=== PATIENT | male | born 1950 | race Caucasian/White ===

== ENCOUNTER 2016-05-13 12:13 | Day surgery (SDC) | payer MEDICARE ==
[2016-05-06 13:43] VITALS: BMI 30.1
[2016-05-13 14:04] LABS: Glucose,Whole Blood 93 mg/dL (75-99)
[2016-05-13] MEDS ORDERED: SODIUM CHLORIDE 0.9% 1,000 ML IV ONE (14:07)
[2016-05-13] MEDS ORDERED: SODIUM CHLORIDE 0.9% 1,000 ML IV SCH (14:08)
[2016-05-13] MEDS ORDERED: CLINDAMYCIN 900 MG in DEXTROSE 5% IN WATER 50 ML IVPB ONE ×2 (14:08)
[2016-05-13] MEDS ORDERED: ISOPROTERENOL 250 MCG/1.25 ML SYR IV ONE (14:21)
[2016-05-13] MEDS ORDERED: fentaNYL (PF) 50 MCG/ML 2 ML AMP ONE (14:21)
[2016-05-13] MEDS ORDERED: MIDAZOLAM 2 MG/2 ML VIAL ONE (14:21)
[2016-05-13] MEDS ORDERED: HYDROmorphone (PF) 1 MG/ML ONE (14:21)
[2016-05-13] MEDS ORDERED: diphenhydrAMINE 50 MG/ML 1 ML VIAL ONE (14:21)
[2016-05-13] MEDS ORDERED: PROPOFOL 10 MG/ML 20 ML VIAL IV ONE (14:21)
[2016-05-13 14:31] LABS: Anion Gap 13 mmol/L; Blood Urea Nitrogen 13 mg/dL (9-20); Calcium 9.1 mg/dL (8.4-10.2); Carbon Dioxide 25 mmol/L (22-30); Chloride 102 mmol/L (98-107); Glucose 91 mg/dL (74-99); Non-African American GFR(MDRD) >60 (>60 ml/min/1.73 sqM); Potassium 4.4 mmol/L (3.5-5.1); Sodium 140 mmol/L (137-145)
[2016-05-13 14:32] LABS: Basophils % (A) 1 %; CHCM 33.9; Eosinophils # (A) 0.2 k/uL (0-0.7); Eosinophils % (A) 4 %; HCT 40.6 % (39.0-53.0); HDW 2.68; HGB 13.7 gm/dL (13.0-17.5); Luc # (Auto) 0.21; Luc % (Auto) 4; Lymphocytes % (A) 20 %; MCHC 33.8 g/dL (31.0-37.0); MCV 94.6 fL (80.0-100.0); Mean Platelet Volume 7.4; Monocytes # (A) 0.5 k/uL (0-1.0); Monocytes % (A) 9 %; Neutrophils % (A) 62 %; RBC 4.29 m/uL (4.30-5.90); RDW 15.1 % (11.5-15.5); WBC 4.9 k/uL (3.8-10.6); WBC (Perox) 5.29
[2016-05-13] MEDS ORDERED: LIDOCAINE 2% INJ 20 MG/ML SQ ONE ×2 (15:02)
[2016-05-13] MEDS ORDERED: HEPARIN SODIUM (1,000 UNIT/ML) 1,000 UNIT in SODIUM CHLORIDE 0.9% 1,000 ML IRRIGATION ONE (15:23)
[2016-05-13] MEDS ORDERED: ACETAMINOPHEN TAB 325 MG TAB PO PRN (16:54)
[2016-05-13] MEDS ORDERED: HYDROcodone/APAP 5-325MG 1 EACH TAB PO PRN (16:54)
[2016-05-13] MEDS ORDERED: ACETAMINOPHEN IV (For NPO) 1,000 MG in EMPTY BAG 1 BAG IVPB ONE (16:54)
--- NOTE | 2016-05-13 18:06 | LTR ---
May 13, 2016 RE: Carlos Alberto Cuellar Dear Dr. Chandler, We had the pleasure of seeing Mr. Carlos Alberto Cuellar in electrophysiology followup. As you know, Mr. Cuellar has atrial fibrillation and is on amiodarone 200 mg a day. He also has recurrent atrial flutter. He underwent successful mapping and ablation for atrial flutter with demonstrated complete bidirectional block. Following that, on Isuprel I could not induce any atrial fibrillation. Therefore I would recommend continuing anticoagulation but reducing the dose of amiodarone to 100 mg p.o. daily. He will continue to follow up with you and Dr. Meier as before. Thank you for entrusting us with the care of your patient. Warm regards. Sincerely, Eren Allen M.D.
--- NOTE | 2016-05-13 18:18 | PCN ---
Mr. Carlos Alberto Cuellar has a history of atrial fibrillation and atrial flutter. He is on amiodarone 200 mg a day and on Xarelto. He was referred by Dr. Meier for atrial flutter ablation. The patient was brought to the EP lab in a fasting state. Written informed consent was obtained prior to the procedure. First his dual-chamber pacemaker that was implanted many years back at [facility] was interrogated and reprogrammed. Lead impedance was stable. Reprogramming was performed to DDD mode at 60 bpm. AV delay was prolonged to 300 ms. Intravenous antibiotics were administered. Venous sheaths were placed in the right and left femoral veins. Coronary sinus catheter was placed. A mapping catheter was placed in the high right atrium, later moved to the right ventricle. The patient has complete heart block and therefore His bundle catheter was unnecessary. Atrial ventricular extrastimulation was performed. No arrhythmias were induced in the drug-free state. On Isuprel, atrial extrastimulation as well as ventricular extrastimulation was performed. No atrial fibrillation, VT or any other SVT was induced. Intracardiac echocardiography was performed. The right and left atria were identified. The right atrial isthmus was identified. The tricuspid valve was tagged and 3-D anatomic mapping of the right atrial isthmus was performed. An irrigated-tip catheter was used and an RF line of block was made from the tricuspid annulus to the IVC. A complete line of block was made without any anatomic gaps, with 100% grid. Following that, pacing maneuvers were performed and bidirectional block was proven. The isthmus conduction time was greater than 230 ms on amiodarone 200 mg a day. Patient tolerated the procedure well without any acute complications. At the end of the procedure the pacemaker was again interrogated and then reprogrammed. Rate responsiveness was reprogrammed. AV delay was reprogrammed to 200 ms (DDDR 60 to 120 bpm). After that, atrial ventricular extrastimulation was again performed, and no SVT was induced, even on high-dose Isuprel. No atrial fibrillation was induced, either. PLAN: Reduce amiodarone to 100 mg p.o. daily and continue Xarelto and continue all other cardiac medications.
--- NOTE | 2016-05-13 18:20 | DS ---
DATE OF ADMISSION: 05/13/2016 DATE OF DISCHARGE: Mr. Carlos Alberto Cuellar is a 65-year-old male patient who underwent atrial flutter ablation. He was monitored overnight on telemetry and will be discharged home tomorrow if he is stable. He has a history of persistent atrial fibrillation. Amiodarone will be reduced to 100 mg p.o. daily. Xarelto will be continued. He will follow up with Dr. Meier as before.
[2016-05-13 21:03] LABS: Glucose,Whole Blood 140 mg/dL (75-99)
[2016-05-13] MEDS: ALLOPURINOL 100 MG TAB PO SCH (21:22)
[2016-05-13] MEDS: PREGABALIN 75 MG CAP PO SCH (21:22)
[2016-05-13] MEDS: metFORMIN 500 MG TAB PO SCH (21:22)
[2016-05-14 07:26] LABS: Glucose,Whole Blood 106 mg/dL (75-99)
[2016-05-14] MEDS ORDERED: PANTOPRAZOLE 40 MG TABLET PO SCH (07:30)
--- NOTE | 2016-05-14 07:44 | P.DS ---
Providers Attending physician: Eren Allen Primary care physician: Cameron [facility] Course: No chest discomfort no breathing trouble is lying flat in bed and then he has also sat at the edge of the bed No dizziness or lightheadedness Vitals stable afebrile 97.9F, pulse rate 60, blood pressure 111/68 mmHg pulse ox 92%. He uses CPAP mask last night No JVD No orthopnea Normal heart sounds no rub no gallop Normal breath sounds no rhonchi no crackles Abdomen is soft nontender Both groins of healed well no hematoma no swelling no pain No lower extremity edema Impression Persistent atrial fibrillation, in sinus rhythm, on oral amiodarone Recurrent atrial flutter, drug refractory Status post successful atrial flutter ablation Obstructive sleep apnea Without Adult-onset diabetes on oral meds Dyslipidemia Plan Ambulate in the hallways If vitals stable and groin is okay then he may go home by 10 AM today Follow-up with Dr. Dr. Meier in 1-2 weeks Continue anticoagulation with xarelto Reduce amiodarone to 100 mg by mouth daily Patient Condition at Discharge: Stable Plan - Discharge Summary Discharge Medication List Allopurinol [Zyloprim] 100 mg PO BID 03/31/14 [History] Atorvastatin [Lipitor] 80 mg PO DAILY 03/31/14 [History] Lisinopril [Zestril] 5 mg PO DAILY 03/31/14 [History] Amiodarone [Cordarone] 200 mg PO DAILY 01/22/16 [History] Cinnamon Bark [Cinnamon] 1,000 mg PO BID 01/22/16 [History] Fish Oil(Dose Unknown) 1 tab PO BID 01/22/16 [History] Furosemide [Lasix] 20 mg PO DAILY 01/22/16 [History] Omeprazole [PriLOSEC] 20 mg PO BID 01/22/16 [History] Pregabalin [Lyrica] 75 mg PO BID 01/22/16 [History] metFORMIN HCL [Glucophage] 500 mg PO BID 01/22/16 [History] Rivaroxaban [Xarelto] 20 mg PO DAILY 05/06/16 [History]
[2016-05-14] MEDS: ALLOPURINOL 100 MG TAB PO SCH (08:22)
[2016-05-14] MEDS: metFORMIN 500 MG TAB PO SCH (08:23)
[2016-05-14] MEDS: PREGABALIN 75 MG CAP PO SCH (08:23)
[2016-05-14 08:26] VITALS: RESP 18
[2016-05-14] MEDS ORDERED: FUROSEMIDE 20 MG TAB PO SCH (09:00)
[2016-05-14] MEDS ORDERED: ATORVASTATIN 80 MG TAB PO SCH (09:00)
[2016-05-14] MEDS ORDERED: RIVAROXABAN 10 MG TAB PO SCH (09:00)
[2016-05-14] MEDS ORDERED: LISINOPRIL 5 MG TAB PO SCH (09:00)
[2016-05-14 12:41] VITALS: BP 111/69; PULSE 54; TEMP 97.8
== END 2016-05-14 13:25 | disposition home or self-care (01) ==
LOC: CATHEP 12:13 → 3OBS 16:45 → CATHEP 05-14 13:25
PROVIDERS: ATTEND Internal Medicine Clinical Cardiac Electrophysiology
DX: I48.1 Persistent atrial fibrillation (principal); I48.0 Paroxysmal atrial fibrillation; I48.3 Typical atrial flutter; I44.2 Atrioventricular block, complete; E78.2 Mixed hyperlipidemia; G47.33 Obstructive sleep apnea (adult) (pediatric); E11.9 Type 2 diabetes mellitus without complications; Z79.84 Long term (current) use of oral hypoglycemic drugs; Z79.899 Other long term (current) drug therapy; Z82.49 Family history of ischemic heart disease and other diseases of the circulatory system; Z79.01 Long term (current) use of anticoagulants; Z95.0 Presence of cardiac pacemaker; Z88.0 Allergy status to penicillin; Z87.891 Personal history of nicotine dependence
CPT/HCPCS: 93623; 93662; 93613; 93653; 80048; 85025; C1894; C1769; C1893; C1730; C1759; C1732; J2001; J2250; J1200; J3010; J1644; J1170; J2704

== ENCOUNTER → 2018-05-07 | Outpatient (CLI) | payer MEDICARE ==
[2018-05-07 10:09] LABS: HCT 41.9 % (39.0-53.0); HGB 13.3 gm/dL (13.0-17.5); Hypochromasia Slight; MCH 28.4 pg (25.0-35.0); MCHC 31.8 g/dL (31.0-37.0); MCV 89.4 fL (80.0-100.0); Mean Platelet Volume 7.7; Platelet Count 182 k/uL (150-450); RBC 4.69 m/uL (4.30-5.90); RDW 15.4 % (11.5-15.5); WBC 6.6 k/uL (3.8-10.6)
[2018-05-07 10:20] LABS: Potassium 5.9 mmol/L (3.5-5.1)
== END ==
LOC: LABPAT 09:20
PROVIDERS: ATTEND Internal Medicine Interventional Cardiology
DX: Z01.812 Encounter for preprocedural laboratory examination (principal); I48.3 Typical atrial flutter
CPT/HCPCS: 80051; 82565; 82947; 84520; 85027

== ENCOUNTER 2018-05-19 06:09 | Day surgery (SDC) | payer MEDICARE ==
[2018-05-14 10:07] VITALS: BMI 30.1
[2018-05-19] MEDS ORDERED: SODIUM CHLORIDE 0.9% 1,000 ML IV SCH ×2 (06:12→07:45)
[2018-05-19 06:39] VITALS: TEMP 98.2
[2018-05-19 07:08] LABS: Glucose,Whole Blood 134 mg/dL (75-99)
[2018-05-19] MEDS ORDERED: PROPOFOL 10 MG/ML 20 ML VIAL IV ONE (07:15)
[2018-05-19] MEDS: BENZOCAINE SPRAY 1 CAN MUCOUS MEM ONE ×2 (07:15→07:19)
--- NOTE | 2018-05-19 07:55 | CE ---
CARDIAC ELECTROPHYSIOLOGY REPORT CARDIOVERSION PROCEDURE: INDICATION: Atrial flutter. PROCEDURE: After explaining the procedure to the patient with risks and the complication, after performing transesophageal echocardiogram and obtaining sedated state, a synchronized biphasic cardioversion using 200 joules was performed with religious of normal sinus rhythm. There was no immediate complication. RAN / ESTRADA: [id number] /
--- NOTE | 2018-05-19 07:55 | ECHOT ---
TRANSESOPHAGEAL ECHOCARDIOGRAM INDICATION: Evaluation of left atrial appendage. PROCEDURE: After explaining the procedure to the patient, its risks and the complications, blood pressure, heart rate, O2 saturation was monitored. He received sedation per anesthesia department. The probe was introduced in the esophagus without difficulty. Images were obtained. Following that, the probe was removed. There was no immediate complication. FINDINGS: Left atrial size is moderately dilated. Left atrial appendage is normal. Left ventricular size and systolic function normal. The aortic valve appears to be normal. Mitral valve is normal. Tricuspid valve is normal. Descending thoracic aorta appears to be normal. No evidence of shunting by contrast bubble study. No pericardial effusion. A wire is noted in the RV. Doppler pulse wave and color Doppler obtained revealed mild mitral and tricuspid regurgitation. There was no shunting by color Doppler study. CONCLUSION: 1. Dilated left atrium with normal appearance of left atrial appendage. 2. Normal left ventricular size and systolic function. 3. Mild mitral and tricuspid regurgitation. 4. No shunting across the interatrial septum. 5. Normal appearance of the descending thoracic aorta. MMODL / IJN: [id number] / MTDD
[2018-05-19 08:00] VITALS: RESP 16
[2018-05-19 08:51] VITALS: PULSE 60
[2018-05-19] MEDS ORDERED: NON-FORMULARY DRUG (Cinnamon Bark [Cinnamon] 1,000 MG) PO SCH (09:00)
[2018-05-19] MEDS ORDERED: ALLOPURINOL 100 MG TAB PO SCH (09:00)
[2018-05-19] MEDS ORDERED: metFORMIN 500 MG TAB PO SCH (09:00)
[2018-05-19] MEDS ORDERED: ATORVASTATIN 80 MG TAB PO SCH (09:00)
[2018-05-19] MEDS ORDERED: NON-FORMULARY DRUG (Omeprazole [Prilosec] 20 MG) PO SCH (09:00)
[2018-05-19] MEDS ORDERED: AMIODARONE 200 MG TAB PO SCH (09:00)
[2018-05-19] MEDS ORDERED: PREGABALIN 75 MG CAP PO SCH (09:00)
[2018-05-19] MEDS ORDERED: FUROSEMIDE 20 MG TAB PO SCH (09:00)
[2018-05-19] MEDS ORDERED: RIVAROXABAN 20 MG TAB PO SCH (09:00)
[2018-05-19 09:58] VITALS: BP 106/72
[2018-05-19] MEDS ORDERED: LISINOPRIL 5 MG TAB PO SCH (21:00)
== END 2018-05-19 09:15 | disposition home or self-care (01) ==
LOC: CATHCVL 06:09
PROVIDERS: ATTEND Internal Medicine Interventional Cardiology
DX: I48.3 Typical atrial flutter (principal); I08.1 Rheumatic disorders of both mitral and tricuspid valves; I48.1 Persistent atrial fibrillation; I10 Essential (primary) hypertension; E78.2 Mixed hyperlipidemia; E11.9 Type 2 diabetes mellitus without complications; K21.9 Gastro-esophageal reflux disease without esophagitis; Z95.0 Presence of cardiac pacemaker; Z79.01 Long term (current) use of anticoagulants; Z79.899 Other long term (current) drug therapy; Z79.84 Long term (current) use of oral hypoglycemic drugs; Z79.51 Long term (current) use of inhaled steroids; Z72.0 Tobacco use; Z96.659 Presence of unspecified artificial knee joint; Z88.0 Allergy status to penicillin; Z82.49 Family history of ischemic heart disease and other diseases of the circulatory system
CPT/HCPCS: 93312; 93320; 93325; 92960; J2704

== ENCOUNTER → 2018-07-20 | Outpatient (CLI) | payer MEDICARE ==
[2018-07-20 12:04] LABS: Albumin 4.7 g/dL (3.80-4.90); Albumin/Globulin Ratio 1.62 (1.60-3.17); Anion Gap 9.5 mmol/L (4.00-12.00); Calcium 9.4 mg/dL (8.7-10.3); Carbon Dioxide 23.5 mmol/L (21.6-31.8); Globulin 2.9 g/dL (1.6-3.3); Potassium 4.7 mmol/L (3.5-5.5); Total Bilirubin 0.6 mg/dL (0.3-1.2); Total Protein 7.6 g/dL (6.2-8.2)
== END | disposition home or self-care (01) ==
LOC: LABWHC1 06:53
PROVIDERS: ATTEND Internal Medicine Interventional Cardiology
DX: I48.1 Persistent atrial fibrillation (principal)
CPT/HCPCS: 36415; 80053; 84443

== ENCOUNTER → 2019-05-30 | Outpatient (CLI) | payer MEDICARE ==
[2019-05-30 08:47] LABS: Basophils % (A) 1 %; Eosinophils # (A) 0.4 k/uL (0-0.7); Eosinophils % (A) 6 %; HCT 38.1 % (39.0-53.0); HGB 12.5 gm/dL (13.0-17.5); Lymphocytes # (A) 1.4 k/uL (1.0-4.8); Lymphocytes % (A) 24 %; MCH 30.1 pg (25.0-35.0); MCHC 32.9 g/dL (31.0-37.0); MCV 91.5 fL (80.0-100.0); Mean Platelet Volume 8.4; Monocytes # (A) 0.5 k/uL (0-1.0); Monocytes % (A) 9 %; Neutrophils # (A) 3.3 k/uL (1.3-7.7); Neutrophils % (A) 57 %; Platelet Count 182 k/uL (150-450); RBC 4.16 m/uL (4.30-5.90); RDW 14.8 % (11.5-15.5); WBC 5.8 k/uL (3.8-10.6)
[2019-05-30 11:42] LABS: Albumin 4.5 g/dL (3.80-4.90); Albumin/Globulin Ratio 1.96 (1.60-3.17); Anion Gap 6.8 mmol/L (4.00-12.00); Carbon Dioxide 24.2 mmol/L (21.6-31.8); Chol/HDL Ratio 3.28; Globulin 2.3 g/dL (1.6-3.3); LDL Cholesterol,Calculated 62.6 mg/dL (0.0-131.0); Non-African American GFR(CKD) 75.9 (60.0-200.0); Potassium 4.7 mmol/L (3.5-5.5); Total Bilirubin 0.5 mg/dL (0.2-1.2); Total Protein 6.8 g/dL (6.2-8.2); VLDL Calculation 26.4 mg/dL (5.00-40.00)
[2019-05-30 14:09] LABS: Hemoglobin A1C 7.6 % (4.0-6.0)
== END | disposition home or self-care (01) ==
LOC: LABWHC1 06:36
PROVIDERS: ATTEND Nurse Practitioner Adult Health
DX: I48.21 Permanent atrial fibrillation (principal); I10 Essential (primary) hypertension; E11.9 Type 2 diabetes mellitus without complications; E11.40 Type 2 diabetes mellitus with diabetic neuropathy, unspecified; E11.69 Type 2 diabetes mellitus with other specified complication; E78.2 Mixed hyperlipidemia; D72.829 Elevated white blood cell count, unspecified
CPT/HCPCS: 36415; 80053; 80061; 83036; 84443; 85025

== ENCOUNTER 2019-06-12 07:32 | Emergency (ER) | payer MEDICARE ==
[2019-06-12 07:41] VITALS: TEMP 97.3
[2019-06-12] MEDS ORDERED: DIPH,PERTUS(ACELL)TETVAC-LF 0.5 ML VIAL IM ONE (07:41)
--- NOTE | 2019-06-12 07:50 | ED ---
Head Injury HPI - General Chief complaint: Head Injury Stated complaint: Fell in driveway/head injury Time Seen by Provider: 06/12/19 07:41 Source: patient, RN notes reviewed, old records reviewed Mode of arrival: wheelchair Limitations: no limitations - History of Present Illness Initial comments: Patient is a 68-year-old male, history of falling on the ice this morning falling backward hitting his head. He does complain of some neck pain as well. Patient is on several toe. Patient reports that his vision is blurry afterwards but does not return to normal. Patient states that he just feels somewhat confused. Patient has had no associated injuries related to the fall. Denies acute back pain. Denies any pain in his arm and legs. - Related Data Home Medications Medication Instructions Recorded Confirmed RX: Allopurinol [Zyloprim] 100 mg PO BID 03/31/14 05/19/18 RX: Atorvastatin [Lipitor] 80 mg PO DAILY 03/31/14 05/19/18 RX: Lisinopril [Zestril] 5 mg PO HS 03/31/14 05/19/18 Amiodarone [Cordarone] 200 mg PO BID 01/22/16 05/19/18 Cinnamon Bark [Cinnamon] 1,000 mg PO BID 01/22/16 05/19/18 Fish Oil(Dose Unknown) 1 tab PO BID 01/22/16 05/19/18 Furosemide [Lasix] 20 mg PO DAILY 01/22/16 05/19/18 Omeprazole [PriLOSEC] 20 mg PO BID 01/22/16 05/19/18 Pregabalin [Lyrica] 75 mg PO BID 01/22/16 05/19/18 metFORMIN HCL [Glucophage] 500 mg PO BID 01/22/16 05/19/18 Rivaroxaban [Xarelto] 20 mg PO DAILY 05/06/16 05/19/18 Allergies/Adverse reactions: Allergies Allergy/AdvReac Type Severity Reaction Status Date / Time Penicillins Allergy Rash/Hives Verified 06/12/19 07:37 Review of Systems ROS Statement: Those systems with pertinent positive or pertinent negative responses have been documented in the HPI. ROS Other: All systems not noted in ROS Statement are negative. Past Medical History Past Medical History: Diabetes Mellitus, GERD/Reflux, Hyperlipidemia, Sleep Apnea/CPAP/BIPAP Additional Past Medical History / Comment(s): GOUT, SEE DR HEART'S HISTORY AND PHYSICAL, C PAP MACHINE, RIGHT GREAT TOE-POSSIBLE INFECTION SEEING DR TODAY) History of Any Multi-Drug Resistant Organisms: None Reported Past Surgical History: Joint Replacement, Pacemaker Additional Past Surgical History / Comment(s): RIGHT KNEE REPLACEMENT X2 Past Anesthesia/Blood Transfusion Reactions: No Reported Reaction Type of Cardiac Device: Permanent Pacemaker Device Placement Date:: 02-21-2013 Past Psychological History: No Psychological Hx Reported Smoking Status: Former smoker Past Alcohol Use History: Occasional Past Drug Use History: None Reported - Past Family History Mother Family Medical History: No Reported History Father Family Medical History: Pneumonia Additional Family Medical History / Comment(s): "heart problems" General Exam - General Exam Comments Initial Comments: 68-year-old male. Alert and oriented X2. Stated the date was May 1999. Limitations: no limitations General appearance: alert, in no apparent distress Head exam: Present: atraumatic, normocephalic, normal inspection, other ( has a irregular y shaped 5 cm laceration over the posterior scalp.) Eye exam: Present: normal appearance, PERRL, EOMI, other (pinguencula bilaterally ). Absent: scleral icterus, conjunctival injection, periorbital swelling ENT exam: Present: normal exam, mucous membranes moist Neck exam: Present: normal inspection. Absent: tenderness, meningismus, lymphadenopathy Respiratory exam: Present: normal lung sounds bilaterally. Absent: respiratory distress, wheezes, rales, rhonchi, stridor Cardiovascular Exam: Present: regular rate, normal rhythm, normal heart sounds. Absent: systolic murmur, diastolic murmur, rubs, gallop, clicks GI/Abdominal exam: Present: soft, normal bowel sounds. Absent: distended, tenderness, guarding, rebound, rigid Extremities exam: Present: normal inspection, full ROM, normal capillary refill. Absent: tenderness, pedal edema, joint swelling, calf tenderness Back exam: Present: normal inspection Neurological exam: Present: alert, oriented X3, CN II-XII intact Psychiatric exam: Present: normal affect, normal mood Skin exam: Present: warm, dry, intact, normal color. Absent: rash Course Vital Signs 06/12/19 07:37 Temperature 97.3 F L Pulse Rate 63 Respiratory 18 Rate Blood Pressure 155/77 O2 Sat by Pulse 95 Oximetry Procedures - Laceration Laceration #1 Indication: laceration Site: scalp Size (cm): 5 Description: irregular Depth: simple, single layer Anesthetic Used: lidocaine 1% Anesthesia Technique: local infiltration Amount (mls): 5 Pre-repair: wound explored Type of Sutures: other (pasha) Number of Sutures: 5 Patient Tolerated Procedure: well, no complications Medical Decision Making - Medical Decision Making 68-year-old male presents today for slip and fall and so on ice this morning. He is on several toe. He reports he fell back and hit his head. Patient has a Y-shaped laceration of the posterior scalp. Start emergency department somewhat confused. Stated the year was 1999, month of May. Patient had no other acute knowledge deficits. Patient CT brain and C-spine was ordered. Patient has no evidence of any intracranial hemorrhage. C-spine shows no fracture but evidence degenerative changes. Also incidental note of groundglass opacity within the lungs concern for alveolitis pneumonitis or CHF. Patient has no shortness of breath or any chest discomfort. Lungs Are clear to auscultation. Patient was advised that he does have a concussion to be resting and stable from work today. His laceration was closed with 5 pasha. States TDAP is up todate. I discussed the Patient should be monitored and had injury instructions including return parameters. I discussed monitoring for any signs of infection over the laceration. Family, his understands treatment plan. - Radiology Data Radiology results: report reviewed CT of the brain shows no acute intracranial abnormality. Mild degenerative changes. Right posterior parietal scalp hematoma. Chronic pansinusitis. CT of the C-spine shows no acute osseous lesion. Mild/moderate to severe degenerative changes are noted. Diffuse from glass opacity the chest may represent pneumonitis alveolitis or CHF. Correlate clinically. Disposition Clinical Impression: Concussion, Scalp laceration Disposition: HOME SELF-CARE Condition: Good Instructions (If sedation given, give patient instructions): Concussion (ED) Additional Instructions: Patient should be monitored for the next 24-48 hours. If there is any signs of mental status changes, vomiting . Return to the ER for evaluation. Patient to take Motrin Tylenol for pain. Please return to the emergency room in 8-10 days to have pasha removed. Please leave wound covered for the first 24-48 hours and then leave open to air after that time. Please use clean soap and water to clean the staple area to prevent scabbing over the top of your apsha. Please watch for any signs of infection which may include but not limited to increased pain, swelling, redness, fever or chills. Please return to the emergency room if any signs of infection do occur. Please return to the emergency room for any other concerns or complications. Is patient prescribed a controlled substance at d/c from ED?: No Referrals: Cameron Chandler MD [Primary Care Provider] - 1-2 days Time of Disposition: 09:09
--- NOTE | 2019-06-12 08:24 | CT ---
EXAMINATION TYPE: CT brain shante millard con DATE OF EXAM: 06/12/2019 COMPARISON: NONE HISTORY: Fall, head injury CT DLP: 1870.6 mGycm Automated exposure control for dose reduction was used. TECHNIQUE: CT scan of the head and cervical spine are performed without contrast. FINDINGS: BRAIN: There are mild, generalized changes of sulcal prominence and ventriculomegaly compatible with mild atrophy. There is mild, diffuse periventricular white matter lucency, compatible with white danisha er ischemic change. There is no acute focal lesion, mass effect or midline shift identified. I do not see evidence of intracranial blood. There is a right posterior parietal scalp hematoma. The bony calvarium is intact. There is mucoperios teal thickening involving the frontal, ethmoidal and maxillary sinuses. IMPRESSION: 1. NO ACUTE INTRACRANIAL ABNORMALITY. 2. MILD DEGENERATIVE CHANGE. 3. RIGHT POSTERIOR PARIETAL SCALP HEMATOMA. 4. CHRONIC PANSINUSITIS. CERVICAL SPINE: There is groundglass opacity throughout the visualized lungs. This may represent alve olitis, pneumonitis or congestive heart failure. 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 Prevertebral soft tissues are normal. There is mild reversal of the normal cervical lordosis. Alignment is maintained. Atlantoaxial relatio nships are normal. There is diffuse degenerative disc disease and hypertrophic spondylosis with relative sparing of C2-C 3. There is diffuse uncovertebral joint disease. There is facet arthropathy on the left at C2-3 as we ll as lesser extent C3-4 and C4-5. No definite protrusion is seen. No fracture is identified. IMPRESSION: 1. NO ACUTE OSSEOUS LESION. 2. MODERATELY SEVERE DEGENERATIVE CHANGE. 3. DIFFUSE GROUNDGLASS OPACITY IN THE CHEST MAY REPRESENT PNEUMONITIS, ALVEOLITIS OR CONGESTIVE HEART FAILURE. PLEASE CORRELATE CLINICALLY.
[2019-06-12 09:12] VITALS: BP 156/80; PULSE 68
[2019-06-12 09:17] VITALS: RESP 18
== END 2019-06-12 09:17 | disposition home or self-care (01) ==
LOC: EC 07:32
DX: S01.01XA Laceration without foreign body of scalp, initial encounter (principal); S06.0X0A Concussion without loss of consciousness, initial encounter; H11.153 Pinguecula, bilateral; M54.2 Cervicalgia; E11.9 Type 2 diabetes mellitus without complications; K21.9 Gastro-esophageal reflux disease without esophagitis; E78.5 Hyperlipidemia, unspecified; M10.9 Gout, unspecified; G47.30 Sleep apnea, unspecified; Z87.891 Personal history of nicotine dependence; Z88.0 Allergy status to penicillin; Z79.01 Long term (current) use of anticoagulants; Z79.84 Long term (current) use of oral hypoglycemic drugs; Z79.899 Other long term (current) drug therapy; Z99.89 Dependence on other enabling machines and devices; W00.0XXA Fall on same level due to ice and snow, initial encounter; Z53.20 Procedure and treatment not carried out because of patient's decision for unspecified reasons
CPT/HCPCS: 12002; 70450; 72125; 99284

== ENCOUNTER → 2019-06-23 | Outpatient (CLI) | payer MEDICARE ==
--- NOTE | 2019-06-23 08:05 | CT ---
EXAMINATION TYPE: CT brain wo con DATE OF EXAM: 06/23/2019 COMPARISON: June 12, 2019 HISTORY: Dizziness post fall on 06/12/2019 CT DLP: 1081.[address] of the brain was performed. The ventricles, basal cisterns and sulci overlying the cerebral convexities demonstrate mild enlargem ent. There is no evidence for intracranial hemorrhage or sulcal effacement. There is decreased attenuation about the periventricular white matter and deep white matter of both c erebral hemispheres, compatible with chronic small vessel ischemia. Differential diagnosis does inclu de demyelination. No mass effects are seen.No midline shift. Osseous calvarium is intact. If symptoms persist consider MRI. IMPRESSION: 1. Age related atrophic and chronic small vessel ischemic change without acute intracranial process s een at this time.
== END | disposition home or self-care (01) ==
LOC: RADCTMAIN 07:05
PROVIDERS: ATTEND Family Medicine
DX: G31.1 Senile degeneration of brain, not elsewhere classified (principal); I67.82 Cerebral ischemia; Z88.0 Allergy status to penicillin
CPT/HCPCS: 70450

== ENCOUNTER → 2019-12-07 | Outpatient (CLI) | payer MEDICARE ==
[2019-12-07 15:21] LABS: HCT 34.3 % (39.0-53.0); HGB 11.1 gm/dL (13.0-17.5); Hypochromasia Slight; MCH 29.5 pg (25.0-35.0); MCHC 32.4 g/dL (31.0-37.0); MCV 91.1 fL (80.0-100.0); Mean Platelet Volume 8.2; Platelet Count 183 k/uL (150-450); RBC 3.77 m/uL (4.30-5.90); WBC 6.9 k/uL (3.8-10.6)
[2019-12-07 15:38] LABS: Albumin 4.2 g/dL (3.5-5.0); Calcium 9.5 mg/dL (8.4-10.2); Potassium 4.7 mmol/L (3.5-5.1); Total Bilirubin 0.9 mg/dL (0.2-1.3); Total Protein 7.2 g/dL (6.3-8.2)
== END | disposition home or self-care (01) ==
LOC: LABPAT 14:15
PROVIDERS: ATTEND Internal Medicine Interventional Cardiology
DX: Z01.818 Encounter for other preprocedural examination (principal); E78.2 Mixed hyperlipidemia; I48.11 Longstanding persistent atrial fibrillation
CPT/HCPCS: 36415; 80053; 84443; 85027

== ENCOUNTER → 2019-12-15 | Day surgery (SDC) | payer MEDICARE ==
[2019-12-08 15:39] VITALS: BMI 31.5
[~2019-12-15] MED LIST: AMIODARONE 200 MG TAB PO SCH; ATORVASTATIN 80 MG TAB PO SCH; FUROSEMIDE 20 MG TAB PO SCH; LACTATED RINGERS 1,000 ML IV SCH; LIDOCAINE 1% INJ 10MG/ML (20 ML MDV) ONE; NON FORMULARY DRUG (Cinnamon Bark [Cinnamon] 1,000 MG) PO SCH; PANTOPRAZOLE 40 MG TABLET PO SCH; PREGABALIN 75 MG CAP PO SCH; PROPOFOL 10 MG/ML 20 ML VIAL IV ONE; RIVAROXABAN 20 MG TAB PO SCH; SODIUM CHLORIDE 0.9% 1,000 ML IV SCH; allopurinoL 100 MG TAB PO SCH; lisinopriL 5 MG TAB PO SCH; metFORMIN 500 MG TAB PO SCH
[2019-12-15 06:57] VITALS: TEMP 97.8
[2019-12-15] MEDS: BENZOCAINE SPRAY 1 CAN MUCOUS MEM ONE ×2 (07:30→07:39)
[2019-12-15 07:33] LABS: Glucose,Whole Blood 128 mg/dL (75-99)
[2019-12-15 08:46] VITALS: RESP 16
[2019-12-15 09:12] VITALS: BP 119/71; PULSE 68
--- NOTE | 2019-12-15 09:16 | ECHOT ---
TRANSESOPHAGEAL ECHOCARDIOGRAM INDICATION: Evaluation of left atrial appendage. PROCEDURE: After explaining the procedure to the patient, its risks and complications, his blood pressure, heart rate, O2 saturation were monitored. The throat was sprayed with Cetacaine. He received sedation per Anesthesia Department. The probe was introduced in the esophagus without difficulties. Images were obtained. Following that, the probe was removed. There was no immediate complication. FINDINGS: Right atrial size is dilated. Left atrial appendage is normal. Left ventricular size and systolic function normal. The aortic valve revealed mild fibrocalcific change of the aortic cusp with preserved opening. Mitral valve appears to be normal. Tricuspid valve appears to be normal. Descending thoracic aorta appears to be normal. No pericardial effusion was noted. Contrast bubble study revealed no evidence of shunting across the interatrial septum. Doppler pulse wave and color Doppler were obtained and revealed moderate mitral and tricuspid regurgitation. There was no shunting by color Doppler study. CONCLUSION: 1. Biatrial enlargement. 2. Normal left ventricular size and systolic function. 3. Normal appearance right of the left atrial appendage. 4. Moderate mitral and tricuspid regurgitation. 5. No shunting by color Doppler study. MMODL / IJN: [id number] /
--- NOTE | 2019-12-15 09:46 | CE ---
CARDIAC ELECTROPHYSIOLOGY REPORT CARDIOVERSION PROCEDURE NOTE: INDICATION: Atrial flutter. PROCEDURE: After explaining the procedure to the patient and the risks and the complications, after obtaining transesophageal echocardiogram and sedated state, a synchronized biphasic cardioversion using 200 joules was performed with hinduism of normal sinus rhythm. There was no immediate complication. RAN / ESTRADA: [id number] /
== END | disposition home or self-care (01) ==
LOC: CATHCVL 06:19
PROVIDERS: ATTEND Internal Medicine Interventional Cardiology
DX: I08.1 Rheumatic disorders of both mitral and tricuspid valves (principal); I48.3 Typical atrial flutter; I48.19 Other persistent atrial fibrillation; I10 Essential (primary) hypertension; E78.2 Mixed hyperlipidemia; E11.9 Type 2 diabetes mellitus without complications; G47.33 Obstructive sleep apnea (adult) (pediatric); K21.9 Gastro-esophageal reflux disease without esophagitis; M19.90 Unspecified osteoarthritis, unspecified site; Z88.0 Allergy status to penicillin; Z79.01 Long term (current) use of anticoagulants; Z79.84 Long term (current) use of oral hypoglycemic drugs; Z79.51 Long term (current) use of inhaled steroids; Z79.899 Other long term (current) drug therapy; Z95.0 Presence of cardiac pacemaker; Z96.659 Presence of unspecified artificial knee joint; Z87.891 Personal history of nicotine dependence; Z82.49 Family history of ischemic heart disease and other diseases of the circulatory system
CPT/HCPCS: 93312; 93320; 93325; 92960; J2001; J2704

== ENCOUNTER → 2020-03-20 | Outpatient (CLI) | payer MEDICARE ==
[2020-03-20 10:56] LABS: African American GFR (CKD) 63.6 (60.0-200.0); Albumin 4.7 g/dL (3.80-4.90); Albumin/Globulin Ratio 1.68 (1.60-3.17); Anion Gap 8.9 mmol/L (4.00-12.00); BUN/Creat Ratio 13.08 Ratio (12.00-20.00); Calcium 9.6 mg/dL (8.7-10.3); Carbon Dioxide 27.1 mmol/L (21.6-31.8); Globulin 2.8 g/dL (1.6-3.3); Non-African American GFR(CKD) 54.9 (60.0-200.0); Total Bilirubin 0.6 mg/dL (0.3-1.2); Total Protein 7.5 g/dL (6.2-8.2)
== END | disposition home or self-care (01) ==
LOC: LABWHC1 07:31
PROVIDERS: ATTEND Internal Medicine Interventional Cardiology
DX: I48.11 Longstanding persistent atrial fibrillation (principal)
CPT/HCPCS: 36415; 80053; 84443

== ENCOUNTER → 2020-05-09 | Outpatient (CLI) | payer MEDICARE ==
--- NOTE | 2020-05-09 11:02 | CT ---
EXAMINATION TYPE: CT shoulder RT wo con DATE OF EXAM: 05/09/2020 COMPARISON: None HISTORY: Rt shoulder pain CT DLP: 475.9 mGycm Automated exposure control for dose reduction was used. Technique: Axial images 3 mm thick sections. Reconstructed images in the coronal and sagittal plane. Three-D reconstructed images from the technologist on a separate computer are reviewed. FINDINGS: Clavicle is intact. Acromioclavicular junction appears unremarkable. Humerus articulates with the gle noid. No acute scapular fractures are evident. Proximal humerus appears normal. Acromiohumeral space is preserved. No significant joint effusion is evident There is a tiny calcification near the distal supraspinatus region likely is a small amount of calcif ied tendinosis. IMPRESSION: 1. CHRONIC CHANGES. 2. NO ACUTE OSSEOUS ABNORMALITY.
== END | disposition home or self-care (01) ==
LOC: RADCTMAIN 07:29
PROVIDERS: ATTEND Family Medicine
DX: M75.101 Unspecified rotator cuff tear or rupture of right shoulder, not specified as traumatic (principal); Z88.0 Allergy status to penicillin

== ENCOUNTER → 2020-08-06 | Outpatient (CLI) | payer MEDICARE ==
[2020-08-06 08:05] LABS: HCT 38.4 % (39.0-53.0); HGB 12.5 gm/dL (13.0-17.5); Hypochromasia Slight; MCH 29.2 pg (25.0-35.0); MCHC 32.5 g/dL (31.0-37.0); MCV 89.8 fL (80.0-100.0); Mean Platelet Volume 7.9; Platelet Count 200 k/uL (150-450); RBC 4.27 m/uL (4.30-5.90); WBC 6.7 k/uL (3.8-10.6)
[2020-08-06 08:26] LABS: Potassium 5.4 mmol/L (3.5-5.1)
== END | disposition home or self-care (01) ==
LOC: LABPAT 06:57
PROVIDERS: ATTEND Internal Medicine Clinical Cardiac Electrophysiology
DX: Z01.818 Encounter for other preprocedural examination (principal); I48.11 Longstanding persistent atrial fibrillation
CPT/HCPCS: 36415; 80051; 82565; 84520; 85027

== ENCOUNTER 2020-08-09 06:23 | Day surgery (SDC) | payer MEDICARE ==
[2020-08-06 14:36] VITALS: BMI 30.1
[2020-08-09] MEDS ORDERED: SODIUM CHLORIDE 0.9% 1,000 ML IV SCH (06:41)
[2020-08-09] MEDS ORDERED: LACTATED RINGERS 1,000 ML IV SCH (06:41)
[2020-08-09] MEDS ORDERED: SODIUM CHLORIDE 0.9% 500 ML 500 ML IV ONE ×2 (06:45→15:30)
[2020-08-09 07:12] LABS: Glucose,Whole Blood 140 mg/dL (75-99)
[2020-08-09] MEDS ORDERED: HEPARIN SODIUM,PORCINE 10,000 UNIT/ML 1 ML VIAL ONE (12:45)
[2020-08-09] MEDS ORDERED: LIDOCAINE 1% INJ 10MG/ML (20 ML MDV) ONE (12:45)
[2020-08-09] MEDS ORDERED: SUCCINYLCHOLINE CHLORIDE 100 MG/5 ML SYR IV ONE (12:45)
[2020-08-09] MEDS ORDERED: MIDAZOLAM 2 MG/2 ML VIAL ONE (12:45)
[2020-08-09] MEDS ORDERED: fentaNYL (PF) 50 MCG/ML 2 ML AMP ONE (12:45)
[2020-08-09] MEDS ORDERED: PHENYLEPHRINE-0.9% NACL SYG 1,000 MCG/10 ML SYRINGE ONE (12:45)
[2020-08-09] MEDS ORDERED: ROCURONIUM 10 MG/ML (5 ML VIAL) IV ONE (12:45)
[2020-08-09] MEDS ORDERED: PROPOFOL 10 MG/ML 20 ML VIAL IV ONE (12:45)
[2020-08-09] MEDS: CLINDAMYCIN 900 MG in DEXTROSE 5% IN WATER 50 ML IVPB STA ×4 (13:09→13:15)
--- NOTE | 2020-08-09 13:14 | P.HPCAR ---
History of Present Illness This is Dr. Allen dictating an H/P on this patient The patient was interviewed and examined IMPRESSION / ASSESSMENT: Persistent symptomatic atrial fibrillation, failed electrical cardioversion History of typical atrial flutter status post ablation 2017 Underlying sick sinus syndrome status post dual-chamber pacemaker implantation, [facility] medical PLAN: Proceed with A. fib ablation. Pulmonary vein isolation and linear ablation in the left atrium Pacemaker interrogation and reevaluation in sinus rhythm to determine his RV pacing percentage in sinus rhythm Continue Xarelto HPI Patient complains of shortness of breath during atrial fibrillation. He denies any chest discomfort dizziness lightheadedness no lower extremity edema At this time, today he complained of being short of breath even when he lay down although he appeared comfortable No fever chills cough ROS: No fever chills or rigors, no cough, phlegm or expectoration, no nausea, vomiting or diarrhea, no hematuria, dysuria, no musculoskeletal complaints, no strokes or seizures, no skin lesions. EXAMINATION: 96.9F, pulse rate in the 60s blood pressure 139 78 mmHg Breath sounds are reduced bilaterally No JVD Normal S1 normal S2 no murmurs Abdomen is soft No lower extremity edema REVIEW OF LABS, ECG & MEDICAL DATA Labs are reviewed, sodium 140, potassium 4.8, BUN 23 and creatinine 1.24. Hemoglobin A1c 7.6% Potassium 4.8 Medications reviewed and include Xarelto 20 mg by mouth daily, lisinopril, amiodarone 400 mg daily and atorvastatin Medical problems include type 2 diabetes. He is on metformin Physical Exam Vitals: Vital Signs Temp Pulse Resp BP Pulse Ox 08/09/20 07:15 96.9 F L 60 16 139/78 96 Intake and Output 08/08/20 08/09/20 08/09/20 22:59 06:59 14:59 Intake Total 20 56 Balance 20 56 Intake: IV 20 56 Other: Weight 100.8 kg Past Medical History Past Medical History: Atrial Fibrillation, Diabetes Mellitus, GERD/Reflux, Hyperlipidemia, Sleep Apnea/CPAP/BIPAP Additional Past Medical History / Comment(s): GOUT, SEE DR ALLEN'S HISTORY AND PHYSICAL, C PAP MACHINE, History of Any Multi-Drug Resistant Organisms: None Reported Past Surgical History: Joint Replacement, Pacemaker Additional Past Surgical History / Comment(s): RIGHT KNEE REPLACEMENT X2 Past Anesthesia/Blood Transfusion Reactions: No Reported Reaction Type of Cardiac Device: Permanent Pacemaker Device Placement Date:: 02-21-2013 Smoking Status: Former smoker - Past Family History Mother Family Medical History: No Reported History Father Family Medical History: Pneumonia Additional Family Medical History / Comment(s): "heart problems" Physical Examination Vital Signs Temp Pulse Resp BP Pulse Ox 08/09/20 07:15 96.9 F L 60 16 139/78 96 Intake and Output 08/08/20 08/09/20 08/09/20 22:59 06:59 14:59 Intake Total 20 56 Balance 20 56 Intake: IV 20 56 Other: Weight 100.8 kg Results 08/09/20 06:50 Comprehensive Metabolic Panel 08/09/20 Range/Units 06:50 Potassium 4.8 (3.5-5.1) mmol/L Current Medications Generic Name Dose Route Start Last Admin Trade Name Freq PRN Reason Stop Dose Admin Lactated Ringer's 1,000 mls @ 20 mls/hr 08/09/20 06:41 Lactated Ringers IV 09/08/20 06:42 .Q24H KORI Sodium Chloride 1,000 mls @ 20 mls/hr 08/09/20 06:41 Saline 0.9% IV 09/08/20 06:42 .Q24H KORI Clindamycin Phosphate 900 mg/ 56 mls @ 50 mls/hr 08/09/20 12:45 08/09/20 13:09 Dextrose/Water IVPB 08/09/20 13:52 56 mls ONCE STA Administration Intake and Output 08/08/20 08/09/20 08/09/20 22:59 06:59 14:59 Intake Total 20 56 Balance 20 56 Intake: IV 20 56 Other: Weight 100.8 kg Patient Weight 08/10/20 06:59 Weight 100.8 kg 08/09/20 06:50
[2020-08-09] MEDS ORDERED: HEPARIN SOD,PORK IN 0.45% NACL 25,000 UNIT in 0.45% NACL 1 250ML.BAG IV ONE (13:24)
[2020-08-09] MEDS ORDERED: HEPARIN SODIUM (1,000 UNIT/ML) 1,000 UNIT in SODIUM CHLORIDE 0.9% 1,000 ML IRRIGATION ONE (13:25)
[2020-08-09] MEDS ORDERED: LIDOCAINE 1% INJ 10MG/ML (20 ML MDV) SQ ONE (13:38)
[2020-08-09] MEDS: IOPAMIDOL-370 100ML BTL INJ ONE ×2 (15:20→19:00)
[2020-08-09] MEDS ORDERED: PROTAMINE SULFATE 10 MG/ML 5 ML VIAL IV ONE (18:20)
[2020-08-09] MEDS ORDERED: ACETAMINOPHEN IV (For NPO) 1,000 MG in EMPTY BAG 1 BAG IVPB ONE (18:45)
--- NOTE | 2020-08-09 18:50 | P.EPPROC ---
- EP Procedure Note Electrophysiology Procedure Note: PROCEDURE A. fib ablation DIAGNOSIS Persistent Atrial fibrillation, symptomatic, refractory to therapy RESULT No left atrial appendage mass seen on intracardiac echo Successful A. fib ablation/pulmonary vein isolation of all veins using cryo- ablation Complete entrance block in all 4 veins confirmed No evidence for phrenic nerve injury Linear ablation left atrial roof Linear ablation of the left atrial septum and posterior limbus of the fossa ovalis along complex fractionated electrograms Linear ablation mitral isthmus Esophageal deflection NO Electrical cardioversion with a synchronized shock across the chest YES PROCEDURE DETAILS Patient was brought to the EP lab in a fasting state. Written informed consent was obtained prior to the procedure. Procedure performed under general anesthesia Pacemaker, [employer] was interrogated. Reprogrammed. Rate responsiveness was turned off. Reprogrammed to DDD 50 PPM with an AV delay of about 200 ms After initial muscle relaxant use, muscle relaxants were not given thereafter in order to assess phrenic nerve during procedure. Patient prepped and draped as per protocol Full cryo-set up with standard preparation of the cryoablation tools done. Femoral Venous access obtained on the right and left groins Venous and arterial Sheaths placed. Diagnostic catheters for the high right atrium, phrenic nerve stimulation and pacing, His bundle, RV and coronary sinus placed Intracardiac echo catheter placed. Long sheath placed in the right atrium Left and right transseptal catheterization performed under intracardiac echo guidance. Intravenous heparin with aCT above 300 Later, catheter positioning and balloon positioning in the left atrium, under intracardiac echo guidance Diagnostic EP study with Coronary sinus pacing and recording Baseline measurements AV sequential pacing Atrial pacing performed from the coronary sinus Transseptal catheterization performed RA pressure 27/03/12 LA pressure 24/11/10 Transseptal catheterization performed with standard sheath. The cryoablation sheath was then placed with an over the wire exchange without any acute complications. All 4 pulmonary veins were isolated in the following sequence: Left superior followed by left inferior followed by right superior followed by right inferior The cryo-ablation balloon was placed at the os of each vein 1.5 mL of IV dye was injected to confirm an occluded vein Goal during cryoablation was to achieve complete occlusion of the pulmonary vein, achieve -30 degrees C at 30 seconds and achieve -40 degrees C at 60 seconds and a time to effect of less than 60-90 seconds, . If not the balloon was repositioned to obtain this result After completion of Cryoblation with durations from 180-240 seconds, entrance block was confirmed with the Attain circular catheter in a roving fashion around the antrum of the pulmonary veins Phrenic nerve pacing was performed from the SVC, right innominate vein area and diaphragm voltage was monitored. Diaphragmatic contractions were also monitored manually for strength of contraction. Parameter goals for each cryo freeze Complete occlusion of the appropriate vein -30 degrees C by 30 seconds -40 degrees C by 60 seconds Minimum between minus 40-55 degrees C Thaw time greater than 10 seconds Balloon visualized by intracardiac echo The esophagus was intubated. Esophageal Temperature monitoring with a CIRCA catheter formed. Esophageal deflection for hypothermia of the esophagus below 30 degrees C Left superior pulmonary vein Complete isolation, entrance block Left inferior pulmonary vein Complete isolation, entrance block Right superior pulmonary vein, during phrenic nerve pacing Complete isolation, entrance block Right inferior pulmonary vein, during phrenic nerve pacing Complete isolation, entrance block At the end of the procedure the Achieve catheter was once again used to check for entrance block Phrenic nerve stimulation was performed to confirm diaphragmatic stimulation the end of the procedure Cine fluoroscopy was performed at the very end of the procedure to confirm movement of both diaphragms with inspiration and expiration Following that an irrigated tip RF catheter was placed in the left atrium 3-D electro-anatomic mapping was performed. Fossa ovalis was identified and tagged only veins were tagged left atrial appendage was mapped RF ablation was performed along fractionated signals in the roof A complete RF line of block was made in the left atrial roof This was later interrogated with voltage mapping during sinus rhythm. Complete line of block noted RF ablation was performed along the septum of the left atrium along Fractionated electrograms especially along the posterior limbus of the fossa ovalis Later this line was interrogated with voltage mapping and was found to be complete, in sinus rhythm This resulted in organization of the atrial activation but without termination. However with catheter manipulation in the mitral isthmus, the activation pattern in the left atrium change to the rapid atrial tachycardia, irregular. Mitral isthmus was mapped. A broad range was noted between the left atrial appendage and the left-sided pulmonary veins. RF ablation was performed along this ridge. An RF ablation line of block was made in the mitral isthmus complete line of block was made. Later in sinus rhythm voltage mapping revealed complete scar. Non-capture was noted at high output along this line However with acing techniques and epicardial conduction was noted through this line The distance between the endocardium of the mitral isthmus and the coronary sinus was measured. The thickness of this area was about 1.3 cm Electrical cardioversion was performed to sinus rhythm The pacemaker was interrogated and reprogrammed to DDDR 60 to 130 bpm At the end of the procedure the patient was extubated Heparin was reversed Venous sheaths were removed and hemostasis assured PROCEDURES PERFORMED Diagnostic EP study CS pacing and recording Left and right transseptal catheterization 3D mapping Intracardiac echocardiography Pulmonary vein isolation with transseptal and comprehensive EPS, [id number] Left atrial roof line, +[id number] Linear ablation, left atrium septum, +[id number] Linear ablation left atrium, mitral isthmus, +[id number] Electrical cardioversion with a synchronized shock across the chest [id number] Dual-chamber pacemaker interrogation with reprogramming
--- NOTE | 2020-08-09 18:57 | P.PRLE ---
RE: Carlos Alberto Cuellar Dear Cameron Mr. Carlos Alberto Cuellar underwent A. fib ablation for persistent atrial fibrillation. He has a significantly enlarged left atrium and he underwent successful pulmona ry vein isolation and linear ablation. He was electrically cardioverted the end of the procedure He has now stopped amiodarone for the last 3 mon I asked him to continue xarelto and all his other medications unchanged He will follow with you and Dr. Meier as before Thank you for entrusting me with the care of the patient Warm regards Sincerely Eren Allen
--- NOTE | 2020-08-09 19:10 | P.EPPROC ---
- EP Procedure Note Electrophysiology Procedure Note: Diagnosis 100% RV pacing Dual-chamber pacemaker in situ, [employer] Procedure Left upper extremity venogram Indication for the procedure Patient is 100% paced in the right ventricle In the future consideration for upgrade to a biventricular system Details 15 mL IV dye injected in the left upper extremity Patent left axillary and left subclavian and innominate system
[2020-08-09 19:24] LABS: Glucose,Whole Blood 171 mg/dL (75-99)
[2020-08-09 20:40] LABS: Glucose,Whole Blood 188 mg/dL (75-99)
[2020-08-09] MEDS: PREGABALIN 75 MG CAP PO SCH (20:53)
[2020-08-09] MEDS: allopurinoL 100 MG TAB PO SCH (20:53)
[2020-08-09] MEDS: PANTOPRAZOLE 40 MG TABLET PO SCH (20:54)
[2020-08-09] MEDS ORDERED: RIVAROXABAN 20 MG TAB PO SCH (21:00)
[2020-08-09] MEDS ORDERED: lisinopriL 5 MG TAB PO SCH (21:00)
[2020-08-10] MEDS ORDERED: HYDROcodone/APAP 5-325MG 1 EACH TAB PO PRN (01:00)
[2020-08-10] MEDS ORDERED: ACETAMINOPHEN TAB 325 MG TAB PO PRN (01:00)
[2020-08-10 07:33] VITALS: BP 143/79; PULSE 63; RESP 16; TEMP 97.8
[2020-08-10 07:34] LABS: Glucose,Whole Blood 180 mg/dL (75-99)
--- NOTE | 2020-08-10 08:23 | DS ---
DISCHARGE SUMMARY Carlos Alberto Cuellar is a 69-year-old male patient who has persistent atrial fibrillation. He underwent atrial fibrillation ablation yesterday. Pulmonary vein isolation was performed followed by linear ablation of the left atrial roof, left atrial septum, along the posterior limbus of the fossa ovalis. When this part was completed, there was organization and slowing of atrial cycle length. However, then the mitral anulus was mapped and thereafter with mechanical stimulation, the atrial cycle length sped (shortening of atrial cycle). Complete mitral isthmus line was made. Endocardially voltage mapping showed complete endocardial ablation. This was confirmed with non capture along the RF line. However, he has an epicardial lead and with differential pacing and with pacing maneuvers, there was appeared to be a deeper source of conduction through the line. He was cardioverted after that. The integrity of the other lines was also checked and was confirmed to be adequate. Pulmonary veins were completely isolated. He had stopped amiodarone in May. Today he is doing well. No chest discomfort. A little bit of soreness in the throat. No breathing trouble. No dizziness. No lightheadedness. He is ambulating in the room. His groin has healed well. There is very mild puffiness in the groins. Suture is out. Blood pressure is 143/79 mmHg, pulse rate in the 60s. A 12-lead EKG shows AV sequential pacing. IMPRESSION: 1. Persistent symptomatic atrial fibrillation, status post atrial fibrillation ablation. 2. History of typical atrial flutter, status post ablation in 2016. 3. Hypertension. 4. Dyslipidemia. 5. Type 2 diabetes. The patient may go home. Amiodarone is being discontinued. He will continue metformin starting today. Adequate hydration was discussed and continuation of Xarelto and other cardiac medications and follow up with Dr. Meier. I also performed the left upper extremity venogram, which showed a patent left subclavian vein. He is 100% paced in the right ventricle, but the LV and RV function are normal on intracardiac echo. Mean left atrial pressure is mildly elevated. MMODL / IJN: [id number] /
[2020-08-10] MEDS ORDERED: ATORVASTATIN 80 MG TAB PO SCH (09:00)
[2020-08-10] MEDS: PREGABALIN 75 MG CAP PO SCH (09:47)
[2020-08-10] MEDS: allopurinoL 100 MG TAB PO SCH (09:47)
[2020-08-10] MEDS: PANTOPRAZOLE 40 MG TABLET PO SCH (09:47)
[2020-08-10 11:47] LABS: Glucose,Whole Blood 160 mg/dL (75-99)
[2020-08-11] MEDS ORDERED: metFORMIN 500 MG TAB PO SCH (21:00)
== END 2020-08-10 15:40 | disposition home or self-care (01) ==
LOC: CATHEP 06:23 → 6NMEDSUR 18:11 → CATHEP 08-10 15:40
PROVIDERS: ATTEND Internal Medicine Clinical Cardiac Electrophysiology
DX: I48.19 Other persistent atrial fibrillation (principal); I49.5 Sick sinus syndrome; I10 Essential (primary) hypertension; E78.2 Mixed hyperlipidemia; E11.9 Type 2 diabetes mellitus without complications; K21.9 Gastro-esophageal reflux disease without esophagitis; G47.30 Sleep apnea, unspecified; M10.9 Gout, unspecified; Z79.01 Long term (current) use of anticoagulants; Z98.890 Other specified postprocedural states; Z86.79 Personal history of other diseases of the circulatory system; Z95.0 Presence of cardiac pacemaker; Z79.84 Long term (current) use of oral hypoglycemic drugs; Z79.899 Other long term (current) drug therapy; Z79.51 Long term (current) use of inhaled steroids; Z88.0 Allergy status to penicillin; Z99.89 Dependence on other enabling machines and devices; Z96.651 Presence of right artificial knee joint; Z87.891 Personal history of nicotine dependence; Z82.49 Family history of ischemic heart disease and other diseases of the circulatory system; Z82.5 Family history of asthma and other chronic lower respiratory diseases
CPT/HCPCS: 85347; 92960; 93613; 93662; 93656; 93657; 84132; C1769 ×4; C1894 ×2; C1759; C1893; C1733; C1766; C1730; J2250; J2720; J1644 ×3; J2001; J3010; J0131; J2370; J0330; J2704; Q9967

== ENCOUNTER 2020-10-22 08:02 | Day surgery (SDC) | payer MEDICARE ==
[2020-10-19 08:59] VITALS: BMI 30.1
[~2020-10-22 08:02] MED LIST changes: -AMIODARONE 200 MG TAB PO SCH; -ATORVASTATIN 80 MG TAB PO SCH; -FUROSEMIDE 20 MG TAB PO SCH; -LACTATED RINGERS 1,000 ML IV SCH; -LIDOCAINE 1% INJ 10MG/ML (20 ML MDV) ONE; -NON FORMULARY DRUG (Cinnamon Bark [Cinnamon] 1,000 MG) PO SCH; -PANTOPRAZOLE 40 MG TABLET PO SCH; -PREGABALIN 75 MG CAP PO SCH; -PROPOFOL 10 MG/ML 20 ML VIAL IV ONE; -RIVAROXABAN 20 MG TAB PO SCH; -allopurinoL 100 MG TAB PO SCH; -lisinopriL 5 MG TAB PO SCH; -metFORMIN 500 MG TAB PO SCH
[2020-10-22] MEDS ORDERED: SODIUM CHLORIDE 0.9% 500 ML 500 ML IV ONE (08:08)
[2020-10-22 08:47] LABS: Glucose,Whole Blood 136 mg/dL (75-99)
[2020-10-22 08:52] VITALS: RESP 16; TEMP 98
[2020-10-22 09:14] LABS: Calcium 9.5 mg/dL (8.4-10.2); Potassium 4.6 mmol/L (3.5-5.1)
--- NOTE | 2020-10-22 11:05 | PN ---
PROGRESS NOTE Mr. Cuellar is a 69-year-old male who presented to undergo KHLOE guided cardioversion to restore sinus mechanism. On presentation, he appears to be in sinus mechanism with a paced rhythm. Hemodynamically, he is stable. He has no evidence of tachycardia or bradycardia. In view of that, he will be discharged home on his present medical regimen and followed in the office in 1 week. RAN / SHARMINN: [id number] /
[2020-10-22 14:00] VITALS: PULSE 60
[2020-10-22 14:02] VITALS: BP 148/79
== END 2020-10-22 11:12 | disposition home or self-care (01) ==
LOC: CATHCVL 08:02
PROVIDERS: ATTEND Internal Medicine Interventional Cardiology
DX: I48.19 Other persistent atrial fibrillation (principal); Z95.0 Presence of cardiac pacemaker; Z53.8 Procedure and treatment not carried out for other reasons; E78.2 Mixed hyperlipidemia; I10 Essential (primary) hypertension; Z20.822 Contact with and (suspected) exposure to COVID-19; E11.9 Type 2 diabetes mellitus without complications; Z82.49 Family history of ischemic heart disease and other diseases of the circulatory system; Z87.891 Personal history of nicotine dependence; Z79.01 Long term (current) use of anticoagulants; Z79.84 Long term (current) use of oral hypoglycemic drugs; Z79.899 Other long term (current) drug therapy; Z88.0 Allergy status to penicillin
CPT/HCPCS: 80048; 87635

== ENCOUNTER → 2020-12-27 | Outpatient (CLI) | payer MEDICARE ==
[2020-12-27 08:06] LABS: Anisocytosis Slight; HCT 38.2 % (39.0-53.0); HGB 12.5 gm/dL (13.0-17.5); Hypochromasia Slight; MCH 31.3 pg (25.0-35.0); MCHC 32.9 g/dL (31.0-37.0); MCV 95.1 fL (80.0-100.0); Mean Platelet Volume 8.2; Platelet Count 193 k/uL (150-450); RBC 4.01 m/uL (4.30-5.90); RDW 16.4 % (11.5-15.5); WBC 6.5 k/uL (3.8-10.6)
[2020-12-27 08:15] LABS: Potassium 4.9 mmol/L (3.5-5.1)
== END | disposition home or self-care (01) ==
LOC: LABPAT 07:04
PROVIDERS: ATTEND Internal Medicine Clinical Cardiac Electrophysiology
DX: Z01.812 Encounter for preprocedural laboratory examination (principal); I48.19 Other persistent atrial fibrillation
CPT/HCPCS: 80051; 82565; 84520; 85027

== ENCOUNTER 2021-01-07 13:02 | Day surgery (SDC) | payer MEDICARE ==
[2021-01-02 13:49] VITALS: BMI 31.7
[2021-01-07] MEDS ORDERED: SODIUM CHLORIDE 0.9% 1,000 ML IV ONE (13:49)
[2021-01-07] MEDS ORDERED: SODIUM CHLORIDE 0.9% 1,000 ML IV SCH (13:50)
[2021-01-07] MEDS ORDERED: LACTATED RINGERS 1,000 ML IV SCH (13:50)
[2021-01-07] MEDS ORDERED: CLINDAMYCIN 900 MG in DEXTROSE 5% IN WATER 50 ML IVPB STA ×2 (13:56)
[2021-01-07 14:06] LABS: Glucose,Whole Blood 112 mg/dL (75-99)
[2021-01-07] MEDS ORDERED: FUROSEMIDE 10 MG/ML 2 ML VIAL ONE (16:36)
[2021-01-07] MEDS ORDERED: PHENYLEPHRINE-0.9% NACL SYG 1,000 MCG/10 ML SYRINGE ONE (16:36)
[2021-01-07] MEDS ORDERED: SUCCINYLCHOLINE CHLORIDE 100 MG/5 ML SYR IV ONE (16:36)
[2021-01-07] MEDS ORDERED: PROPOFOL 10 MG/ML 20 ML VIAL IV ONE (16:36)
[2021-01-07] MEDS ORDERED: NEOSTIGMINE 1 MG/ML 10 ML VIAL ONE (16:36)
[2021-01-07] MEDS ORDERED: fentaNYL (PF) 50 MCG/ML 2 ML AMP ONE (16:36)
[2021-01-07] MEDS ORDERED: MIDAZOLAM 2 MG/2 ML VIAL ONE (16:36)
[2021-01-07] MEDS ORDERED: PROTAMINE SULFATE 10 MG/ML 5 ML VIAL IV ONE (16:36)
[2021-01-07] MEDS ORDERED: HEPARIN SODIUM,PORCINE 10,000 UNIT/ML 1 ML VIAL ONE (16:36)
[2021-01-07] MEDS ORDERED: ROCURONIUM 10 MG/ML (5 ML VIAL) IV ONE (16:36)
[2021-01-07] MEDS ORDERED: GLYCOPYRROLATE 0.2 MG/ML 2 ML VIAL ONE (16:36)
[2021-01-07] MEDS ORDERED: HEPARIN SOD,PORK IN 0.45% NACL 25,000 UNIT in 0.45% NACL 1 250ML.BAG IV ONE (16:50)
--- NOTE | 2021-01-07 16:50 | P.HPCAR ---
History of Present Illness This is Dr. Allen dictating an H/P on this patient The patient was interviewed and examined IMPRESSION / ASSESSMENT: Persistent atrial tachycardia with tiredness fatigue shortness of breath Pacemaker dependent, 100% RV paced Type 2 diabetes Hypertension Moderate MR and moderate tricuspid regurgitation History of smoking PLAN: Pacemaker interrogation and reprogramming pre-and postprocedure Mapping of the atrial tachycardia and ablation for atrial tachycardia/atrial fibrillation Subsequently upgrade to a biventricular pacemaker after reassessment of LV function Continue anticoagulation Check TSH HPI Patient complains of tiredness and fatigue and lack of energy Short of breath with very average exertion No syncope Remains on Xarelto 20 mg by mouth daily History of hypertension type 2 diabetes and dyslipidemia His ECG suggests atrial tachycardia with ventricular paced rhythm ROS: No fever chills or rigors, no cough, phlegm or expectoration, no nausea, vomiting or diarrhea, no hematuria, dysuria, no musculoskeletal complaints, no strokes or seizures, no skin lesions. EXAMINATION: Blood pressure 120/60 mmHg, respirations 12-14, also rate in the 60s and regular, afebrile Breath sounds are clear no rhonchi no crackles Heart sounds are regular No murmurs Abdomen soft nontender No lower extremity edema REVIEW OF LABS, ECG & MEDICAL DATA In May 2016 he underwent atrial flutter ablation In August 2020 he underwent pulmonary vein isolation with cryoablation with complete entrance block in all veins Linear ablation in the left atrial roof Linear ablation left atrial septum and the posterior limbus of the fossa ovalis Linear ablation mitral isthmus At that time he underwent electrical cardioversion for A. fib He is 100% paced in the right ventricle He has a patent left axillary and left subclavian and innominate venous system and has a [employer] dual-chamber pacemaker in situ His medications are reviewed and include diabetes medications xarelto Lasix atorvastatin lisinopril Physical Exam Vitals: Vital Signs Temp Pulse Resp BP Pulse Ox 01/07/21 14:10 98.1 F 68 16 128/69 97 Intake and Output 01/07/21 01/07/21 01/07/21 06:59 14:59 22:59 Intake Total 20 0 Balance 20 0 Intake: IV 20 0 Other: Weight 97.6 kg Past Medical History Past Medical History: Atrial Fibrillation, Diabetes Mellitus, GERD/Reflux, Hy perlipidemia, Sleep Apnea/CPAP/BIPAP Additional Past Medical History / Comment(s): GOUT, SEE DR ALLEN'S HISTORY AND PHYSICAL, C PAP MACHINE History of Any Multi-Drug Resistant Organisms: None Reported Past Surgical History: Cardiac Ablation, Joint Replacement, Pacemaker Additional Past Surgical History / Comment(s): RIGHT KNEE REPLACEMENT X2 Past Anesthesia/Blood Transfusion Reactions: No Reported Reaction Type of Cardiac Device: Permanent Pacemaker Device Placement Date:: 02-21-2013 Smoking Status: Former smoker - Past Family History Mother Family Medical History: No Reported History Father Family Medical History: Pneumonia Additional Family Medical History / Comment(s): "heart problems" Physical Examination Vital Signs Temp Pulse Resp BP Pulse Ox 01/07/21 14:10 98.1 F 68 16 128/69 97 Intake and Output 01/07/21 01/07/21 01/07/21 06:59 14:59 22:59 Intake Total 20 0 Balance 20 0 Intake: IV 20 0 Other: Weight 97.6 kg Results Current Medications Generic Name Dose Route Start Last Admin Trade Name Freq PRN Reason Stop Dose Admin Lactated Ringer's 1,000 mls @ 20 mls/hr 01/07/21 13:50 Lactated Ringers IV 02/06/21 13:51 .Q24H KORI Sodium Chloride 1,000 mls @ 20 mls/hr 01/07/21 13:50 Saline 0.9% IV 02/06/21 13:51 .Q24H KORI Intake and Output 01/07/21 01/07/21 01/07/21 06:59 14:59 22:59 Intake Total 20 0 Balance 20 0 Intake: IV 20 0 Other: Weight 97.6 kg Patient Weight 01/08/21 06:59 Weight 97.6 kg
[2021-01-07] MEDS ORDERED: LIDOCAINE 1% INJ 10MG/ML (20 ML MDV) ONE (16:57)
[2021-01-07] MEDS ORDERED: HEPARIN SODIUM (1,000 UNIT/ML) 1,000 UNIT in SODIUM CHLORIDE 0.9% 1,000 ML IRRIGATION ONE (17:23)
[2021-01-07] MEDS ORDERED: LACTATED RINGERS 1,000 ML IV ONE (20:17)
[2021-01-07] MEDS ORDERED: ACETAMINOPHEN TAB 325 MG TAB PO PRN (20:53)
[2021-01-07] MEDS ORDERED: ACETAMINOPHEN IV (For NPO) 1,000 MG in EMPTY BAG 1 BAG IVPB ONE (20:53)
[2021-01-07] MEDS ORDERED: HYDROcodone/APAP 5-325MG 1 EACH TAB PO PRN (20:53)
[2021-01-07] MEDS ORDERED: lisinopriL 5 MG TAB PO SCH (21:00)
--- NOTE | 2021-01-07 21:04 | P.EPPROC ---
- EP Procedure Note Electrophysiology Procedure Note: Extended Procedure This is a very long procedure involving mapping of the right atrium to evaluate for typical atrial flutter followed by mapping of the left atrium multiple times to evaluate for roof reentry, mitral reentry, focal arrhythmia in the roof and a focal arrhythmia in the anterior wall of the LAD This seemed to be a very small In the left atrial roof and and linea RF lesions applied. Next mapping was performed again and they seem to be a reentry, pivoting around this short line Repeat mapping was once again performed and mitral reentry was noted Mitral isthmus ablation was performed However termination did not occur and different anterior mitral line was made Subsequently the mapping was performed and a more focally based arrhythmia was noted in the anterior upper wall Ablation in the region of the longest P-wave duration along with fractionation resulted in termination of the tachycardia. This lesion was then connected to the previous RF lesions This is a very long procedure requiring numerous maps in the right and left atria delineate the multiple circuits in the focal arrhythmias this patient had The patient from the procedure well without any acute complications no pericardial effusion no effusion around the aorta or the left atrial anterior wall was noted the end of the procedure
[2021-01-07 21:12] LABS: Glucose,Whole Blood 104 mg/dL (75-99)
[2021-01-07] MEDS: PREGABALIN 100 MG CAP PO SCH (22:53)
[2021-01-07] MEDS: metFORMIN 500 MG TAB PO SCH (22:53)
[2021-01-07] MEDS: RIVAROXABAN 20 MG TAB PO SCH (22:53)
[2021-01-07] MEDS: COLCHICINE 0.6 MG EACH PO SCH (22:54)
[2021-01-07 22:56] LABS: Glucose,Whole Blood 121 mg/dL (75-99)
[2021-01-08 01:18] VITALS: RESP 18
[2021-01-08] MEDS ORDERED: PANTOPRAZOLE 40 MG TABLET PO SCH (07:30)
[2021-01-08] MEDS: PREGABALIN 100 MG CAP PO SCH (07:52)
[2021-01-08] MEDS: COLCHICINE 0.6 MG EACH PO SCH (07:52)
[2021-01-08] MEDS: metFORMIN 500 MG TAB PO SCH (07:52)
[2021-01-08] MEDS: RIVAROXABAN 20 MG TAB PO SCH (07:52)
[2021-01-08 07:53] LABS: Glucose,Whole Blood 166 mg/dL (75-99)
[2021-01-08 08:39] VITALS: BP 110/70
[2021-01-08] MEDS ORDERED: FUROSEMIDE 20 MG TAB PO SCH (09:00)
[2021-01-08] MEDS ORDERED: ATORVASTATIN 80 MG TAB PO SCH (09:00)
[2021-01-08 12:06] LABS: Glucose,Whole Blood 142 mg/dL (75-99)
[2021-01-08 14:27] VITALS: PULSE 68; TEMP 98.6
--- NOTE | 2021-01-09 11:18 | P.DS ---
Providers Attending physician: Eren Allen Primary care physician: [facility] Course: Patient presented to the hospital for outpatient RFA. He tolerated the procedure well with no acute complications noted. Blood pressure 110/70 heart rate 68 afebrile maintaining oxygen saturation on room air. Bilateral femoral access sites soft, nontender with no evidence of hematoma, bleeding or ecchymosis. GENERAL: Well-appearing, well-nourished and in no acute distress. NECK: Supple without JVD or thyromegaly. LUNGS: Breath sounds clear to auscultation bilaterally. Respiration equal and unlabored. No wheezes, rales or rhonchi. HEART: Regular rate and rhythm without murmurs, rubs or gallops. S1 and S2 heard. EXTREMITIES: Normal range of motion, no edema. No clubbing or cyanosis. Peripheral pulses intact. ASSESSMENT Persistent atrial tachycardia Diabetes mellitus Hypertension Valvular heart disease Status post permanent pacemaker implantation PLAN Stable for discharge from a cardiac perspective. Follow-up with Dr. Meier in the office next week. Add colchicine 0.6 mg daily 1 week. Nurse Practitioner note has been reviewed, I agree with a documented findings and plan of care. Patient was seen and examined. Patient Condition at Discharge: Stable Plan - Discharge Summary New Discharge Prescriptions: New Colchicine [Colcrys] 0.6 mg PO DAILY #7 each Continue lisinopriL [Zestril] 5 mg PO HS Atorvastatin [Lipitor] 80 mg PO DAILY allopurinoL [Zyloprim] 100 mg PO BID metFORMIN HCL [Glucophage] 500 mg PO BID Cinnamon Bark [Cinnamon] 1,000 mg PO BID Omeprazole [PriLOSEC] 20 mg PO DAILY Furosemide [Lasix] 20 mg PO QAM Rivaroxaban [Xarelto] 20 mg PO QAM Pregabalin [Lyrica] 100 mg PO BID Discharge Medication List Atorvastatin [Lipitor] 80 mg PO DAILY 03/31/14 [History] allopurinoL [Zyloprim] 100 mg PO BID 03/31/14 [History] lisinopriL [Zestril] 5 mg PO HS 03/31/14 [History] Cinnamon Bark [Cinnamon] 1,000 mg PO BID 01/22/16 [History] Furosemide [Lasix] 20 mg PO QAM 01/22/16 [History] Omeprazole [PriLOSEC] 20 mg PO DAILY 01/22/16 [History] metFORMIN HCL [Glucophage] 500 mg PO BID 01/22/16 [History] Rivaroxaban [Xarelto] 20 mg PO QAM 05/06/16 [History] Pregabalin [Lyrica] 100 mg PO BID 01/02/21 [History] Colchicine [Colcrys] 0.6 mg PO DAILY #7 each 01/08/21 [Rx] Follow up Appointment(s)/Referral(s): Niya Meier MD [STAFF PHYSICIAN] - 01/15/21 3:00 pm Patient Instructions/Handouts: Cardiac Ablation (DC), Type 2 Diabetes Management for Adults (DC) Activity/Diet/Wound Care/Special Instructions: Post EP study ablation instructions Keep access site dry for 2 days No heavy lifting/straining for 2 days Avoid bending at hips repeatedly for 2 days May go up and down stairs slowly Call if: Bleeding or increased swelling or pain at access site Increased chest discomfort especially with deep breathing Increase shortness of breath at rest or with exertion Undue cough/phlegm Difficulty or pain while swallowing Pain or change of color in extremity Fever, chills, rigor Increased headache or neurological symptoms Discharge Disposition: HOME SELF-CARE
--- NOTE | 2021-01-09 11:57 | P.EPPROC ---
- EP Procedure Note Electrophysiology Procedure Note: Diagnosis Persistent atrial tachycardia Symptoms of tiredness fatigue shortness of breath Refractory to therapy Details Patient was brought to the EP lab in a fasting state. Written informed consent was obtained prior to the procedure. General anesthesia given. IV antibiotics given Device reprogrammed prior to the procedure Venous access obtained Diagnostic mapping and ablation cath is in intracardiac echo catheter placed The twelve-lead EKG showed upright T waves in lead V1 Split P waves in the inferior leads Tachycardia cycle length 300-310 ms Concentric activation in the coronary sinus poles Intracardiac echo performed No left atrial appendage thrombus No pericardial effusion RA and LA mapping Aortic root mapping In 2017 patient had a typical atrial flutter ablation Right atrial mapping performed, voltage mapping of the caval tricuspid isthmus Entrainment mapping from the chemo tricuspid isthmus Long PPI Left and right transseptal catheterization performed RA pressure 18/0/11 LA pressure 28/6/17 3-D electro-anatomic mapping of the left atrium performed Voltage mapping performed Activation mapping performed and this suggested a roof reentry A very subtle In the left atrial roof, mid roof noted RF ablation performed here No change in tachycardia cycle length 3 mapping of the left atrium This time it appeared that there was reentry around the mitral isthmus Entrainment mapping performed from the proximal coronary sinus and the distal coronary sinus and the PPI was 330 milliseconds Would rewrapping of the mitral isthmus performed In the mitral isthmus noted RF ablation performed in the mitral isthmus Minimal prolongation of the tachycardia cycle length by about 10 ms only without termination Repeat 3-D electro-anatomic mapping The anterior wall appeared to be involved with early meats late activation him RF ablation performed anteriorly from the roof down to the mitral annulus but tachycardia did not terminate Repeat activation mapping revealed early activation in a broad area in the anterior wall This area was further investigated and a very broad area of electrograms was noted with slow conduction in the anterior upper wall of the LAD that was fairly close to the roof line and fairly close to the reentrant circuit of the mitral annulus circuit RF ablation here resulted in slowing of the tachycardia followed by termination of the tachycardia Bonus lesions applied here and this was then connected to the roof line CATHETERS were then removed after confirming absence of any pericardial effusion on intracardiac echo Procedures performed Diagnostic EP study CS pacing and recording 3-D mapping Intracardiac echo Left and right transseptal catheterization Pacemaker interrogation with reprogramming before and after the procedure Ablation a focal atrial tachycardia anterior wall LA Linear ablation left atrial roof for reentry Linear ablation for mitral isthmus reentry Extended procedure
== END 2021-01-08 17:00 | disposition home or self-care (01) ==
LOC: CATHEP 13:02 → 6NMEDSUR 18:55 → CATHEP 01-08 17:00
PROVIDERS: ATTEND Internal Medicine Clinical Cardiac Electrophysiology
DX: I47.1 Supraventricular tachycardia (principal); Z95.0 Presence of cardiac pacemaker; E11.9 Type 2 diabetes mellitus without complications; I10 Essential (primary) hypertension; I34.0 Nonrheumatic mitral (valve) insufficiency; Z87.891 Personal history of nicotine dependence; E78.5 Hyperlipidemia, unspecified; Z79.01 Long term (current) use of anticoagulants; Z88.0 Allergy status to penicillin; G47.33 Obstructive sleep apnea (adult) (pediatric); I48.91 Unspecified atrial fibrillation; K21.9 Gastro-esophageal reflux disease without esophagitis; Z79.899 Other long term (current) drug therapy
CPT/HCPCS: 93662; 93613; 93653; 93655; C1769 ×4; C1894; C1760; C1730; C1731; C1759; C1893; C1732; J2001; J1644 ×2

== ENCOUNTER 2021-01-10 12:25 | Emergency (ER) | payer MEDICARE ==
[2021-01-10 12:35] VITALS: RESP 18; TEMP 98.3
--- NOTE | 2021-01-10 13:35 | ED ---
General Adult HPI - General Chief complaint: Recheck/Abnormal Lab/Rx Stated complaint: coughing up blood Time Seen by Provider: 01/10/21 12:30 Source: patient, RN notes reviewed, old records reviewed Mode of arrival: ambulatory Limitations: no limitations - History of Present Illness Initial comments: This is a 70-year-old male who presents emergency Department with a past medical history significant for atrial fibrillation. Patient states he had ablation on Thursday and yesterday he had some bleeding and again little bit of bleeding today so it was very minimal. Patient denies any vomiting. Patient states it was from a little bit of clearing his throat. Patient denies any chest pain difficulty breathing or shortness of breath. Patient denies any palpitations. Patient denies any back pain. Patient denies any recent fever chills or cough. Patient denies abdominal pain patient denies nausea vomiting diarrhea. Patient currently is asymptomatic. - Related Data Home Medications Medication Instructions Recorded Confirmed Atorvastatin [Lipitor] 80 mg PO DAILY 03/31/14 01/10/21 allopurinoL [Zyloprim] 100 mg PO BID 03/31/14 01/10/21 lisinopriL [Zestril] 5 mg PO HS 03/31/14 01/10/21 Cinnamon Bark [Cinnamon] 1,000 mg PO BID 01/22/16 01/10/21 Furosemide [Lasix] 20 mg PO DAILY 01/22/16 01/10/21 metFORMIN HCL [Glucophage] 500 mg PO BID 01/22/16 01/10/21 Rivaroxaban [Xarelto] 20 mg PO DAILY 05/06/16 01/10/21 Pregabalin [Lyrica] 100 mg PO BID 01/02/21 01/10/21 Omeprazole Magnesium [PriLOSEC OTC] 20 mg PO DAILY 01/10/21 01/10/21 Previous Rx's Medication Instructions Recorded Colchicine [Colcrys] 0.6 mg PO DAILY #7 each 01/08/21 Allergies Allergy/AdvReac Type Severity Reaction Status Date / Time Penicillins Allergy Rash/Hives Verified 01/10/21 14:21 Review of Systems ROS Statement: Those systems with pertinent positive or pertinent negative responses have been documented in the HPI. ROS Other: All systems not noted in ROS Statement are negative. Past Medical History Past Medical History: Atrial Fibrillation, Diabetes Mellitus, GERD/Reflux, Hyperlipidemia, Sleep Apnea/CPAP/BIPAP Additional Past Medical History / Comment(s): GOUT, SEE DR ALLEN'S HISTORY AND PHYSICAL, C PAP MACHINE History of Any Multi-Drug Resistant Organisms: None Reported Past Surgical History: Cardiac Ablation, Joint Replacement, Pacemaker Additional Past Surgical History / Comment(s): RIGHT KNEE REPLACEMENT X2 Past Anesthesia/Blood Transfusion Reactions: No Reported Reaction Type of Cardiac Device: Permanent Pacemaker Device Placement Date:: 02-21-2013 Past Psychological History: No Psychological Hx Reported Smoking Status: Former smoker Past Alcohol Use History: Occasional Past Drug Use History: None Reported - Past Family History Mother Family Medical History: No Reported History Father Family Medical History: Pneumonia Additional Family Medical History / Comment(s): "heart problems" General Exam - General Exam Comments Initial Comments: GENERAL: Patient is well-developed and well-nourished. Patient is nontoxic and well- hydrated and is in no acute distress. ENT: Neck is soft and supple. No significant lymphadenopathy is noted. Oropharynx is clear. Moist mucous membranes. Neck has full range of motion without eliciting any pain. EYES: The sclera were anicteric and conjunctiva were pink and moist. Extraocular movements were intact and pupils were equal round and reactive to light. Eyelids were unremarkable. PULMONARY: Unlabored respirations. Good breath sounds bilaterally. No audible rales rhonchi or wheezing was noted. CARDIOVASCULAR: There is a regular rate and rhythm without any murmurs gallops or rubs. ABDOMEN: Soft and nontender with normal bowel sounds. SKIN: Skin is clear with no lesions or rashes and otherwise unremarkable. NEUROLOGIC: Patient is alert and oriented x3. Cranial nerves II through XII are grossly intact. Motor and sensory are also intact. Normal speech, volume and content. Symmetrical smile. MUSCULOSKELETAL: Normal extremities with adequate strength and full range of motion. No lower extremity swelling or edema. No calf tenderness. LYMPHATICS: No significant lymphadenopathy is noted PSYCHIATRIC: Normal psychiatric evaluation. Limitations: no limitations Course Vital Signs 01/10/21 12:29 Temperature 98.3 F Pulse Rate 78 Respiratory 18 Rate Blood Pressure 126/67 O2 Sat by Pulse 94 L Oximetry Medical Decision Making - Medical Decision Making EKG shows a paced rhythm at 82 bpm SD interval 184 QRS is 174 Q-T intervals [address] did not show a PE and it did not show any fistula between the atrium in the esophagus. I spoke with Dr. Allen about the lab results and the CAT scan results and he indicated the patient could go home and follow-up as an outpatient. - Lab Data Result diagrams: 01/10/21 13:36 01/10/21 13:36 Lab Results 01/10/21 01/10/21 01/10/21 Range/Units 13:36 13:36 13:36 WBC 9.1 (3.8-10.6) k/uL RBC 3.65 L (4.30-5.90) m/uL Hgb 11.7 L (13.0-17.5) gm/dL Hct 34.2 L (39.0-53.0) % MCV 93.7 (80.0-100.0) fL MCH 32.1 (25.0-35.0) pg MCHC 34.3 (31.0-37.0) g/dL RDW 15.9 H (11.5-15.5) % Plt Count 199 (150-450) k/uL MPV 8.2 Neutrophils % 72 % Lymphocytes % 13 % Monocytes % 9 % Eosinophils % 3 % Basophils % 0 % Neutrophils # 6.6 (1.3-7.7) k/uL Lymphocytes # 1.2 (1.0-4.8) k/uL Monocytes # 0.8 (0-1.0) k/uL Eosinophils # 0.3 (0-0.7) k/uL Basophils # 0.0 (0-0.2) k/uL Sodium 140 (137-145) mmol/L Potassium 4.0 (3.5-5.1) mmol/L Chloride 105 (98-107) mmol/L Carbon Dioxide 24 (22-30) mmol/L Anion Gap 11 mmol/L BUN 16 (9-20) mg/dL Creatinine 0.92 (0.66-1.25) mg/dL Est GFR (CKD-EPI)AfAm >90 (>60 ml/min/1.73 sqM) Est GFR (CKD-EPI)NonAf 83 (>60 ml/min/1.73 sqM) Glucose 146 H (74-99) mg/dL Calcium 8.9 (8.4-10.2) mg/dL Magnesium 1.7 (1.6-2.3) mg/dL Total Bilirubin 0.6 (0.2-1.3) mg/dL AST 34 (17-59) U/L ALT 24 (4-49) U/L Alkaline Phosphatase 88 (38-126) U/L Troponin I 0.150 H* (0.000-0.034) ng/mL Total Protein 7.4 (6.3-8.2) g/dL Albumin 4.3 (3.5-5.0) g/dL Disposition Clinical Impression: Hemoptysis Disposition: HOME SELF-CARE Condition: Good Instructions (If sedation given, give patient instructions): Hemoptysis (ED) Is patient prescribed a controlled substance at d/c from ED?: No Referrals: Cameron Chandler MD [Primary Care Provider] - 1-2 days Time of Disposition: 15:01
[2021-01-10 13:52] LABS: Basophils % (A) 0 %; Eosinophils # (A) 0.3 k/uL (0-0.7); Eosinophils % (A) 3 %; HCT 34.2 % (39.0-53.0); HGB 11.7 gm/dL (13.0-17.5); Lymphocytes # (A) 1.2 k/uL (1.0-4.8); Lymphocytes % (A) 13 %; MCH 32.1 pg (25.0-35.0); MCHC 34.3 g/dL (31.0-37.0); MCV 93.7 fL (80.0-100.0); Mean Platelet Volume 8.2; Monocytes # (A) 0.8 k/uL (0-1.0); Monocytes % (A) 9 %; Neutrophils # (A) 6.6 k/uL (1.3-7.7); Neutrophils % (A) 72 %; Platelet Count 199 k/uL (150-450); RBC 3.65 m/uL (4.30-5.90); RDW 15.9 % (11.5-15.5); WBC 9.1 k/uL (3.8-10.6)
[2021-01-10 14:00] LABS: ALT 24 U/L (4-49); AST 34 U/L (17-59); African American GFR (CKD) >90 (>60 ml/min/1.73 sqM); Albumin 4.3 g/dL (3.5-5.0); Alkaline Phosphatase 88 U/L (38-126); Anion Gap 11 mmol/L; Blood Urea Nitrogen 16 mg/dL (9-20); Calcium 8.9 mg/dL (8.4-10.2); Carbon Dioxide 24 mmol/L (22-30); Chloride 105 mmol/L (98-107); Glucose 146 mg/dL (74-99); Magnesium 1.7 mg/dL (1.6-2.3); Non-African American GFR(CKD) 83 (>60 ml/min/1.73 sqM); Sodium 140 mmol/L (137-145); Total Bilirubin 0.6 mg/dL (0.2-1.3); Total Protein 7.4 g/dL (6.3-8.2)
--- NOTE | 2021-01-10 14:29 | CT ---
EXAMINATION TYPE: CT chest angio for PE DATE OF EXAM: 01/10/2021 COMPARISON: Chest x-ray September 18, 2011 HISTORY: hemoptysis, CT DLP: 554.8 mGycm. Automated Exposure Control for Dose Reduction was Utilized. CONTRAST: CTA scan of the thorax is performed with IV Contrast, patient injected with 100 mL of Isovue 370, pul monary embolism protocol. MIP Images are created on CT scanner and reviewed. FINDINGS: LUNGS: Respiratory motion artifact and correlation is seen making evaluation suboptimal particularly for subcentimeter nodules. Overall mosaic attenuation. No suspicious focal consolidation. No pleural effusion or pneumothorax. Suspicious masses. MEDIASTINUM: There is satisfactory enhancement of the pulmonary artery and its branches, there is no CT evidence for pulmonary embolism. There are no greater than 1 cm hilar or mediastinal lymph nodes mild cardiomegaly. No pericardial effusion is seen. Dual-lead pacemaker noted. Coronary artery calcif ication is present which is noted marker for underlying coronary artery disease. Moderate right atria l dilatation. Satisfactory enhancement of the aorta without aneurysm or dissection. Bovine type arch which is normal variant. OTHER: Some reflux of contrast into the suprahepatic IVC and hepatic veins suggests degree of right h eart failure. IMPRESSION: No CT evidence for acute pulmonary embolism . Mild cardiomegaly with mosaic attenuation s uggesting mild alveolar and interstitial edema. Correlate for CHF exacerbation.
[2021-01-10 15:08] VITALS: BP 119/84; PULSE 64
[2021-01-10 15:08] LABS: INR 1.1 (<1.2); Partial Thromboplastin Time 29.6 sec (22.0-30.0); Prothrombin Time 11.8 sec (9.0-12.0)
== END 2021-01-10 15:13 | disposition home or self-care (01) ==
LOC: EC 12:25
DX: R04.2 Hemoptysis (principal); E11.9 Type 2 diabetes mellitus without complications; E78.5 Hyperlipidemia, unspecified; I48.91 Unspecified atrial fibrillation; I51.7 Cardiomegaly; K21.9 Gastro-esophageal reflux disease without esophagitis; M10.9 Gout, unspecified; Z79.84 Long term (current) use of oral hypoglycemic drugs; Z79.899 Other long term (current) drug therapy; Z87.891 Personal history of nicotine dependence; Z88.0 Allergy status to penicillin; Z95.0 Presence of cardiac pacemaker
CPT/HCPCS: 36415; 93005; 85379; 80053; 83735; 84484; 85025; 85610; 85730; 71275; 99284; Q9967

== ENCOUNTER → 2021-06-21 | Outpatient (CLI) | payer MEDICARE ==
[2021-06-21 14:31] LABS: HCT 38.1 % (39.6-50.0); MCH 28.9 pg (27.0-32.0); MCHC 31.5 g/dL (32.0-37.0); MCV 91.8 fL (80.0-97.0); Mean Platelet Volume 11.3 fL (9.5-12.2); NRBC Per 100 WBC 0 /100 WBCS (0.0-0.0); Platelet Count 207 X 10*3/uL (140-440); RBC 4.15 X 10*6/uL (4.40-5.60); WBC 6.84 X 10*3/uL (4.50-10.00)
[2021-06-21 14:43] LABS: African American GFR (CKD) 80.9 (60.0-200.0); Anion Gap 10.3 mmol/L (10.00-18.00); Blood Urea Nitrogen 17.5 mg/dL (9.0-27.0); Carbon Dioxide 23.7 mmol/L (20.0-27.5); Non-African American GFR(CKD) 69.8 (60.0-200.0)
[2021-06-23 11:23] LABS: Coronavirus SARS CoV-2 Not Detected (Not Detected)
== END | disposition home or self-care (01) ==
LOC: LABPAT 08:44
PROVIDERS: ATTEND Internal Medicine Clinical Cardiac Electrophysiology
DX: Z01.812 Encounter for preprocedural laboratory examination (principal); I47.1 Supraventricular tachycardia
CPT/HCPCS: 80051; 82565; 84520; 85027; 36415; U0003; C9803

== ENCOUNTER 2021-07-02 08:35 | Day surgery (SDC) | payer MEDICARE ==
[2021-06-28 12:46] VITALS: BMI 29.9
[2021-07-02 09:30] LABS: Glucose,Whole Blood 127 mg/dL (75-99)
[2021-07-02] MEDS ORDERED: LIDOCAINE 1% INJ 10MG/ML (20 ML MDV) ONE ×3 (10:03→17:36)
[2021-07-02] MEDS ORDERED: ePHEDrine 50 MG/ML 1 ML VIAL ONE (10:15)
[2021-07-02] MEDS ORDERED: ISOPROTERENOL 250 MCG/1.25 ML SYR IV ONE ×2 (10:15)
[2021-07-02] MEDS ORDERED: ROCURONIUM 10 MG/ML (5 ML VIAL) IV ONE ×2 (10:15→17:36)
[2021-07-02] MEDS ORDERED: PHENYLEPHRINE-0.9% NACL SYG 1,000 MCG/10 ML SYRINGE ONE ×2 (10:15→17:36)
[2021-07-02] MEDS ORDERED: PROPOFOL 10 MG/ML 20 ML VIAL IV ONE ×2 (10:15→17:36)
[2021-07-02] MEDS ORDERED: FUROSEMIDE 10 MG/ML 2 ML VIAL ONE (10:15)
[2021-07-02] MEDS ORDERED: MIDAZOLAM 2 MG/2 ML VIAL ONE ×2 (10:15→17:36)
[2021-07-02] MEDS ORDERED: fentaNYL (PF) 50 MCG/ML 2 ML AMP ONE ×2 (10:15→17:36)
[2021-07-02] MEDS ORDERED: SUCCINYLCHOLINE CHLORIDE 100 MG/5 ML SYR IV ONE ×2 (10:15→17:36)
[2021-07-02] MEDS ORDERED: GLYCOPYRROLATE 0.2 MG/ML 2 ML VIAL ONE ×2 (10:15→17:36)
[2021-07-02] MEDS ORDERED: HYDROmorphone (PF) 1 MG/ML ONE (10:15)
[2021-07-02] MEDS ORDERED: NEOSTIGMINE 1 MG/ML 10 ML VIAL ONE ×2 (10:15→17:36)
[2021-07-02] MEDS ORDERED: HEPARIN SODIUM,PORCINE 10,000 UNIT/ML 1 ML VIAL ONE (10:15)
[2021-07-02] MEDS ORDERED: CLINDAMYCIN 600 MG in DEXTROSE 5% IN WATER 50 ML IVPB STA ×2 (10:40)
[2021-07-02] MEDS ORDERED: HEPARIN SODIUM (1,000 UNIT/ML) 1,000 UNIT in SODIUM CHLORIDE 0.9% 1,000 ML IRRIGATION ONE ×2 (10:44→16:19)
[2021-07-02] MEDS ORDERED: HEPARIN SOD,PORK IN 0.45% NACL 25,000 UNIT in 0.45% NACL 1 250ML.BAG IV ONE (11:12)
[2021-07-02] MEDS ORDERED: LIDOCAINE 1% INJ 10MG/ML (20 ML MDV) SQ ONE (11:14)
[2021-07-02] MEDS ORDERED: LACTATED RINGERS 1,000 ML IV ONE (13:56)
[2021-07-02 15:42] LABS: Glucose,Whole Blood 117 mg/dL (75-99)
[2021-07-02] MEDS ORDERED: ACETAMINOPHEN TAB 325 MG TAB PO PRN (17:33)
--- NOTE | 2021-07-02 18:00 | P.EPPROC ---
- EP Procedure Note Electrophysiology Procedure Note: Diagnosis Recurrent paroxysmal atrial tachycardia documented on pacemaker interrogation, 15% A. tach burden Patient very symptomatically during these episodes Prior history of atrial flutter ablation Prior history of pulmonary vein isolation, roof ablation linear anterior wall ablation and focal atrial tachycardia on the anterior wall Details Patient was brought to the EP lab in a fasting state. Written informed consent was obtained prior to the procedure. Procedure was performed under general anesthesia He is a dual-chamber pacemaker, [employer]. This was interrogated. Lead impedances are documented Pacemaker was reprogrammed to DDD mode, rate responsiveness turned off, AV delay length and At the end of the procedure the pacemaker was reprogrammed with rate-responsive tests and normal AV delay Lead impedances were stable. Both leads Fluoroscopy of the leads did not show any change during and after the procedure Venous sheaths were placed in the right left femoral veins. These were later closed with Perclose and Vascade with good hemostasis Short and long sheaths were placed Diagnostic catheters were positioned in the right atrium and the left atrium and the coronary sinus Pentaray catheter was placed in the left atrium after transseptal catheteriz ation. Irrigated tip ablation cath was placed in the right and left atrium Multiple 3-D electro-anatomic maps performed for mapping of atrial tachycardias Voltage mapping performed for the left and right atria First previous flutter line was interrogated While split potentials were noted along the line, split of about 130 ms Intracardiac echocardiography was performed to assess the anatomy of the cavo tricuspid isthmus Voltage map revealed more normal voltages In the pouch. Patient had a V-shaped isthmus RF ablation was performed in the mid isthmus successfully Following this left and right transseptal catheterization was performed Intracardiac echo was performed No thrombus in the left atrial appendage No pericardial effusion Diagnoses the study is performed Burst stimulation in the coronary sinus Atrial tachycardias were induced with a short cycle length induced First atrial tachycardia at about 230-to 40 ms Voltage mapping and activation mapping showed that the earliest sign of activation was in the anterior wall medial to the left atrial appendage Successful RF ablation was performed Following that repeat EP study is performed with burst stimulation A new atrial tachycardia was induced, cycle length 200 ms Repeat left atrial mapping was performed This was mapped to the posterior wall outside the karla of the left-sided veins, outside the PVI line The patient had a left-sided esophagus An OG tube was placed in the esophagus. Barium esophagram was performed An endoscope was placed in the esophagus and it was displaced greater than 1 cm away from the proposed RF site RF ablation was applied and successful termination of the arrhythmia was noted A complete RF line was made along the posterior margin, outside the previous PVI Burst stimulation was once again performed nonsustained very brief atrial arrhythmias were noted this time No sustained arrhythmias High-dose Isuprel was used no other arrhythmias were induced Or sheaths were removed. Hemostasis achieved Pacemaker reprogrammed At the end of the procedure barium esophagram revealed absence of any ulcers or injury to the esophagus This were then suctioned out under fluoroscopy
--- NOTE | 2021-07-02 18:03 | P.PCN ---
Preoperative Diagnosis: Extended procedure Procedure lasted greater than 5-6 hours Multiple tachycardias induced both sustained and nonsustained Multiple maps were made Tachycardias repeatedly induced Repeated activation maps and voltage vitals were made for the right and left atria to identify the focus of the tachycardias Esophageal deflection with barium esophagraphy performed to safeguard the esophagus Patient got to the procedure well without any acute complications
[2021-07-02] MEDS: ACETAMINOPHEN IV (For NPO) 1,000 MG in EMPTY BAG 1 BAG IVPB ONE ×2 (18:20→18:35)
[2021-07-02] MEDS ORDERED: lisinopriL 5 MG TAB PO SCH (21:00)
[2021-07-02] MEDS: PREGABALIN 100 MG CAP PO SCH (21:19)
[2021-07-02] MEDS: allopurinoL 100 MG TAB PO SCH (21:20)
[2021-07-02 21:23] LABS: Glucose,Whole Blood 137 mg/dL (75-99)
[2021-07-03 06:50] LABS: Glucose,Whole Blood 120 mg/dL (75-99)
[2021-07-03] MEDS ORDERED: metFORMIN 500 MG TAB PO SCH (07:30)
[2021-07-03] MEDS ORDERED: PANTOPRAZOLE 40 MG TABLET PO SCH (07:30)
[2021-07-03] MEDS: allopurinoL 100 MG TAB PO SCH (07:56)
[2021-07-03] MEDS: PREGABALIN 100 MG CAP PO SCH (07:57)
[2021-07-03] MEDS ORDERED: COLCHICINE 0.6 MG EACH PO SCH (09:00)
[2021-07-03] MEDS ORDERED: ATORVASTATIN 80 MG TAB PO SCH (09:00)
[2021-07-03] MEDS ORDERED: FUROSEMIDE 20 MG TAB PO SCH (09:00)
[2021-07-03] MEDS ORDERED: RIVAROXABAN 20 MG TAB PO SCH (09:00)
[2021-07-03 11:49] LABS: Glucose,Whole Blood 83 mg/dL (75-99)
[2021-07-03 13:42] LABS: Glucose,Whole Blood 96 mg/dL (75-99)
[2021-07-03 15:25] VITALS: BP 125/72; PULSE 65; RESP 14; TEMP 97.5
--- NOTE | 2021-07-04 07:59 | P.DS ---
Providers Attending physician: Eren Allen Primary care physician: [facility] Course: Patient is doing well No chest discomfort no shortness of breath no dizziness lightheadedness Groins of healed well no hematoma Heart sounds are normal Breath sounds are clear No JVD Abdomen soft Extremities warm Impression Atrial tachycardia ablation, multiple sites Successful termination History of atrial fibrillation and A. fib ablation in the past 100% RV pacing Plan Discharge home today Continue anticoagulation Elective upgrade to an LV lead in the next 2-3 months Follow-up in the office of Dr. Meier in a week Plan - Discharge Summary Discharge Rx Participant: No New Discharge Prescriptions: No Action lisinopriL [Zestril] 5 mg PO HS Atorvastatin [Lipitor] 80 mg PO DAILY allopurinoL [Zyloprim] 100 mg PO BID metFORMIN HCL [Glucophage] 500 mg PO BID Cinnamon Bark [Cinnamon] 1,000 mg PO BID Furosemide [Lasix] 20 mg PO DAILY Rivaroxaban [Xarelto] 20 mg PO DAILY Pregabalin [Lyrica] 100 mg PO BID Colchicine [Colcrys] 0.6 mg PO DAILY #7 each Omeprazole Magnesium [PriLOSEC OTC] 20 mg PO DAILY Discharge Medication List Atorvastatin [Lipitor] 80 mg PO DAILY 03/31/14 [History] allopurinoL [Zyloprim] 100 mg PO BID 03/31/14 [History] lisinopriL [Zestril] 5 mg PO HS 03/31/14 [History] Cinnamon Bark [Cinnamon] 1,000 mg PO BID 01/22/16 [History] Furosemide [Lasix] 20 mg PO DAILY 01/22/16 [History] metFORMIN HCL [Glucophage] 500 mg PO BID 01/22/16 [History] Rivaroxaban [Xarelto] 20 mg PO DAILY 05/06/16 [History] Pregabalin [Lyrica] 100 mg PO BID 01/02/21 [History] Colchicine [Colcrys] 0.6 mg PO DAILY #7 each 01/08/21 [Rx] Omeprazole Magnesium [PriLOSEC OTC] 20 mg PO DAILY 01/10/21 [History] Follow up Appointment(s)/Referral(s): Eren Allen MD [STAFF PHYSICIAN] - 07/10/21 10:45 am (appointment made with Brea at main office ) Patient Instructions/Handouts: Cardiac Ablation (DC) Discharge Disposition: HOME SELF-CARE
== END 2021-07-03 15:26 | disposition home or self-care (01) ==
LOC: CATHEP 08:35 → 6NMEDSUR 17:19 → CATHEP 07-03 15:26
PROVIDERS: ATTEND Internal Medicine Clinical Cardiac Electrophysiology
DX: I47.1 Supraventricular tachycardia (principal); I48.19 Other persistent atrial fibrillation; I10 Essential (primary) hypertension; E11.9 Type 2 diabetes mellitus without complications; E78.2 Mixed hyperlipidemia; Z72.0 Tobacco use; Z20.822 Contact with and (suspected) exposure to COVID-19; M19.90 Unspecified osteoarthritis, unspecified site; E78.00 Pure hypercholesterolemia, unspecified; G47.30 Sleep apnea, unspecified; R56.9 Unspecified convulsions; Z87.891 Personal history of nicotine dependence; Z96.659 Presence of unspecified artificial knee joint; Z95.0 Presence of cardiac pacemaker; Z82.49 Family history of ischemic heart disease and other diseases of the circulatory system; Z79.899 Other long term (current) drug therapy; Z79.01 Long term (current) use of anticoagulants; Z79.84 Long term (current) use of oral hypoglycemic drugs; Z88.0 Allergy status to penicillin
CPT/HCPCS: 93462; 93623; 93662; 93653; 93655; 84132; 87635; C1769 ×4; C1894; C1760 ×2; C1766; C1731; C1893; C1732; J2250; J1644 ×3; J1940; J2710; J2001; J3010; J1170; J0131; J2370; J0330; J2704

== ENCOUNTER → 2021-10-04 | Outpatient (CLI) | payer MEDICARE | END | disposition home or self-care (01) | LOC: LABWHC1 07:28 | PROVIDERS: ATTEND Orthopaedic Surgery | DX: Z96.651 Presence of right artificial knee joint (principal) | CPT/HCPCS: 36415; 85652; 86140 ==

== ENCOUNTER → 2021-10-10 | Outpatient (CLI) | payer MEDICARE ==
--- NOTE | 2021-10-10 15:33 | US ---
EXAMINATION TYPE: US venous doppler duplex LE RT DATE OF EXAM: 10/10/2021 1:41 PM COMPARISON: NONE CLINICAL HISTORY: M79.604 DIFFUSE PAIN RT LOWER EXT. pain SIDE PERFORMED: Right TECHNIQUE: The lower extremity deep venous system is examined utilizing real time linear array sonog saul with graded compression, doppler sonography and color-flow sonography. VESSELS IMAGED: Common Femoral Vein Deep Femoral Vein Greater Saphenous Vein * Femoral Vein Popliteal Vein Small Saphenous Vein * Proximal Calf Veins (* superficial vessels) Right Leg: Negative for DVT Grayscale, color doppler, spectral doppler imaging performed of the deep veins of the right lower ext remity. There is normal flow, compressibility, vascular waveforms. IMPRESSION: No ultrasound evidence for acute DVT in the right lower extremity. Moderate-sized poplit eal cyst noted towards the end of study.
== END | disposition home or self-care (01) ==
LOC: RADUSWWP 12:17
PROVIDERS: ATTEND Family Medicine
DX: M71.20 Synovial cyst of popliteal space [Baker], unspecified knee (principal)
CPT/HCPCS: 93922

== ENCOUNTER → 2022-01-08 | Outpatient (CLI) | payer MEDICARE ==
--- NOTE | 2022-01-09 03:36 | CONS ---
CONSULTATION A 71-year-old gentleman has [facility] for obstructive sleep apnea- hypopnea syndrome. HISTORY OF PRESENT ILLNESS: Sleep-wake evaluation, the patient has been diagnosed with obstructive sleep apnea in our institution 10 years ago. Since that time, the patient is successfully using his CPAP equipment every night. For the whole night, he continues to use the same machine which he started to use originally. Presently, his machine occasionally stopped during the usage. SLEEP SCHEDULE: Patient's sleep schedule from 9:11 p.m. until 7-8 a.m. Sometimes, he has problems with falling asleep, he has TV set in bedroom. Usually, the patient sleeps on the side position and may wake up from sleep up to 4 times with 2 episodes of nocturia. No history of hypnagogic hallucinations, sleep paralysis, or cataplexy. Hughson Sleepiness Scale increased to 13. The patient is falling asleep during the day, may take one nap around noontime. PAST MEDICAL HISTORY: Positive for hypertension, diabetes mellitus, gout, hyperlipidemia, neuropathy, acid reflux, and atrial fibrillation. PAST SURGICAL HISTORY: Cardiac ablation, right knee replacement. MEDICATIONS: Metformin 500 mg twice a day, lisinopril 5 mg once a day, allopurinol 100 mg 2 times a day, atorvastatin 80 mg once a day, Xarelto 20 mg once a day, Furosemide 20 mg every second day, Lyrica 100 mg twice a day, and omeprazole once a day. SOCIAL HISTORY: Ex-smoker for about 30 pack years, quit about 20 years ago. Alcohol consumption occasional. FAMILY HISTORY: Hypertension, asthma, and snoring. REVIEW OF SYSTEMS: Awakenings from sleep, some sleepiness during the day. PHYSICAL EXAMINATION: GENERAL: A pleasant gentleman without distress. VITAL SIGNS: BP 115/70, HR 68, RR 16, height 5 feet 7-3/4 inches, weight 214.2 pounds, body mass index 32.6, temperature 97.6, and oxygen saturation at room air 97%. HEENT: Oropharynx, low position of soft palate, Mallampati 3. NECK: Wide 19-1/3 inches in circumference. Supple, no JVD. Thyroid is not palpable. LUNGS: Clear to percussion and to auscultation. Good air exchange. No wheezing or rhonchi. HEART: S1, S2 regular. No murmurs, gallops, or rubs. ABDOMEN: Soft and nontender. Bowel sounds are present. No organomegaly appreciated. EXTREMITIES: No clubbing or cyanosis. SWATCH MAKER: Awake, alert, and oriented X3. Cranial nerves 2 to 7 intact. There is no fasciculation or atrophy. noted. No focal deficits observed. I checked the patient's CPAP unit, range of the pressure 5-15, average pressure 11.4, usage is 100% of night around 9 hours per night, leak is 24 L/minute which is acceptable. Apnea-hypopnea index only 0.3, which is normal. IMPRESSION: 1. Obstructive sleep apnea-hypopnea syndrome for more than 10 years, the patient continues to use his CPAP equipment every night for the whole night. Apnea- hypopnea index reading from the machine is in normal range. Machine is old, sometimes stops working. 2. Hypertension. 3. Diabetes mellitus. 4. Gout. 5. History of atrial fibrillation, status post cardiac ablation. 6. Hyperlipidemia. 7. Acid reflux. 8. Mild obesity, BMI 32.6. PLAN: 1. Prescription for new CPAP unit, AutoPAP. Range of the pressure 5-15, medium- size AirFit P10 nasal pillow mask. 2. The patient should continue to use CPAP equipment every night for the whole night. 3. Followup visit in 1 month after patient will get new CPAP unit. 4. Losing weight. 5. No driving if feeling sleepiness. 6. Sleep hygiene with time in bed for at least 7-1/2 to 8 hours. 7.Followup visit in 1 months to evaluate clinical response on treatment, compliance with treatment and make any necessary adjustments related to mask fitting, pressure and humidification. Thank you very much for referring this patient for evaluation. MMODL / IJN: [id number] / KALANI
== END ==
LOC: SLEEP 15:30
PROVIDERS: ATTEND Internal Medicine
DX: G47.33 Obstructive sleep apnea (adult) (pediatric) (principal); I10 Essential (primary) hypertension; E11.9 Type 2 diabetes mellitus without complications; E78.5 Hyperlipidemia, unspecified; Z99.89 Dependence on other enabling machines and devices; K21.9 Gastro-esophageal reflux disease without esophagitis; M10.9 Gout, unspecified; I48.91 Unspecified atrial fibrillation; Z98.890 Other specified postprocedural states; Z79.84 Long term (current) use of oral hypoglycemic drugs; Z79.899 Other long term (current) drug therapy; Z88.0 Allergy status to penicillin; Z87.891 Personal history of nicotine dependence
CPT/HCPCS: 99211

== ENCOUNTER → 2022-09-01 | Outpatient (CLI) | payer MEDICARE ==
[2022-09-01 15:20] LABS: HCT 37.6 % (39.6-50.0); HGB 11.7 g/dL (13.0-17.0); MCH 28.6 pg (27.0-32.0); MCHC 31.1 g/dL (32.0-37.0); MCV 91.9 fL (80.0-97.0); NRBC Per 100 WBC 0 /100 WBCS (0.0-0.0); Platelet Count 186 X 10*3/uL (140-440); RBC 4.09 X 10*6/uL (4.40-5.60); RDW 16.3 % (11.5-14.5); WBC 5.64 X 10*3/uL (4.50-10.00)
[2022-09-01 15:36] LABS: African American GFR (CKD) 79.4 (60.0-200.0); Anion Gap 11.3 mmol/L (10.00-18.00); Blood Urea Nitrogen 19.6 mg/dL (9.0-27.0); Carbon Dioxide 25.7 mmol/L (20.0-27.5); Non-African American GFR(CKD) 68.5 (60.0-200.0); Potassium 4.7 mmol/L (3.5-5.5)
== END | disposition home or self-care (01) ==
LOC: LABPAT 09:41
PROVIDERS: ATTEND Internal Medicine Clinical Cardiac Electrophysiology
DX: Z01.812 Encounter for preprocedural laboratory examination (principal); T82.111A Breakdown (mechanical) of cardiac pulse generator (battery), initial encounter; Y82.9 Unspecified medical devices associated with adverse incidents
CPT/HCPCS: 36415; 80051; 82565; 84520; 85027

== ENCOUNTER 2024-02-29 18:23 | Emergency (ER) | payer MEDICARE ==
[2024-02-29 18:34] VITALS: RESP 16; TEMP 97.8
--- NOTE | 2024-02-29 18:45 | ED ---
Fall HPI - General Source: patient, RN notes reviewed Mode of arrival: wheelchair <Marjorie Banda - Last Filed: 02/29/24 18:43> - General Source: patient, RN notes reviewed Mode of arrival: wheelchair Limitations: no limitations <Jean Marie Smith - Last Filed: 02/29/24 20:50> - General Chief Complaint: Fall Stated Complaint: Fall on thinners-back injury Time Seen by Provider: 02/29/24 18:38 - History of Present Illness Initial Comments: Quick [id number] male presents emergency department chief complaint of a fall. States that he was on a stepstool approximately 3 feet off the ground when he fell backwards onto a bench injuring the left side of his back. He denies hitting his head. Patient is on blood thinners. (Marjorie Banda) 73-year-old male presents emergency department complaint of a fall. Patient states that he was on 3 foot stepstool states that he fell over onto another bench he was using the paint. Patient states he fell onto his left hip and backside. Denies any head injury no loss conscious. Patient states there is a bump towards his buttocks and lower back region. He denies any bowel complaint and cons retention no saddle seizures no chest pain or shortness of breath no other complaints. (Jean Marie Smith) - Related Data Home Medications Medication Instructions Recorded Confirmed Atorvastatin [Lipitor] 80 mg PO DAILY 03/31/14 09/15/22 allopurinoL [Zyloprim] 100 mg PO BID 03/31/14 09/15/22 lisinopriL [Zestril] 5 mg PO DAILY 03/31/14 09/15/22 Furosemide [Lasix] 20 mg PO DAILY 01/22/16 09/15/22 metFORMIN HCL [Glucophage] 500 mg PO BID 01/22/16 09/15/22 Rivaroxaban [Xarelto] 20 mg PO HS 05/06/16 09/15/22 Pregabalin [Lyrica] 150 mg PO BID 07/17/22 09/15/22 Previous Rx's Medication Instructions Recorded HYDROcodone/APAP 5-325MG [[place] 5] 1 each PO Q6HR PRN #12 tab 02/29/24 Allergies Allergy/AdvReac Type Severity Reaction Status Date / Time Penicillins Allergy Rash/Hives Verified 02/29/24 18:34 Review of Systems ROS Other: All systems not noted in ROS Statement are negative. <Marjorie Banda - Last Filed: 02/29/24 18:43> ROS Other: All systems not noted in ROS Statement are negative. <Jean Marie Smith - Last Filed: 02/29/24 20:50> ROS Statement: Those systems with pertinent positive or pertinent negative responses have been documented in the HPI. Past Medical History Past Medical History: Atrial Fibrillation, Diabetes Mellitus, GERD/Reflux, Hyperlipidemia, Sleep Apnea/CPAP/BIPAP Additional Past Medical History / Comment(s): GOUT, SEE DR HEART'S HISTORY AND PHYSICAL, C PAP MACHINE History of Any Multi-Drug Resistant Organisms: None Reported Past Surgical History: Cardiac Ablation, Joint Replacement, Pacemaker Additional Past Surgical History / Comment(s): RIGHT KNEE REPLACEMENT X2 Past Anesthesia/Blood Transfusion Reactions: No Reported Reaction Type of Cardiac Device: Permanent Pacemaker Device Placement Date:: 02-21-2013 Past Psychological History: No Psychological Hx Reported Smoking Status: Former smoker Past Alcohol Use History: Occasional Past Drug Use History: None Reported - Past Family History Mother Family Medical History: No Reported History Father Family Medical History: Pneumonia Additional Family Medical History / Comment(s): "heart problems" <Marjorie Banda - Last Filed: 02/29/24 18:43> General Exam Limitations: no limitations <Marjorie Banda - Last Filed: 02/29/24 18:43> General appearance: alert, in no apparent distress Head exam: Present: atraumatic, normocephalic, normal inspection Eye exam: Present: normal appearance, PERRL, EOMI. Absent: scleral icterus, conjunctival injection, periorbital swelling ENT exam: Present: normal exam, mucous membranes moist Neck exam: Present: normal inspection, full ROM. Absent: tenderness, meningismus, lymphadenopathy Respiratory exam: Present: normal lung sounds bilaterally. Absent: respiratory distress, wheezes, rales, rhonchi, stridor Cardiovascular Exam: Present: regular rate, normal rhythm, normal heart sounds. Absent: systolic murmur, diastolic murmur, rubs, gallop, clicks GI/Abdominal exam: Present: soft, normal bowel sounds. Absent: distended, tenderness, guarding, rebound, rigid Extremities exam: Present: normal inspection, full ROM, normal capillary refill. Absent: tenderness, pedal edema, joint swelling, calf tenderness Back exam: Present: tenderness, paraspinal tenderness, vertebral tenderness. Absent: normal inspection (Hematoma right lower right buttocks region), full ROM Neurological exam: Present: alert, oriented X3, CN II-XII intact, reflexes normal. Absent: motor sensory deficit <Jean Marie Smith - Last Filed: 02/29/24 20:50> - General Exam Comments Initial Comments: Visual Physical Exam Vital signs reviewed General: Well-appearing, nontoxic, no acute distress. Head: Normocephalic, atraumatic Eyes: PERRLA, EOMI ENT: Airway patent Chest: Nonlabored breathing Skin: No visual rash, normal skin tone Neuro: Alert and oriented 3 Musculoskeletal: No gross abnormalities (Marjorie Banda) Course Vital Signs 02/29/24 18:32 Temperature 97.8 F Pulse Rate 60 Respiratory 16 Rate Blood Pressure 137/82 O2 Sat by Pulse 97 Oximetry Medical Decision Making <Marjorie Banda - Last Filed: 02/29/24 18:43> <Jean Marie Smith - Last Filed: 02/29/24 20:50> - Medical Decision Making I completed the quick note portion of this chart signed Marjorie Banda PA-C (Marjorie Banda) Was pt. sent in by a medical professional or institution ([facility], [facility], urgent care, hospital, or intermediate...) When possible be specific @ -No Did you speak to anyone other than the patient for history (EMS, parent, family, police, friend...)? What history was obtained from this source @ -No Did you review nursing and triage notes (agree or disagree)? Why? @ -I reviewed and agree with nursing and triage notes Were old charts reviewed (outside hosp., previous admission, EMS record, old EKG, old radiological studies, urgent care reports/EKG's, intermediate records)? Report findings @ -No old charts were reviewed Differential Diagnosis (chest pain, altered mental status, abdominal pain women, abdominal pain men, vaginal bleeding, weakness, fever, dyspnea, syncope, headache, dizziness, GI bleed, back pain, seizure, CVA, palpatations, mental health, musculoskeletal)? @ -Fall, lumbar fracture, intra-abdominal hemorrhage, liver laceration, kidney laceration, soft tissue hematoma EKG interpreted by me (3pts min.). @ -None X-rays interpreted by me (1pt min.). @ -None done CT interpreted by me (1pt min.). @ -CT abdomen pelvis showing no evidence of hematoma right lower iliac region in the soft tissue no intra-abdominal bleeding L2 transverse fracture U/S interpreted by me (1pt. min.). @ -None done What testing was considered but not performed or refused? (CT, X-rays, U/S, labs)? Why? @ -None What meds were considered but not given or refused? Why? @ -None Did you discuss the management of the patient with other professionals (professionals i.e. , PA, [facility] COVERER, lab, RT, psych nurse, social services director, secretarial stenographer, teacher, dairy quality assurance officer, case hardener)? Give summary @ -No Was smoking cessation discussed for >3mins.? @ -No Was critical care preformed (if so, how long)? @ -No Were there social determinants of health that impacted care today? How? (Homelessness, low income, unemployed, alcoholism, drug addiction, transportation, low edu. Level, literacy, decrease access to med. care, [place] [facility], rehab)? @ -No Was there de-escalation of care discussed even if they declined (Discuss DNR or withdrawal of care, Hospice)? DNR status @ -No What co-morbidities impacted this encounter? (DM, HTN, Smoking, COPD, CAD, Cancer, CVA, ARF, Chemo, Hep., AIDS, mental health diagnosis, sleep apnea, morbid obesity)? @ -None Was patient admitted / discharged? Hospital course, mention meds given and route, prescriptions, significant lab abnormalities, going to OR and other pertinent info. @ -Discharge patient presented for a fall CT was obtained showing soft tissue h ematoma and possible L2 transverse fracture he has no red flag symptoms patient will be discharged with analgesics and close orthopedic follow-up. Undiagnosed new problem with uncertain prognosis? @ -No Drug Therapy requiring intensive monitoring for toxicity (Heparin, Nitro, Insulin, Cardizem)? @ -No Were any procedures done? @ -No Diagnosis/symptom? @ -Fall, soft tissue hematoma, L2 transverse fracture Acute, or Chronic, or Acute on Chronic? @ -Acute Uncomplicated (without systemic symptoms) or Complicated (systemic symptoms)? @ -Complicated Side effects of treatment? @ -No Exacerbation, Progression, or Severe Exacerbation? @ -No Poses a threat to life or bodily function? How? (Chest pain, [place], [place], pneumonia, PE, COPD, DKA, ARF, appy, cholecystitis, CVA, Diverticulitis, Homicidal, Suicid al, threat to staff... and all critical care pts) @ -No (Jean Marie Smith) Disposition <Marjorie Banda - Last Filed: 02/29/24 18:43> Is patient prescribed a controlled substance at d/c from ED?: Yes When asked, does pt state using other controlled substances?: No If prescribed controlled substance>3 days was MAPS reviewed?: Prescribed <3 Days If opioid is for acute pain is fill amount 7 days or less?: Yes If Rx opioid, was Start Talking consent form obtained?: Yes Time of Disposition: 20:50 <Jean Marie Smith - Last Filed: 02/29/24 20:50> Clinical Impression: Fall, Hematoma, Fracture of transverse process of vertebra Disposition: HOME SELF-CARE Condition: Stable Instructions (If sedation given, give patient instructions): Spinous Process Fracture (ED) Additional Instructions: Please return to the Emergency Department if symptoms worsen or any other concerns. Prescriptions: HYDROcodone/APAP 5-325MG [[place] 5] 1 each PO Q6HR PRN #12 tab PRN Reason: Pain Referrals: Cameron Chandler MD [Primary Care Provider] - 1-2 days Lucien Fields DO [Doctor of Osteopathic Medicine] - 1-2 days
--- NOTE | 2024-02-29 20:26 | CT ---
EXAMINATION TYPE: CT abdomen pelvis wo con DATE OF EXAM: 02/29/2024 COMPARISON: None HISTORY: 73-year-old male with back and flank pain after fall on thinners CT DLP: 652.6 mGycm. Automated exposure control for dose reduction was used. TECHNIQUE: Contiguous axial scanning of the abdomen and pelvis without IV contrast. Coronal and sagit laure reconstructions performed. FINDINGS: Heart is borderline enlarged without pericardial effusion. Right atrial and right ventricular pacer l rj are noted. RCA coronary artery calcifications. Groundglass and reticular change in the lower hosea gs could reflect interstitial pneumonitis or some underlying fibrosis. Noncontrast appearance of the liver, gallbladder, right adrenal gland, spleen, and pancreas within no rmal limits. Bilateral perinephric edema could reflect chronic kidney disease or senescent change. A cortical hypodensity measuring 1.5 cm anterior upper pole likely underlying cortical cyst. Some thickening of the left adrenal gland without discrete nodularity. No dilated small bowel, free fluid, or free air. No mesenteric or retroperitoneal lymphadenopathy. Some prominent fluid-filled small bowel loops in the lower abdomen and pelvis, probably transient. Scattered mild stool. Left-sided colonic diverticulosis especially in the sigmoid colon. No pericolon ic inflammatory change. Mild circumferential bladder wall thickening probably chronic thickening. Prostate gland mildly enlar ged at 4.5 cm wide. Pelvic phlebolith. No abnormal fluid collection in the pelvis or pelvic lymphaden opathy. Bones: Moderate degenerative change left hip and mild at the right hip. Moderate to severe spondyloti c changes throughout the visualized spine with patient in the lower thoracic spine. No vertebral comp ression collapse. Degenerative trace grade 1 retrolisthesis L1-L2 and trace grade 1 anterolisthesis L 5-S1. Possible subtle nondisplaced fracture left L2 transverse process, axial image 31. There is prom inent bruising along the median and right paramedian posterior back along with focal subcutaneous sof t tissue hematoma measuring 5.5 x 3.5 x 2.1 cm just behind the posterior medial right iliac bone. IMPRESSION: 1. Prominent soft tissue bruising median and right median lower back/buttock region along with focal subcutaneous hematoma measuring 5.5 x 3.5 x 2.1 cm. 2. Possible nondisplaced fracture left L2 transverse process. 3. Moderate to severe spondylotic change throughout the visualized spine including dictation the lowe r thoracic spine. 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 4. Left-sided colonic diverticulosis especially in the sigmoid colon. No evidence for acute diverticu litis. [facility], , 02/29/2024 8:23 PM
[2024-02-29] MEDS: HYDROcodone/APAP 7.5-325MG 1 EACH TAB PO ONE (20:54)
[2024-02-29 20:58] VITALS: BP 136/84; PULSE 59
== END 2024-02-29 21:01 | disposition home or self-care (01) ==
LOC: EC 18:23
CPT/HCPCS: 74176; 99283

== ENCOUNTER 2024-05-23 21:49 | Emergency (ER) | payer MEDICARE ==
[2024-05-23 22:01] VITALS: RESP 18; TEMP 97.4
--- NOTE | 2024-05-23 22:42 | ED ---
Extremity Problem HPI - General Chief complaint: Extremity Problem,Nontraumatic Stated complaint: L Toe Discoloration Time Seen by Provider: 05/23/24 22:26 Source: patient, RN notes reviewed, old records reviewed Mode of arrival: ambulatory Limitations: no limitations - History of Present Illness Initial comments: This 73-year-old male to the ER for evaluation history of diabetes history of neuropathy. Patient has noted for a few days that his middle toe on his left foot has been swollen, and having increasing discoloration today it was black. Patient has been feeling feverish with chills. Patient does have appoint with primary care tomorrow but was concerned at the fever and chills symptoms MD Complaint: extremity pain, extremity swelling, other (Left middle toe swelling, redness not into the foot or ankle, the tip of the toe is turning black) Location: left, toe (Middle) -: Yes fever Radiation: none Quality: aching Consistency: constant Improves with: nothing Worsens with: walking - Related Data Home Medications Medication Instructions Recorded Confirmed Atorvastatin [Lipitor] 80 mg PO DAILY 03/31/14 09/15/22 allopurinoL [Zyloprim] 100 mg PO BID 03/31/14 09/15/22 lisinopriL [Zestril] 5 mg PO DAILY 03/31/14 09/15/22 Furosemide [Lasix] 20 mg PO DAILY 01/22/16 09/15/22 metFORMIN HCL [Glucophage] 500 mg PO BID 01/22/16 09/15/22 Rivaroxaban [Xarelto] 20 mg PO HS 05/06/16 09/15/22 Pregabalin [Lyrica] 150 mg PO BID 07/17/22 09/15/22 Previous Rx's Medication Instructions Recorded HYDROcodone/APAP 5-325MG [[place] 5] 1 each PO Q6HR PRN #12 tab 02/29/24 Cephalexin [Keflex] 500 mg PO Q6HR 7 Days #28 cap 05/23/24 Sulfamethox-Tmp 800-160Mg [Bactrim 2 tab PO Q12HR #28 tab 05/23/24 DS 800-160 mg] Allergies Allergy/AdvReac Type Severity Reaction Status Date / Time Penicillins Allergy Rash/Hives Verified 05/23/24 22:01 Review of Systems ROS Statement: Those systems with pertinent positive or pertinent negative responses have been documented in the HPI. ROS Other: All systems not noted in ROS Statement are negative. Past Medical History Past Medical History: Atrial Fibrillation, Diabetes Mellitus, GERD/Reflux, Hyperlipidemia, Sleep Apnea/CPAP/BIPAP Additional Past Medical History / Comment(s): GOUT, SEE DR HEART'S HISTORY AND PHYSICAL, C PAP MACHINE History of Any Multi-Drug Resistant Organisms: None Reported Past Surgical History: Cardiac Ablation, Joint Replacement, Pacemaker Additional Past Surgical History / Comment(s): RIGHT KNEE REPLACEMENT X2 Past Anesthesia/Blood Transfusion Reactions: No Reported Reaction Type of Cardiac Device: Permanent Pacemaker Device Placement Date:: 02-21-2013 Past Psychological History: No Psychological Hx Reported Smoking Status: Former smoker Past Alcohol Use History: Occasional Past Drug Use History: None Reported - Past Family History Mother Family Medical History: No Reported History Father Family Medical History: Pneumonia Additional Family Medical History / Comment(s): "heart problems" General Exam Limitations: no limitations General appearance: alert, in no apparent distress Head exam: Present: atraumatic, normocephalic, normal inspection Eye exam: Present: normal appearance, PERRL, EOMI. Absent: scleral icterus, conjunctival injection, periorbital swelling ENT exam: Present: normal exam, mucous membranes moist Neck exam: Present: normal inspection. Absent: tenderness, meningismus, lymphadenopathy Respiratory exam: Present: normal lung sounds bilaterally. Absent: respiratory distress, wheezes, rales, rhonchi, stridor Cardiovascular Exam: Present: regular rate, normal rhythm, normal heart sounds. Absent: systolic murmur, diastolic murmur, rubs, gallop, clicks GI/Abdominal exam: Present: soft, normal bowel sounds. Absent: distended, tenderness, guarding, rebound, rigid Extremities exam: Present: normal inspection, full ROM, normal capillary refill. Absent: tenderness, pedal edema, joint swelling, calf tenderness Back exam: Present: normal inspection Neurological exam: Present: alert, oriented X3, CN II-XII intact Psychiatric exam: Present: normal affect, normal mood Skin exam: Present: warm, dry, intact, normal color. Absent: rash Course Vital Signs 05/23/24 05/23/24 21:56 23:51 Temperature 97.4 F L Pulse Rate 69 60 Respiratory 18 18 Rate Blood Pressure 160/71 158/72 O2 Sat by Pulse 98 98 Oximetry - Reevaluation(s) Reevaluation #1: 05/23/24 22:42 Records reviewed Reevaluation #2: Patient symptoms unchanged here in the ER no symptoms no pain no fever Reevaluation #3: Patient informed of results questions answered Reevaluation #4: Was pt. sent in by a medical professional or institution ([facility], [facility], urgent care, hospital, or [facility]...) When possible be specific @ -no Did you speak to anyone other than the patient for history (EMS, parent, family, police, friend...)? What history was obtained from this source @ -no Did you review nursing and triage notes (agree or disagree)? Why? @ -agree Are old charts reviewed (outside hosp., previous admission, EMS record, old EKG, old radiological studies, urgent care reports/EKG's, [facility] records)? Report findings @ -yes Differential Diagnosis (chest pain, altered mental status, abdominal pain women, abdominal pain men, vaginal bleeding, weakness, fever, dyspnea, syncope, headache, dizziness, GI bleed, back pain, seizure, CVA, palpatations, mental health, musculoskeletal)? @ -prior EKG interpreted by me (3pts min.). @ -no X-rays interpreted by me (1pt min.). @ -no CT interpreted by me (1pt min.). @ -no U/S interpreted by me (1pt. min.). @ -no What testing was considered but not performed or refused? (CT, X-rays, U/S, labs)? Why? @ -none What meds were considered but not given or refused? Why? @ -none Did you discuss the management of the patient with other professionals (professionals i.e. [facility], SEAMAN, lab, RT, psych nurse, social insurance administrator, cargo agent, teacher, anti air warfare operations officer, rn case management)? Give summary @ -no Was smoking cessation discussed for >3mins.? @ -no Was critical care preformed (if so, how long)? @ -no Were there social determinants of health that impacted care today? How? (Homelessness, low income, unemployed, alcoholism, drug addiction, transportatio n, low edu. Level, literacy, decrease access to med. care, detention, rehab)? @ -none Was there de-escalation of care discussed even if they declined (Discuss DNR or withdrawal of care, Hospice)? DNR status @ -no What co-morbidities impacted this encounter? (DM, HTN, Smoking, COPD, CAD, Cancer, CVA, ARF, Chemo, Hep., AIDS, mental health diagnosis, sleep apnea, morbid obesity)? @ -none Was patient admitted / discharged? Hospital course, mention meds given and route, prescriptions, significant lab abnormalities, going to OR and other pertinent info. @ - 73 male with diabetic foot ulcer increasing cellulitis no pain patient has no feeling in the foot, patient has no complaints not currently on antibiotics placed on antibiotics did speak with primary care who will see patient in the office Discharged Undiagnosed new problem with uncertain prognosis? @ -no Drug Therapy requiring intensive monitoring for toxicity (Heparin, Nitro, Insulin, Cardizem)? @ -no Were any procedures done? @ -no Diagnosis/symptom? @ -Foot ulcer with cellulitis Acute, or Chronic, or Acute on Chronic? @ -Acute Uncomplicated (without systemic symptoms) or Complicated (systemic symptoms)? @ -Complicated Side effects of treatment? @ -no Exacerbation, Progression, or Severe Exacerbation? @ -exacerbation Poses a threat to life or bodily function? How? (Chest pain, [place], [place], pneumonia, PE, COPD, DKA, ARF, appy, cholecystitis, CVA, Diverticulitis, Homicidal, Suicidal, threat to staff... and all critical care pts) @ -yes extremes of age Reevaluation #5: Differential Fever: Pneumonia, viral URI, endocarditis, myocarditis, pericarditis, otitis, sinusitis, peritonsillar Abscess, retropharyngeal Abscess, epiglottitis, peritonitis, appendicitis, Raissa cystitis, diverticulitis, hepatitis, colitis, UTI, PID, TOA, pyelonephritis, prostatitis, epididymitis, meningitis, encephalitis, pulmonary embolism, CVA, thyroid storm, pancreatitis, adrenal crisis, cavernous sinus thrombosis, this is not meant to be an all-inclusive list. - Consultations Consultation #1: Spoke with Dr. Chandler primary care who will see patient in office tomorrow Medical Decision Making - Medical Decision Making 73 male with diabetic foot ulcer increasing cellulitis no pain patient has no feeling in the foot, patient has no complaints not currently on antibiotics placed on antibiotics did speak with primary care who will see patient in the office Disposition Clinical Impression: Cellulitis of left foot, Skin ulcer of third toe of right foot Disposition: HOME SELF-CARE Condition: Fair Prescriptions: Sulfamethox-Tmp 800-160Mg [Bactrim DS 800-160 mg] 2 tab PO Q12HR #28 tab Cephalexin [Keflex] 500 mg PO Q6HR 7 Days #28 cap Is patient prescribed a controlled substance at d/c from ED?: No Referrals: Cameron Chandler MD [Primary Care Provider] - 1-2 days Time of Disposition: 23:00
[2024-05-23] MEDS: IBUPROFEN 600 MG TAB PO STA (23:07)
[2024-05-23] MEDS: ACETAMINOPHEN TAB 500 MG TAB PO STA (23:07)
[2024-05-23] MEDS: SULFAMETHOX-TMP 800-160MG 1 EACH TAB PO STA (23:08)
[2024-05-23] MEDS: CEPHALEXIN 500 MG CAP PO STA (23:08)
[2024-05-23] MEDS: SULFAMETH-TMP DS STARTER PACK 2 TAB BTL PO STA (23:42)
[2024-05-23] MEDS: IBUPROFEN 600 MG STARTER PACK 4 TAB BTL PO STA (23:43)
[2024-05-23] MEDS: CEPHALEXIN 500MG STARTER PACK 4 CAP BTL PO STA (23:43)
[2024-05-23 23:52] VITALS: BP 158/72; PULSE 60
== END 2024-05-23 23:52 | disposition home or self-care (01) ==
LOC: EC 21:49
DX: L03.116 Cellulitis of left lower limb (principal); L97.511 Non-pressure chronic ulcer of other part of right foot limited to breakdown of skin; E11.40 Type 2 diabetes mellitus with diabetic neuropathy, unspecified; Z87.891 Personal history of nicotine dependence; Z88.0 Allergy status to penicillin
CPT/HCPCS: 99283

== ENCOUNTER → 2024-05-25 | Outpatient (CLI) | payer MEDICARE ==
[2024-05-25 16:52] LABS: ALT 28 U/L (10-49); AST 32 U/L (14-35); Albumin/Globulin Ratio 1.21 Ratio (1.60-3.17); Alkaline Phosphatase 79 U/L (41-126); BUN/Creat Ratio 14.29 Ratio (12.00-20.00); Carbon Dioxide 22.6 mmol/L (21.6-31.8); Chloride 100 mmol/L (96-109); Globulin 3.3 g/dL (1.6-3.3); Glucose 96 mg/dL (70-110); Potassium 4.7 mmol/L (3.5-5.5); Sodium 134 mmol/L (135-145); Total Bilirubin 0.7 mg/dL (0.3-1.2); Total Protein 7.3 g/dL (6.2-8.2)
[2024-05-25 17:22] LABS: Basophils # (A) 0.04 X 10*3/uL (0.00-0.10); Basophils % (A) 0.8 %; Eosinophils # (A) 0.05 X 10*3/uL (0.04-0.35); HCT 38.7 % (39.6-50.0); HGB 12.4 g/dL (13.0-17.0); Lymphocytes # (A) 0.79 X 10*3/uL (0.90-5.00); Lymphocytes % (A) 15.9 %; MCH 31.3 pg (27.0-32.0); MCV 97.7 FL (80.0-97.0); Mean Platelet Volume 11.5 FL (9.5-12.2); Monocytes # (A) 0.99 X 10*3/uL (0.20-1.00); Monocytes % (A) 19.9 %; NRBC Per 100 WBC 0 X 10*3/uL (0.00-0.01); Neutrophils # (A) 3.09 X 10*3/uL (1.80-7.70); Platelet Count 174 X 10*3/uL (140-440); RBC 3.96 X 10*6/uL (4.40-5.60); RDW 15.1 % (11.5-14.5); WBC 4.98 X 10*3/uL (4.50-10.00)
[2024-05-25 17:35] LABS: Erythrocyte Sedimentation Rate 36 mm/Hr (0-20)
== END | disposition home or self-care (01) ==
LOC: LABWHC1 08:52
PROVIDERS: ATTEND Family Medicine
DX: E11.621 Type 2 diabetes mellitus with foot ulcer (principal); L97.509 Non-pressure chronic ulcer of other part of unspecified foot with unspecified severity
CPT/HCPCS: 36415; 80053; 85025; 85652; 86140

== ENCOUNTER → 2024-05-25 | Outpatient (CLI) | payer MEDICARE ==
--- NOTE | 2024-05-25 15:06 | XR ---
EXAMINATION TYPE: XR foot limited LT DATE OF EXAM: 05/25/2024 2:57 PM COMPARISON: None CLINICAL INDICATION: Male, 73 years old with history of TYPE 2 DIABETES MELITIUS W/ FOOT ULCER E11.62 1; PHH, pain TECHNIQUE: XR foot limited LT examined in the AP, oblique, and lateral projections. FINDINGS: No evidence of any acute osseous pathology. Atherosclerosis of the arterial vasculature. No evidence of osseous erosion to suggest osteomyelitis. Calcaneal plantar spurring is present. Multifocal degene ration changes throughout the joints of the foot with osteophyte formation and joint space narrowing. IMPRESSION: 1. No evidence of acute fracture. 2. Multifocal degeneration changes throughout the joints of the foot. [facility], , 05/25/2024 3:04 PM
== END | disposition home or self-care (01) ==
LOC: RADXRMAIN 14:36
PROVIDERS: ATTEND Family Medicine
DX: M19.072 Primary osteoarthritis, left ankle and foot (principal); E11.621 Type 2 diabetes mellitus with foot ulcer

== ENCOUNTER → 2024-06-06 | Outpatient (CLI) | payer MEDICARE ==
--- NOTE | 2024-06-06 14:08 | US ---
EXAMINATION TYPE: US venous doppler duplex LE LT DATE OF EXAM: 06/06/2024 1:53 PM COMPARISON: NONE CLINICAL INDICATION: Male, 73 years old with history of E11.621 TYPE 2 DIABETES MELLITUS WITH FOOT UL CER; , Pain TECHNIQUE: The lower extremity deep venous system is examined utilizing real time linear array sonog saul with graded compression, color doppler sonography, and spectral doppler. SIDE PERFORMED: Left FINDINGS: VESSELS IMAGED: Common Femoral Vein Deep Femoral Vein Greater Saphenous Vein * Femoral Vein Popliteal Vein Small Saphenous Vein * Proximal Calf Veins (* superficial vessels) Left Leg: Negative for DVT, Color Doppler imaging shows patency of the vessels. Spectral waveforms a re within normal limits. IMPRESSION: No evidence of deep vein thrombosis of the left lower extremity. [facility], , 06/06/2024 2:06 PM
--- NOTE | 2024-06-06 15:26 | US ---
EXAMINATION TYPE: US arterial LE single level DATE OF EXAM: 06/06/2024 2:58 PM COMPARISONS: 10/10/2021 CLINICAL INDICATION: Male, 73 years old with history of E11.621 Type 2 diabetes; TECHNIQUE: Systolic pressures were taken of the upper and lower extremity arteries with ankle-brachia l indices and toe brachial indices calculated bilaterally. History of: Smoker: previous Hypertension: Diabetic: Yes Hyperlipidemia: Yes TIA/CVA: No Previous Vascular Surgery: No CAD: No ID: No Vascular Ulcers: Left Claudication: No Gangrene: No FINDINGS: Doppler Waveforms: Right: Multiphasic waveforms within the right femoral artery. Biphasic waveforms within the right pop liteal and posterior tibial arteries. Monophasic waveforms within the dorsalis pedis and digit. Left: Multiphasic waveforms within the left femoral, popliteal, posterior tibial, dorsalis pedis kandy chriss. Monophasic waveform within the digit. Brachial Artery systolic pressure: Right: 106 Left: 91 Posterior Tibial artery systolic pressure: Right: 143 Left: 141 Dorsalis Pedis artery systolic pressure: Right: 129 Left: cno Toe artery systolic pressure: Right: 87 Left: 51 Ankle-Brachial Indices: Right: 1.35 Left: Unable to obtain. Toe Brachial Indices: Right: 0.82 Left: 0.48 (Normal > 0.6; Mild 0.35 - 0.59, Moderate 0.12 - 0.34, Severe <0.12) IMPRESSION: Right: At the upper limits of KAREN which could represent noncompressible vessels. Left: Mild Arterial Disease based on toe brachial index, unable to obtain left ankle-brachial index. [facility], , 06/06/2024 3:24 PM
== END | disposition home or self-care (01) ==
LOC: RADUSWWP 13:15
PROVIDERS: ATTEND Family Medicine
DX: L97.523 Non-pressure chronic ulcer of other part of left foot with necrosis of muscle (principal); E11.621 Type 2 diabetes mellitus with foot ulcer; E11.59 Type 2 diabetes mellitus with other circulatory complications; I10 Essential (primary) hypertension; E11.69 Type 2 diabetes mellitus with other specified complication; E78.2 Mixed hyperlipidemia
CPT/HCPCS: 93922

== ENCOUNTER 2024-06-25 18:22 | Inpatient (IN) | payer MEDICARE ==
--- NOTE | 2024-06-25 18:46 | ED ---
General Adult HPI - General Stated complaint: L possible foot infection Time Seen by Provider: 06/25/24 18:45 Source: patient Mode of arrival: ambulatory Limitations: no limitations - History of Present Illness Initial comments: 73-year-old male presenting with chief complaint of infection to his left middle toe. Patient has history of neuropathy. He states that yesterday he noticed it getting increasingly red and swollen. He reports that 3 weeks ago he did have a callus removed from his foot. He is currently seeing wound care and is wearing a postoperative shoe. He was told to come to the ER by his PCP. No fever. No bleeding or discharge. - Related Data Home Medications Medication Instructions Recorded Confirmed Atorvastatin [Lipitor] 80 mg PO DAILY 03/31/14 06/26/24 allopurinoL [Zyloprim] 100 mg PO BID 03/31/14 06/26/24 lisinopriL [Zestril] 5 mg PO HS 03/31/14 06/26/24 Furosemide [Lasix] 20 mg PO Q48H 01/22/16 06/26/24 metFORMIN HCL [Glucophage] 500 mg PO BID 01/22/16 06/26/24 Rivaroxaban [Xarelto] 20 mg PO HS 05/06/16 06/26/24 Cinnamon Bark [Cinnamon] 1,000 mg PO BID 06/26/24 06/26/24 Collagenase [Santyl Ointment] 1 applic TOPICAL DAILY 06/26/24 06/26/24 Dronedarone [Multaq] 400 mg PO AC-BID 06/26/24 06/26/24 Omeprazole [PriLOSEC] 20 mg PO Q48H 06/26/24 06/26/24 Pregabalin [Lyrica] 100 mg PO BID 06/26/24 06/26/24 Semaglutide [Ozempic] 1 mg SQ TU 06/26/24 06/26/24 Sodium Chloride 0.9% Irrigatio 1 dose TOPICAL DAILY 06/26/24 06/26/24 [Saline 0.9% Irrigation Bottle] Previous Rx's Medication Instructions Recorded ceFAZolin [Kefzol] 2 gm IVP Q8HR #120 each 06/29/24 Allergies Allergy/AdvReac Type Severity Reaction Status Date / Time Penicillins Allergy Rash/Hives Verified 06/26/24 14:16 Review of Systems ROS Statement: Those systems with pertinent positive or pertinent negative responses have been documented in the HPI. ROS Other: All systems not noted in ROS Statement are negative. Past Medical History Past Medical History: Atrial Fibrillation, Diabetes Mellitus, GERD/Reflux, Hyperlipidemia, Sleep Apnea/CPAP/BIPAP Additional Past Medical History / Comment(s): GOUT, SEE DR HEART'S HISTORY AND PHYSICAL, C PAP MACHINE History of Any Multi-Drug Resistant Organisms: None Reported Past Surgical History: Cardiac Ablation, Joint Replacement, Pacemaker Additional Past Surgical History / Comment(s): RIGHT KNEE REPLACEMENT X2 Past Anesthesia/Blood Transfusion Reactions: No Reported Reaction Type of Cardiac Device: Permanent Pacemaker Device Placement Date:: 02-21-2013 Past Psychological History: No Psychological Hx Reported Smoking Status: Former smoker Past Alcohol Use History: Occasional Past Drug Use History: None Reported - Past Family History Mother Family Medical History: No Reported History Father Family Medical History: Pneumonia Additional Family Medical History / Comment(s): "heart problems" General Exam - General Exam Comments Initial Comments: Visual Physical Exam Vital signs reviewed General: Well-appearing, nontoxic, no acute distress. Head: Normocephalic, atraumatic Eyes: PERRLA, EOMI ENT: Airway patent Chest: Nonlabored breathing Skin: No visual rash, normal skin tone Neuro: Alert and oriented 3 Musculoskeletal: No gross abnormalities Limitations: no limitations General appearance: alert, in no apparent distress Head exam: Present: atraumatic, normocephalic, normal inspection Eye exam: Present: normal appearance, EOMI Neck exam: Present: normal inspection. Absent: meningismus Respiratory exam: Absent: respiratory distress Cardiovascular Exam: Present: regular rate Left Foot/Toe exam: Present: erythema (Erythema swelling and large scab over the left middle toe) Neurological exam: Present: alert, oriented X3 Psychiatric exam: Present: normal affect, normal mood Course Vital Signs 06/25/24 06/25/24 18:40 22:29 Temperature 98.2 F Pulse Rate 66 60 Respiratory 16 18 Rate Blood Pressure 134/76 120/78 O2 Sat by Pulse 97 97 Oximetry Medical Decision Making - Medical Decision Making I performed the quick note portion of this visit, electronically signed Loco Cruz PA-C Was pt. sent in by a medical professional or institution ([facility]qu[facility], AVIONICS SUPERVISOR, urgent care, hospital, or fpc...) When possible be specific @ -PCP Did you speak to anyone other than the patient for history (EMS, parent, family, police, friend...)? What history was obtained from this source @ -No Did you review nursing and triage notes (agree or disagree)? Why? @ -I reviewed and agree with nursing and triage notes Were old charts reviewed (outside hosp., previous admission, EMS record, old EKG, old radiological studies, urgent care reports/EKG's, fpc records)? Report findings @ -No old charts were reviewed Differential Diagnosis (chest pain, altered mental status, abdominal pain women, abdominal pain men, vaginal bleeding, weakness, fever, dyspnea, syncope, headache, dizziness, GI bleed, back pain, seizure, CVA, palpatations, mental health, musculoskeletal)? @ -Differential Musculoskeletal Muscular strain, contusion, ligament sprain, fracture, arthritis, septic arthritis, bursitis, cellulitis, muscle spasm, nerve compression, DVT, arterial occlusion, herpes zoster, electrolyte abnormality, tumor.... This is not meant to be in all inclusive list EKG interpreted by me (3pts min.). @ -As above X-rays interpreted by me (1pt min.). @ -X-ray shows soft tissue swelling of the third digit with increased lucency of the distal aspect of the distal phalanx concerning for osteomyelitis. No evidence of fracture CT interpreted by me (1pt min.). @ -None done U/S interpreted by me (1pt. min.). @ -None done What testing was considered but not performed or refused? (CT, X-rays, U/S, labs)? Why? @ -None What meds were considered but not given or refused? Why? @ -None Did you discuss the management of the patient with other professionals (professionals i.e. , PA, AVIONICS SUPERVISOR, lab, RT, psych nurse, social media specialist, activity leader, teacher, admitting officer, case management rn)? Give summary @ -Spoke with Dr. Chandler who accepts admission. She requested consults to infectious disease and vascular surgery Was smoking cessation discussed for >3mins.? @ -No Was critical care preformed (if so, how long)? @ -No Were there social determinants of health that impacted care today? How? (Homelessness, low income, unemployed, alcoholism, drug addiction, transportation, low edu. Level, literacy, decrease access to med. care, long term, rehab)? @ -No Was there de-escalation of care discussed even if they declined (Discuss DNR or withdrawal of care, Hospice)? DNR status @ -No What co-morbidities impacted this encounter? (DM, HTN, Smoking, COPD, CAD, Cancer, CVA, ARF, Chemo, Hep., AIDS, mental health diagnosis, sleep apnea, morbid obesity)? @ -None Was patient admitted / discharged? Hospital course, mention meds given and route, prescriptions, significant lab abnormalities, going to OR and other pertinent info. @ -73-year-old male with chief complaint of worsening wound to left middle toe. X-rays positive for osteomyelitis. Patient is treated with vancomycin and ceftriaxone. He will be admitted for further testing and management. Consults placed to infectious disease and vascular surgery. Patient is agreeable with this plan. I discussed this case with my attending Dr. Ramon Undiagnosed new problem with uncertain prognosis? @ -No Drug Therapy requiring intensive monitoring for toxicity (Heparin, Nitro, Insulin, Cardizem)? @ -No Were any procedures done? @ -No Diagnosis/symptom? @ -Osteomyelitis Acute, or Chronic, or Acute on Chronic? @ -Acute Uncomplicated (without systemic symptoms) or Complicated (systemic symptoms)? @ -Complicated Side effects of treatment? @ -No Exacerbation, Progression, or Severe Exacerbation? @ -No Poses a threat to life or bodily function? How? (Chest pain, USA, RI, pneumonia, PE, COPD, DKA, ARF, appy, cholecystitis, CVA, Diverticulitis, Homicidal, Suic idal, threat to staff... and all critical care pts) @ -Yes - Lab Data Result diagrams: 06/28/24 03:04 06/28/24 03:04 Lab Results 06/25/24 06/25/24 06/25/24 Range/Units 20:01 20:01 20:01 WBC 9.2 (3.8-10.6) k/uL RBC 3.77 L (4.30-5.90) m/uL Hgb 12.3 L (13.0-17.5) gm/dL Hct 37.0 L (39.0-53.0) % MCV 98.0 (80.0-100.0) fL MCH 32.7 (25.0-35.0) pg MCHC 33.4 (31.0-37.0) g/dL RDW 14.8 (11.5-15.5) % Plt Count 160 (150-450) k/uL MPV 8.4 Neutrophils % 63 % Lymphocytes % 17 % Monocytes % 12 % Eosinophils % 4 % Basophils % 0 % Neutrophils # 5.8 (1.3-7.7) k/uL Lymphocytes # 1.6 (1.0-4.8) k/uL Monocytes # 1.1 H (0-1.0) k/uL Eosinophils # 0.4 (0-0.7) k/uL Basophils # 0.0 (0-0.2) k/uL PT (10.0-12.5) sec INR (<1.2) APTT (22.0-30.0) sec Sodium 137 (137-145) mmol/L Potassium 5.4 H (3.5-5.1) mmol/L Chloride 102 (98-107) mmol/L Carbon Dioxide 26 (22-30) mmol/L Anion Gap 9 mmol/L BUN 34 H (9-20) mg/dL Creatinine 1.37 H (0.66-1.25) mg/dL Est GFR (CKD-EPI)AfAm 58 (>60 ml/min/1.73 sqM) Est GFR (CKD-EPI)NonAf 50 (>60 ml/min/1.73 sqM) Glucose 76 (74-99) mg/dL Plasma Lactic Acid Steven 0.7 (0.7-2.0) mmol/L Calcium 9.7 (8.4-10.2) mg/dL Total Bilirubin 1.1 (0.2-1.3) mg/dL AST 48 (17-59) U/L ALT 75 H (4-49) U/L Alkaline Phosphatase 89 (38-126) U/L C-Reactive Protein 1.5 H (<1.0) mg/dL Total Protein 8.1 (6.3-8.2) g/dL Albumin 4.6 (3.5-5.0) g/dL Influenza Type A (PCR) (Not Detectd) Influenza Type B (PCR) (Not Detectd) RSV (PCR) (Not Detectd) SARS-CoV-2 (PCR) (Not Detectd) 06/25/24 06/25/24 Range/Units 20:01 20:51 WBC (3.8-10.6) k/uL RBC (4.30-5.90) m/uL Hgb (13.0-17.5) gm/dL Hct (39.0-53.0) % MCV (80.0-100.0) fL MCH (25.0-35.0) pg MCHC (31.0-37.0) g/dL RDW (11.5-15.5) % Plt Count (150-450) k/uL MPV Neutrophils % % Lymphocytes % % Monocytes % % Eosinophils % % Basophils % % Neutrophils # (1.3-7.7) k/uL Lymphocytes # (1.0-4.8) k/uL Monocytes # (0-1.0) k/uL Eosinophils # (0-0.7) k/uL Basophils # (0-0.2) k/uL PT 13.5 H (10.0-12.5) sec INR 1.3 H (<1.2) APTT 34.4 H (22.0-30.0) sec Sodium (137-145) mmol/L Potassium (3.5-5.1) mmol/L Chloride (98-107) mmol/L Carbon Dioxide (22-30) mmol/L Anion Gap mmol/L BUN (9-20) mg/dL Creatinine (0.66-1.25) mg/dL Est GFR (CKD-EPI)AfAm (>60 ml/min/1.73 sqM) Est GFR (CKD-EPI)NonAf (>60 ml/min/1.73 sqM) Glucose (74-99) mg/dL Plasma Lactic Acid Steven (0.7-2.0) mmol/L Calcium (8.4-10.2) mg/dL Total Bilirubin (0.2-1.3) mg/dL AST (17-59) U/L ALT (4-49) U/L Alkaline Phosphatase (38-126) U/L C-Reactive Protein (<1.0) mg/dL Total Protein (6.3-8.2) g/dL Albumin (3.5-5.0) g/dL Influenza Type A (PCR) Not Detected (Not Detectd) Influenza Type B (PCR) Not Detected (Not Detectd) RSV (PCR) Not Detected (Not Detectd) SARS-CoV-2 (PCR) Not Detected (Not Detectd) Disposition Clinical Impression: Osteomyelitis Disposition: ADMITTED IP TO THIS HOSP Condition: Stable Time of Disposition: 21:23
--- NOTE | 2024-06-25 19:34 | XR ---
EXAMINATION TYPE: XR toes LT DATE OF EXAM: 06/25/2024 7:12 PM COMPARISON: 05/25/2024 CLINICAL INDICATION: Male, 73 years old with history of toe infection; PHH, pain TECHNIQUE: XR toes LT examined in the AP, oblique, and lateral projections. FINDINGS/IMPRESSION: Soft tissue swelling of the third digit with increased lucency of the distal aspect of the distal pha lanx concerning for osteomyelitis.. No evidence of fracture. [facility], , 06/25/2024 7:32 PM
[2024-06-25] MEDS ORDERED: VANCOMYCIN IV PER PHARMACY 1 EACH MISC MISCELLANE PRN (20:08)
[2024-06-25 20:27] LABS: Basophils % (A) 0 %; Eosinophils # (A) 0.4 k/uL (0-0.7); Eosinophils % (A) 4 %; HGB 12.3 gm/dL (13.0-17.5); Lymphocytes # (A) 1.6 k/uL (1.0-4.8); Lymphocytes % (A) 17 %; MCH 32.7 pg (25.0-35.0); MCHC 33.4 g/dL (31.0-37.0); Mean Platelet Volume 8.4; Monocytes # (A) 1.1 k/uL (0-1.0); Monocytes % (A) 12 %; Neutrophils # (A) 5.8 k/uL (1.3-7.7); Neutrophils % (A) 63 %; Platelet Count 160 k/uL (150-450); RBC 3.77 m/uL (4.30-5.90); RDW 14.8 % (11.5-15.5); WBC 9.2 k/uL (3.8-10.6)
[2024-06-25 20:45] LABS: ALT 75 U/L (4-49); AST 48 U/L (17-59); African American GFR (CKD) 58 (>60 ml/min/1.73 sqM); Albumin 4.6 g/dL (3.5-5.0); Alkaline Phosphatase 89 U/L (38-126); Anion Gap 9 mmol/L; Blood Urea Nitrogen 34 mg/dL (9-20); C Reactive Protein 1.5 mg/dL (<1.0); Calcium 9.7 mg/dL (8.4-10.2); Carbon Dioxide 26 mmol/L (22-30); Chloride 102 mmol/L (98-107); Glucose 76 mg/dL (74-99); INR 1.3 (<1.2); Non-African American GFR(CKD) 50 (>60 ml/min/1.73 sqM); Partial Thromboplastin Time 34.4 sec (22.0-30.0); Potassium 5.4 mmol/L (3.5-5.1); Prothrombin Time 13.5 sec (10.0-12.5); Sodium 137 mmol/L (137-145); Total Bilirubin 1.1 mg/dL (0.2-1.3); Total Protein 8.1 g/dL (6.3-8.2)
[2024-06-25] MEDS ORDERED: MORPHINE SULFATE 4 MG/ML SYRINGE IV PRN (21:16)
[2024-06-25] MEDS ORDERED: NALOXONE 0.4 MG/ML 1 ML VIAL IV PRN (21:16)
[2024-06-25 21:30] LABS: Influenza A Not Detected (Not Detectd); Influenza B Not Detected (Not Detectd); RSV Not Detected (Not Detectd)
[2024-06-25] MEDS: SODIUM CHLORIDE 0.9% 1,000 ML IV SCH (22:47)
[2024-06-26] MEDS: VANCOMYCIN 1,500 MG in SODIUM CHLORIDE 0.9% 500 ML 500 ML IVPB ONE (00:41)
[2024-06-26] MEDS: VANCOMYCIN 1,500 MG in SODIUM CHLORIDE 0.9% 500 ML 500 ML IVPB STA (00:42)
[2024-06-26] MEDS: ALBUTEROL NEB (CONC) 2.5 MG/0.5 ML INHALATION ONE (02:24)
[2024-06-26 06:50] LABS: Glucose,Whole Blood 89 mg/dL (70-110)
[2024-06-26 11:38] LABS: Glucose,Whole Blood 95 mg/dL (70-110)
--- NOTE | 2024-06-26 11:58 | P.HPIM ---
History of Present Illness H&P Date: 06/26/24 Chief Complaint: Diabetic foot ulcer infection and cellulitis Carlos Alberto a 73-year-old male well-known to me. He is a type II diabetic that is been fairly well-controlled. I have been seeing also at the wound center along with the office. The wound center treatment has been for diabetic foot ulcer to one of his right toes. I see with wound center debriding him on , F ebruary 13. His toe looked normal at that time. He reports home care came and change dressing on Thursday morning. He indicates they said it looked good. He reports Thursday night and Thursday his toe began swelling and becoming red and it became swelling up his foot. It was significant, they contacted the on-call pager. I spoke with his daughter and sent him emergency room. He received Rocephin and vancomycin emergency room. Labs were drawn. Other than a hyperkalemia and mild chronic renal failure they looked normal. X-ray of the toe showed soft tissue swelling of the third digit with increased lucency concerning for osteomyelitis. He is now resting comfortably in his hospital bed. He denies any chest pains pressures or shortness of breath. He has an extensive cardiac history as well. Does not have any symptoms or issues cardiac hurt at this time. Review of Systems All systems: negative Past Medical History Past Medical History: Atrial Fibrillation, Diabetes Mellitus, Hyperlipidemia, Sleep Apnea/CPAP/BIPAP Additional Past Medical History / Comment(s): C PAP MACHINE, neuropathy History of Any Multi-Drug Resistant Organisms: None Reported Past Surgical History: Cardiac Ablation, Joint Replacement, Pacemaker Additional Past Surgical History / Comment(s): RIGHT KNEE REPLACEMENT X3 Past Anesthesia/Blood Transfusion Reactions: No Reported Reaction Type of Cardiac Device: Permanent Pacemaker Device Placement Date:: 02-21-2013 Past Psychological History: No Psychological Hx Reported Smoking Status: Former smoker Past Alcohol Use History: Occasional Additional Past Alcohol Use History / Comment(s): STARTED SMOKING AT AGE 11 QUIT SMOKING 1987 SMOKED 1-2PPD Past Drug Use History: None Reported - Past Family History Mother Family Medical History: No Reported History Father Family Medical History: Pneumonia Additional Family Medical History / Comment(s): "heart problems" Medications and Allergies Home Medications Medication Instructions Recorded Confirmed Type Atorvastatin [Lipitor] 80 mg PO DAILY 03/31/14 06/26/24 History allopurinoL [Zyloprim] 100 mg PO BID 03/31/14 06/26/24 History lisinopriL [Zestril] 5 mg PO HS 03/31/14 06/26/24 History Furosemide [Lasix] 20 mg PO Q48H 01/22/16 06/26/24 History metFORMIN HCL [Glucophage] 500 mg PO BID 01/22/16 06/26/24 History Rivaroxaban [Xarelto] 20 mg PO HS 05/06/16 06/26/24 History Pregabalin [Lyrica] 100 mg PO BID 07/17/22 06/26/24 History Cinnamon Bark [Cinnamon] 1,000 mg PO BID 06/26/24 06/26/24 History Dronedarone [Multaq] 400 mg PO AC-BID 06/26/24 06/26/24 History Omeprazole [PriLOSEC] 20 mg PO Q48H 06/26/24 06/26/24 History Semaglutide [Ozempic] 4 mg SQ WEEKLY 06/26/24 06/26/24 History Allergies Allergy/AdvReac Type Severity Reaction Status Date / Time Penicillins Allergy Rash/Hives Verified 06/25/24 18:45 Physical Exam Vitals: Vital Signs Temp Pulse Pulse Resp BP BP Pulse Ox 06/26/24 07:27 98.7 F 60 16 127/68 96 06/26/24 02:48 98.5 F 60 17 132/75 97 06/25/24 23:13 97.8 F 83 129/73 98 06/25/24 22:29 60 18 120/78 97 06/25/24 18:40 98.2 F 66 16 134/76 97 Intake and Output 06/25/24 06/26/24 06/26/24 22:59 06:59 14:59 Other: # Voids 2 Weight 81.647 kg 81.647 kg GENERAL: Well-appearing, well-nourished and in no acute distress. HEAD: Atraumatic, normocephalic. EYES: Pupils equal round and reactive to light, extraocular movements intact, sclera anicteric, conjunctiva are normal. ENT:nares patent, oropharynx clear without exudates. Moist mucous membranes. NECK: Normal range of motion, supple without lymphadenopathy or JVD, no thyromegaly LUNGS: Breath sounds clear to auscultation bilaterally and equal. No wheezes rales or rhonchi. HEART: Regular rate and rhythm without murmurs, rubs or gallops.S1S2 Normal ABDOMEN: Soft, nontender, normoactive bowel sounds. No guarding, no rebound. No masses appreciated. EXTREMITIES: To the right #3 toe there is edema and erythema some nail dystrophy. There is a diabetic foot ulcer to the plantar surface of the tip of the toe measuring approximately 1 x 0.5 cm. It is dry with crust overlying this area. NEUROLOGICAL: Cranial nerves II through XII grossly intact. Normal speech, normal gait. PSYCH: Normal mood, normal affect. SKIN: Warm, Dry, normal turgor, no rashes or lesions noted. Results CBC & Chem 7: 06/25/24 20:06/26/24 01:39 Labs: Abnormal Lab Results - Last 24 Hours (Table) 06/25/24 06/25/24 06/25/24 Range/Units 20:01 20:01 20:01 RBC 3.77 L (4.30-5.90) m/uL Hgb 12.3 L (13.0-17.5) gm/dL Hct 37.0 L (39.0-53.0) % Monocytes # 1.1 H (0-1.0) k/uL PT 13.5 H (10.0-12.5) sec INR 1.3 H (<1.2) APTT 34.4 H (22.0-30.0) sec Potassium 5.4 H (3.5-5.1) mmol/L BUN 34 H (9-20) mg/dL Creatinine 1.37 H (0.66-1.25) mg/dL ALT 75 H (4-49) U/L C-Reactive Protein 1.5 H (<1.0) mg/dL Comments: Foot x-ray reviewed Thrombosis Risk Factor Assmnt - DVT/VTE Prophylaxis DVT/VTE Prophylaxis: Pharmacologic Prophylaxis ordered (Will resume his home medication of Xarelto) - Choose All That Apply Any of the Below Risk Factors Present?: Yes Each Factor Represents 1 point: Obesity (BMI >25) Other Risk Factors: Yes Each Risk Factor Represents 3 Points: Age 75 years or older Other congenital or acquired thrombophilia - If yes, enter type in comment: No Thrombosis Risk Factor Assessment Total Risk Factor Score: 4 Thrombosis Risk Factor Assessment Level: Moderate Risk Assessment and Plan (1) Osteomyelitis Current Visit: Yes Status: Acute Code(s): M86.9 - OSTEOMYELITIS, UNSPECIFIED SNOMED Code(s): 89444382 (2) Non-pressure chronic ulcer of other part of right foot with fat layer exposed Current Visit: Yes Status: Acute Code(s): L97.512 - NON-PRS CHRONIC ULCER OTH PRT RIGHT FOOT W FAT LAYER EXPOSED SNOMED Code(s): 02972619976122224 (3) Type 2 diabetes mellitus with foot ulcer Current Visit: Yes Status: Acute Code(s): E11.621 - TYPE 2 DIABETES MELLITUS WITH FOOT ULCER; L97.509 - NON-PRESSURE CHRONIC ULCER OTH PRT UNSP FOOT W UNSP SEVERITY SNOMED Code(s): 6774777163289 (4) Type 2 diabetes mellitus with other circulatory complications Current Visit: Yes Status: Acute Code(s): E11.59 - TYPE 2 DIABETES MELLITUS WITH OTH CIRCULATORY COMPLICATIONS SNOMED Code(s): 44973149 (5) Type 2 diabetes mellitus with other specified complication Current Visit: Yes Status: Acute Code(s): E11.69 - TYPE 2 DIABETES MELLITUS WITH OTHER SPECIFIED COMPLICATION SNOMED Code(s): 02295555 (6) Atrial fibrillation Current Visit: Yes Status: Acute Code(s): I48.91 - UNSPECIFIED ATRIAL FIBRILLATION SNOMED Code(s): 41868474 (7) Gout Current Visit: No Status: Chronic Code(s): M10.9 - GOUT, UNSPECIFIED SNOM ED Code(s): 42498139 (8) Hyperlipidemia Current Visit: No Status: Chronic Code(s): E78.5 - HYPERLIPIDEMIA, UNSPECIFIED SNOMED Code(s): 36648587 (9) Hypertension Current Visit: No Status: Chronic Code(s): I10 - ESSENTIAL (PRIMARY) HYPERTENSION SNOMED Code(s): 65071909 (10) Type 2 diabetes mellitus with diabetic polyneuropathy Current Visit: Yes Status: Acute Code(s): E11.42 - TYPE 2 DIABETES MELLITUS WITH DIABETIC POLYNEUROPATHY SNOMED Code(s): 617305202 (11) Anticoagulant long-term use Current Visit: No Status: Chronic Code(s): Z79.01 - HALF-WAY (CURRENT) USE OF ANTICOAGULANTS SNOMED Code(s): 045629799 Plan: I will obtain a tissue culture bedside. He is already had the left labs for blood cultures. He will remain on vancomycin. Will consult infectious disease. Will consult vascular surgery in case further surgeries to be done. Reorder his home medications. NovoLog scale Accu-Cheks. Check labs CBC CMP ESR and CRP in the a.m. Cleanse the wound with Dakin's, apply Santyl daily. Repeat labs in a.m., he will be reevaluated next 24 hours.
[2024-06-26] MEDS: DRONEDARONE 400 MG TAB PO SCH (12:42)
[2024-06-26] MEDS: metFORMIN 500 MG TAB PO SCH (12:42)
[2024-06-26] MEDS: allopurinoL 100 MG TAB PO SCH (12:42)
[2024-06-26] MEDS: FUROSEMIDE 20 MG TAB PO SCH (12:42)
[2024-06-26] MEDS: PANTOPRAZOLE 40 MG TABLET PO SCH (12:42)
[2024-06-26] MEDS: ATORVASTATIN 80 MG TAB PO SCH (12:42)
[2024-06-26] MEDS: PREGABALIN 100 MG CAP PO SCH (12:42)
[2024-06-26] MEDS: INSULIN ASPART (NovoLOG) 100 UNIT/ML VIAL SQ SCH (12:45)
[2024-06-26] MEDS: SODIUM HYPOCHLORITE 0.25% 480 ML BOT MISCELLANE SCH (14:14)
[2024-06-26] MEDS: COLLAGENASE 250 UNIT/GM OINTMENT 30 GM TUBE TOPICAL SCH (14:15)
[2024-06-26] MEDS: VANCOMYCIN 1,500 MG in SODIUM CHLORIDE 0.9% 500 ML 500 ML IVPB SCH (16:19)
[2024-06-26 16:30] LABS: African American GFR (CKD) 71 (>60 ml/min/1.73 sqM); Non-African American GFR(CKD) 62 (>60 ml/min/1.73 sqM)
[2024-06-26 16:41] LABS: Glucose,Whole Blood 90 mg/dL (70-110)
[2024-06-26 20:55] LABS: Glucose,Whole Blood 110 mg/dL (70-110)
[2024-06-26] MEDS: lisinopriL 5 MG TAB PO SCH (21:47)
[2024-06-26] MEDS: RIVAROXABAN 20 MG TAB PO SCH (21:47)
--- NOTE | 2024-06-26 23:01 | P.CONS ---
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 however over the weekend noticed to have increasing swelling to the left third toe with some extension to the dorsal aspect of the left foot patient did have diabetic neuropathy to 10 significant pain associated with it or any foul-smelling drainage and denies high-grade fever or any chills with the symptoms the patient presented to hospital on arrival to the ER the patient was afebrile no fever have recorded subsequently patient was not tachycardic hypotensive or hypoxic patient did have white count of 9.2 creatinine 1.3 7 repeat is 1.16 influenza RSV COVID testing was negative patient did have x-ray of the toe we did show some soft tissue swelling but no bony abnormality patient did have a debridement of the wound cultures has been obtained which are currently pending patient was started on vancomycin infectious he was consulted regarding possible osteomyelitis Review of Systems Positive point and negatives has been mentioned in the HPI, complete review of systems was performed and all other systems are negative Past Medical History Past Medical History: Atrial Fibrillation, Diabetes Mellitus, Hyperlipidemia, Sleep Apnea/CPAP/BIPAP Additional Past Medical History / Comment(s): C PAP MACHINE, neuropathy History of Any Multi-Drug Resistant Organisms: None Reported Past Surgical History: Cardiac Ablation, Joint Replacement, Pacemaker Additional Past Surgical History / Comment(s): RIGHT KNEE REPLACEMENT X3 Past Anesthesia/Blood Transfusion Reactions: No Reported Reaction Type of Cardiac Device: Permanent Pacemaker Device Placement Date:: 02-21-2013 Past Psychological History: No Psychological Hx Reported Smoking Status: Former smoker Past Alcohol Use History: Occasional Additional Past Alcohol Use History / Comment(s): STARTED SMOKING AT AGE 11 QUIT SMOKING 1987 SMOKED 1-2PPD Past Drug Use History: None Reported - Past Family History Mother Family Medical History: No Reported History Father Family Medical History: Pneumonia Additional Family Medical History / Comment(s): "heart problems" Medications and Allergies Home Medications Medication Instructions Recorded Confirmed Type Atorvastatin [Lipitor] 80 mg PO DAILY 03/31/14 06/26/24 History allopurinoL [Zyloprim] 100 mg PO BID 03/31/14 06/26/24 History lisinopriL [Zestril] 5 mg PO HS 03/31/14 06/26/24 History Furosemide [Lasix] 20 mg PO Q48H 01/22/16 06/26/24 History metFORMIN HCL [Glucophage] 500 mg PO BID 01/22/16 06/26/24 History Rivaroxaban [Xarelto] 20 mg PO HS 05/06/16 06/26/24 History Cinnamon Bark [Cinnamon] 1,000 mg PO BID 06/26/24 06/26/24 History Collagenase [Santyl Ointment] 1 applic TOPICAL DAILY 06/26/24 06/26/24 History Dronedarone [Multaq] 400 mg PO AC-BID 06/26/24 06/26/24 History Omeprazole [PriLOSEC] 20 mg PO Q48H 06/26/24 06/26/24 History Pregabalin [Lyrica] 100 mg PO BID 06/26/24 06/26/24 History Semaglutide [Ozempic] 1 mg SQ TU 06/26/24 06/26/24 History Sodium Chloride 0.9% Irrigatio 1 dose TOPICAL DAILY 06/26/24 06/26/24 History [Saline 0.9% Irrigation Bottle] Allergies Allergy/AdvReac Type Severity Reaction Status Date / Time Penicillins Allergy Rash/Hives Verified 06/26/24 14:16 Physical Exam Vitals: Vital Signs Temp Pulse Pulse Resp BP BP Pulse Ox 06/26/24 07:27 98.7 F 60 16 127/68 96 06/26/24 02:48 98.5 F 60 17 132/75 97 06/25/24 23:13 97.8 F 83 129/73 98 06/25/24 22:29 60 18 120/78 97 06/25/24 18:40 98.2 F 66 16 134/76 97 Intake and Output 06/25/24 06/26/24 06/26/24 22:59 06:59 14:59 Other: # Voids 2 Weight 81.647 kg 81.647 kg GENERAL DESCRIPTION: Elderly male lying in bed, no distress. No tachypnea or accessory muscle of respiration use. HEENT: Shows Pallor , no scleral icterus. Oral mucous membrane is dry. NECK: Trachea central, no thyromegaly. LUNGS: Unlabored breathing. Clear to auscultation anteriorly. No wheeze or crackle. HEART: S1, S2, regular rate and rhythm. No loud murmur ABDOMEN: Soft, no tenderness , guarding or rigidity, no organomegaly EXTREMITIES: Left third toe is swollen and right with ulceration on the tip no slough tissue foul-smelling drainage SKIN: No rash, no masses palpable. NEUROLOGICAL: The patient is awake, alert, oriented x3, mood and affect normal. Results CBC & Chem 7: 06/28/24 03:04 06/28/24 03:04 Labs: Abnormal Lab Results - Last 24 Hours (Table) 06/25/24 06/25/24 06/25/24 Range/Units 20:01 20:01 20:01 RBC 3.77 L (4.30-5.90) m/uL Hgb 12.3 L (13.0-17.5) gm/dL Hct 37.0 L (39.0-53.0) % Monocytes # 1.1 H (0-1.0) k/uL PT 13.5 H (10.0-12.5) sec INR 1.3 H (<1.2) APTT 34.4 H (22.0-30.0) sec Potassium 5.4 H (3.5-5.1) mmol/L BUN 34 H (9-20) mg/dL Creatinine 1.37 H (0.66-1.25) mg/dL ALT 75 H (4-49) U/L C-Reactive Protein 1.5 H (<1.0) mg/dL Assessment and Plan (1) Diabetic foot infection Current Visit: Yes Status: Acute Code(s): E11.628 - TYPE 2 DIABETES MELLITUS WITH OTHER SKIN COMPLICATIONS; L08.9 - LOCAL INFECTION OF THE SKIN AND SUBCUTANEOUS TISSUE, UNSP SNOMED Code(s): 935153504 (2) Penicillin allergy Current Visit: Yes Status: Acute Code(s): Z88.0 - ALLERGY STATUS TO PENICILLIN SNOMED Code(s): 11495786 (3) Type 2 diabetes mellitus with foot ulcer Current Visit: Yes Status: Acute Code(s): E11.621 - TYPE 2 DIABETES MELLITUS WITH FOOT ULCER; L97.509 - NON-PRESSURE CHRONIC ULCER OTH PRT UNSP FOOT W UNSP SEVERITY SNOMED Code(s): 0294024397948 Plan: 1patient presented hospital with increasing swelling and redness to the left third toe in this patient who did have a callus on the tip of the third toe which has been debrided now presenting with a cellulitis x-ray did not show any bony changes suggestive of osteomyelitis likely from gram-positive skin verna 2-penicillin allergy that would limit the number of antibiotics safe to use 3-we will wait for the culture and inflammatory markers to be finalized 4-patient will be treated with vancomycin pharmacy to dose target trough of 15 while watching kidney function and Vanco trough closely Family the bedside question answered We will follow on clinical condition and cultures to further adjust medication if needed Thank you for this consultation we will follow the patient along with you Dictation was produced using [employer] dictation software. please excuse any grammatical, word or spelling errors. Time with Patient: Greater than 30
[2024-06-27 06:07] LABS: Glucose,Whole Blood 90 mg/dL (70-110)
--- NOTE | 2024-06-27 08:44 | P.GSCN ---
History of Present Illness Consult date: 06/27/24 Reason for Consult: Osteomyelitis Requesting physician: Cameron Chandler History of present illness: This a pleasant 73-year-old male with past medical history including insulin- dependent diabetes mellitus, atrial fibrillation status post ablation and permanent pacemaker, gout, hyperlipidemia and sleep apnea who presented to the emergency department advised by his primary care physician Dr. Chandler for concerns for infected toe. Patient reportedly had a callus to his left third toe which he had seen Dr. Chandler for and he had shaved the callus off about a month ago. He has been following in the wound care center and was seen last week for wound care which she states the toe reportedly had looked fine. He also has home care and states he was seen on Thursday for wound care for his toe again that morning they had stated everything looked fine however by the evening patient states he started having some throbbing in his toe and had looked to see that it was red and swollen. He had called Dr. Chandler's office and was advised to go to the emergency department. He had an x-ray of the left foot with the third toe showing soft tissue swelling and concerning for osteomyelitis. He was admitted and started on IV antibiotics with consultation to infectious disease and vascular surgery. He has been afebrile, states he has no pain in his foot. States that he has diabetic neuropathy and no real feeling. He no history of other previous wounds. He denies any fevers, chills, abdominal pain, nausea or vomiting. Review of Systems A 14 point review systems was completed all pertinent positives and negatives as stated in the HPI. Past Medical History Past Medical History: Atrial Fibrillation, Diabetes Mellitus, Hyperlipidemia, Sleep Apnea/CPAP/BIPAP Additional Past Medical History / Comment(s): C PAP MACHINE, neuropathy History of Any Multi-Drug Resistant Organisms: None Reported Past Surgical History: Cardiac Ablation, Joint Replacement, Pacemaker Additional Past Surgical History / Comment(s): RIGHT KNEE REPLACEMENT X3 Past Anesthesia/Blood Transfusion Reactions: No Reported Reaction Type of Cardiac Device: Permanent Pacemaker Device Placement Date:: 02-21-2013 Past Psychological History: No Psychological Hx Reported Smoking Status: Former smoker Past Alcohol Use History: Occasional Additional Past Alcohol Use History / Comment(s): STARTED SMOKING AT AGE 11 QUIT SMOKING 1988 SMOKED 1-2PPD Past Drug Use History: None Reported - Past Family History Mother Family Medical History: No Reported History Father Family Medical History: Pneumonia Additional Family Medical History / Comment(s): "heart problems" Medications and Allergies Home Medications Medication Instructions Recorded Confirmed Type Atorvastatin [Lipitor] 80 mg PO DAILY 03/31/14 06/26/24 History allopurinoL [Zyloprim] 100 mg PO BID 03/31/14 06/26/24 History lisinopriL [Zestril] 5 mg PO HS 03/31/14 06/26/24 History Furosemide [Lasix] 20 mg PO Q48H 01/22/16 06/26/24 History metFORMIN HCL [Glucophage] 500 mg PO BID 01/22/16 06/26/24 History Rivaroxaban [Xarelto] 20 mg PO HS 05/06/16 06/26/24 History Cinnamon Bark [Cinnamon] 1,000 mg PO BID 06/26/24 06/26/24 History Collagenase [Santyl Ointment] 1 applic TOPICAL DAILY 06/26/24 06/26/24 History Dronedarone [Multaq] 400 mg PO AC-BID 06/26/24 06/26/24 History Omeprazole [PriLOSEC] 20 mg PO Q48H 06/26/24 06/26/24 History Pregabalin [Lyrica] 100 mg PO BID 06/26/24 06/26/24 History Semaglutide [Ozempic] 1 mg SQ TU 06/26/24 06/26/24 History Sodium Chloride 0.9% Irrigatio 1 dose TOPICAL DAILY 06/26/24 06/26/24 History [Saline 0.9% Irrigation Bottle] Allergies Allergy/AdvReac Type Severity Reaction Status Date / Time Penicillins Allergy Rash/Hives Verified 06/26/24 14:16 Surgical - Exam Vital Signs Temp Pulse Resp BP Pulse Ox 98.2 F 66 16 134/76 97 06/25/24 18:40 06/25/24 18:40 06/25/24 18:40 06/25/24 18:40 06/25/24 18:40 General appearance: The patient is alert, oriented, appears in no acute distress. HET: Head is normocephalic and atraumatic. Pupils are equal and reactive. Neck: Supple. Heart: Regular. Lungs: Equal expansion, normal respiratory effort. Abdomen: Soft, nondistended. Extremities: Left foot with some minimal swelling. Warm to the touch with good capillary refill. Palpable bilateral PT and DP pulses. Patient has thick toenails bilaterally. Left foot third toe with diabetic ulcer to the plantar aspect of the distal tip without any drainage or redness surrounding it. Third toe has some minimal erythema and swelling to dorsal aspect. Neurological: No focal deficits. Strength and sensation are grossly intact. Results - Labs 06/27/24 02:32 06/27/24 02:32 Diabetes panel 06/26/24 Range/Units 14:58 Creatinine 1.16 (0.66-1.25) mg/dL Pituitary panel 06/26/24 Range/Units 14:58 Creatinine 1.16 (0.66-1.25) mg/dL Adrenal panel 06/26/24 Range/Units 14:58 Creatinine 1.16 (0.66-1.25) mg/dL - Imaging Comments: Left toe x-ray. Reports soft tissue swelling of the third digit with increased lucency at the distal aspect of the distal phalanx concerning for osteomyelitis. No evidence of fracture. Assessment and Plan Assessment: 1. Left third toe osteomyelitis 2. Status post previous callus removal 3. Diabetes mellitus 4. Diabetic neuropathy 4. Atrial fibrillation with permanent pacemaker Plan: 1. Continue local wound care as ordered 2. Continue antibiotics per recommendations from infectious disease 3. No plans at this time for any vascular surgical intervention Thank you for this consultation, we will continue to follow. The impression and plan of care has been dictated as directed. Dr. Green I performed a history and examination of this patient, discussed the same with the dictator. I agree with the dictator's note ,documented as a scribe. Any additional findings or plans will be noted.
[2024-06-27 08:58] LABS: Basophils # (A) 0.04 X 10*3/uL (0.00-0.10); Basophils % (A) 0.6 %; Eosinophils # (A) 0.44 X 10*3/uL (0.04-0.35); Eosinophils % (A) 6.1 %; HCT 33.9 % (39.6-50.0); HGB 11.2 g/dL (13.0-17.0); Lymphocytes # (A) 1.47 X 10*3/uL (0.90-5.00); Lymphocytes % (A) 20.2 %; MCH 32.1 pg (27.0-32.0); MCV 97.1 FL (80.0-97.0); Mean Platelet Volume 11.4 FL (9.5-12.2); Monocytes # (A) 0.98 X 10*3/uL (0.20-1.00); Monocytes % (A) 13.5 %; NRBC Per 100 WBC 0 X 10*3/uL (0.00-0.01); Neutrophils # (A) 4.32 X 10*3/uL (1.80-7.70); Neutrophils % (A) 59.3 %; Platelet Count 150 X 10*3/uL (140-440); RBC 3.49 X 10*6/uL (4.40-5.60); RDW 15.1 % (11.5-14.5); WBC 7.27 X 10*3/uL (4.50-10.00)
[2024-06-27 09:47] LABS: BUN/Creat Ratio 16.75 Ratio (12.00-20.00); Blood Urea Nitrogen 20.1 mg/dL (9.0-27.0); Calcium 8.7 mg/dL (8.7-10.3); Carbon Dioxide 24.5 mmol/L (21.6-31.8); Chloride 104 mmol/L (96-109); Glucose 104 mg/dL (70-110); Magnesium 1.4 mg/dL (1.5-2.4); Potassium 4.9 mmol/L (3.5-5.5); Sodium 138 mmol/L (135-145)
[2024-06-27 10:44] LABS: Erythrocyte Sedimentation Rate 25 mm/Hr (0-20)
[2024-06-27 10:59] LABS: Glucose,Whole Blood 127 mg/dL (70-110)
--- NOTE | 2024-06-27 12:13 | P.PN ---
Subjective Progress Note Date: 06/27/24 06/26/24 H&P Date: 06/26/24 Chief Complaint: Diabetic foot ulcer infection and cellulitis Carlos Alberto a 73-year-old male well-known to me. He is a type II diabetic that is been fairly well-controlled. I have been seeing also at the wound center along with the office. The wound center treatment has been for diabetic foot ulcer to one of his right toes. I see with wound center debriding him on June 23. His toe looked normal at that time. He reports home care came and change dressing on Thursday morning. He indicates they said it looked good. He reports Thursday night and Thursday his toe began swelling and becoming red and it became swelling up his foot. It was significant, they contacted the on-call pager. I spoke with his daughter and sent him emergency room. He received Rocephin and vancomycin emergency room. Labs were drawn. Other than a hyperkalemia and mild chronic renal failure they looked normal. X-ray of the toe showed soft tissue swelling of the third digit with increased lucency concerning for osteomyelitis. He is now resting comfortably in his hospital bed. He denies any chest pains pressures or shortness of breath. He has an extensive cardiac history as well. Does not have any symptoms or issues cardiac hurt at this time. 06/27/2024 penicillin allergy, maintained on vancomycin as per ID. Renal function near baseline, creatinine 1.2. blood and tissue cultures finalizing. Afebrile, normal WBC. CRP increased to 2.20, previously 1.5. Denies nausea, vomiting or diarrhea. Denies abdominal pain. Denies foot pain, in a patient with diabetic neuropathy. Denies chest pain, palpitations or shortness of breath. Maintaining O2 sats in the high 90s on room air. Objective - Vital Signs Vital signs: Vital Signs Temp 97.6 F 06/27/24 07:08 Pulse 60 06/27/24 07:08 Resp 06/27/24 07:08 BP 123/66 06/27/24 07:08 Pulse Ox 97 06/27/24 07:08 FiO2 Intake & Output 06/26/24 06/27/24 06/27/24 18:59 06:59 18:59 Other: Voiding Method Toilet # Voids 3 2 - Exam VS: Reviewed GENERAL: Alert and oriented, sitting up in bed, no acute distress. HEENT: Atraumatic, normocephalic. Pupils equal, reactive. Conjunctiva normal. MMM. NECK: Supple,no JVD LUNGS: Unlabored, equal air entry, CTA HEART: Regular rate and rhythm without murmurs, rubs or gallops.S1S2 Normal ABDOMEN: Soft, nontender, normoactive bowel sounds. No guarding. EXTREMITIES: Left foot third toe dressing clean dry and intact. NEUROLOGICAL: Cranial nerves II through XII grossly intact. Strength and sensation grossly intact. SKIN: Warm, Dry, no rashes noted. - Labs CBC & Chem 7: 06/27/24 02:32 06/27/24 02:32 Labs: Abnormal Lab Results - Last 24 Hours (Table) 06/27/24 06/27/24 06/27/24 Range/Units 02: 02:32 10:56 RBC 3.49 L (4.40-5.60) X 10*6/uL Hgb 11.2 L (13.0-17.0) g/dL Hct 33.9 L (39.6-50.0) % MCV 97.1 H (80.0-97.0) FL MCH 32.1 H (27.0-32.0) pg RDW 15.1 H (11.5-14.5) % Eosinophils # 0.44 H (0.04-0.35) X 10*3/uL ESR 25 H (0-20) mm/Hr POC Glucose (mg/dL) 127 H (70-110) mg/dL Magnesium 1.4 L (1.5-2.4) mg/dL C-Reactive Protein 2.20 H (0.00-0.80) mg/dL Assessment and Plan Assessment: (1) Diabetic foot infection, left third toe osteomyelitis Current Visit: Yes Status: Acute Code(s): E11.628 - TYPE 2 DIABETES MELLITUS WITH OTHER SKIN COMPLICATIONS; L08.9 - LOCAL INFECTION OF THE SKIN AND SUBCUTANEOUS TISSUE, UNSP SNOMED Code(s): 145331748 (2) Penicillin allergy Current Visit: Yes Status: Acute Code(s): Z88.0 - ALLERGY STATUS TO PENICILLIN SNOMED Code(s): 26220709 (3) Type 2 diabetes mellitus with foot ulcer Current Visit: Yes Status: Acute Code(s): E11.621 - TYPE 2 DIABETES MELLITUS WITH FOOT ULCER; L97.509 - NON-PRESSURE CHRONIC ULCER OTH PRT UNSP FOOT W UNSP SEVERITY SNOMED Code(s): 9466255677791 (4) atrial fibrillation with permanent pacemaker Plan: Continue on current medication regimen ,monitoring and symptomatic treatment. Continue on antibiotics as per infectious disease. Ongoing monitoring of renal function, Hemoglobin with repeat labs ordered for a.m. no intervention recommended at this time per vascular surgery. Though patient was wearing his offloading boot had been painting, standing for hours. Reinforced at discharge patient to offload foot, will probably be off work for a month until wound heals. The impression and plan of care has been dictated as directed. : I performed a history and examination of this patient, discussed the same with the dictator. I agree with the dictator's note ,documented as a scribe. Any ad ditional findings or plans will be noted.
[2024-06-27] MEDS: MAGNESIUM SULFATE-D5W PMX 1 GM in DEXTROSE/WATER 1 100ML.BAG IVPB SCH (12:19)
[2024-06-27 16:22] LABS: Glucose,Whole Blood 106 mg/dL (70-110)
[2024-06-27 17:03] VITALS: BMI 25.8
[2024-06-27 20:49] LABS: Glucose,Whole Blood 159 mg/dL (70-110)
[2024-06-27] MEDS: ACETAMINOPHEN TAB 325 MG TAB PO PRN (21:32)
[2024-06-28] MEDS: HYDROcodone/APAP 5-325MG 1 EACH TAB PO PRN (00:37)
[2024-06-28 06:23] LABS: Glucose,Whole Blood 95 mg/dL (70-110)
[2024-06-28 08:42] LABS: Blood Urea Nitrogen 15.5 mg/dL (9.0-27.0); Calcium 8.2 mg/dL (8.7-10.3); Carbon Dioxide 23.1 mmol/L (21.6-31.8); Chloride 106 mmol/L (96-109); Glucose 87 mg/dL (70-110); Potassium 4.5 mmol/L (3.5-5.5); Sodium 137 mmol/L (135-145)
[2024-06-28 08:59] LABS: Basophils # (A) 0.04 X 10*3/uL (0.00-0.10); Basophils % (A) 0.6 %; Eosinophils # (A) 0.38 X 10*3/uL (0.04-0.35); Eosinophils % (A) 5.8 %; HCT 31.9 % (39.6-50.0); HGB 10.7 g/dL (13.0-17.0); Lymphocytes # (A) 1.36 X 10*3/uL (0.90-5.00); Lymphocytes % (A) 20.7 %; MCHC 33.5 g/dL (32.0-37.0); MCV 98.5 FL (80.0-97.0); Mean Platelet Volume 11.4 FL (9.5-12.2); Monocytes # (A) 0.83 X 10*3/uL (0.20-1.00); Monocytes % (A) 12.7 %; NRBC Per 100 WBC 0 X 10*3/uL (0.00-0.01); Neutrophils # (A) 3.92 X 10*3/uL (1.80-7.70); Neutrophils % (A) 59.7 %; Platelet Count 150 X 10*3/uL (140-440); RBC 3.24 X 10*6/uL (4.40-5.60); WBC 6.56 X 10*3/uL (4.50-10.00)
[2024-06-28 11:20] LABS: Glucose,Whole Blood 101 mg/dL (70-110)
--- NOTE | 2024-06-28 12:42 | P.PN ---
Subjective Progress Note Date: 06/28/24 Principal diagnosis: Osteomyelitis Patient is seen and examined today as a follow-up for osteomyelitis of left toe. States he has no pain, but of course patient does suffer from diabetic neuropathy. Redness improving. He has been afebrile. He denies any nausea or vomiting. Preliminary wound cultures with presumptive Staph aureus and strep A. Preliminary blood cultures with no growth after 24 hours. Objective - Vital Signs Vital signs: Vital Signs Temp 97.6 F 06/28/24 07:12 Pulse 60 06/28/24 07:12 Resp 18 06/28/24 07:12 BP 107/62 06/28/24 07:12 Pulse Ox 98 06/28/24 07:12 FiO2 Intake & Output 06/27/24 06/28/24 06/28/24 18:59 06:59 18:59 Weight 81.647 kg Other: Voiding Method Toilet # Voids 3 2 # Bowel Movements 1 - Exam General appearance: The patient is alert, oriented, appears in no acute distre ss. HET: Head is normocephalic and atraumatic. Neck: Supple. Abdomen: Soft, nondistended. Extremities: Left foot with some swelling. Warm to the touch with good capillary refill. Palpable bilateral PT and DP pulses. Patient has thick toenails bilaterally. Left foot third toe with diabetic ulcer to the plantar aspect of the distal tip small amount of drainage. Third toe has some minimal erythema and swelling to dorsal aspect. Neurological: No focal deficits. Alert and oriented. - Labs CBC & Chem 7: 06/28/24 03:04 06/28/24 03:04 Labs: Abnormal Lab Results - Last 24 Hours (Table) 06/27/24 06/27/24 06/27/24 Range/Units 02:32 02:32 10:56 RBC (4.40-5.60) X 10*6/uL Hgb (13.0-17.0) g/dL Hct (39.6-50.0) % MCV (80.0-97.0) FL MCH (27.0-32.0) pg RDW (11.5-14.5) % Eosinophils # (0.04-0.35) X 10*3/uL ESR 25 H (0-20) mm/Hr POC Glucose (mg/dL) 127 H (70-110) mg/dL Calcium (8.7-10.3) mg/dL Magnesium 1.4 L (1.5-2.4) mg/dL C-Reactive Protein 2.20 H (0.00-0.80) mg/dL 06/27/24 06/28/24 06/28/24 Range/Units 20:47 03:04 03:04 RBC 3.24 L (4.40-5.60) X 10*6/uL Hgb 10.7 L (13.0-17.0) g/dL Hct 31.9 L (39.6-50.0) % MCV 98.5 H (80.0-97.0) FL MCH 33.0 H (27.0-32.0) pg RDW 15.0 H (11.5-14.5) % Eosinophils # 0.38 H (0.04-0.35) X 10*3/uL ESR (0-20) mm/Hr POC Glucose (mg/dL) 159 H (70-110) mg/dL Calcium 8.2 L (8.7-10.3) mg/dL Magnesium (1.5-2.4) mg/dL C-Reactive Protein (0.00-0.80) mg/dL Microbiology - Last 24 Hours (Table) 06/26/24 11:20 Gram Stain - Preliminary Toe - Left Third Tissue Culture - Preliminary Presumptive Staph aureus Strep A 06/25/24 22:45 Blood Culture - Preliminary Blood Assessment and Plan Assessment: 1. Left third toe osteomyelitis 2. Status post previous callus removal of the left third toe 3. Diabetes mellitus 4. Diabetic neuropathy 4. Atrial fibrillation with permanent pacemaker Plan: 1. Continue local wound care as ordered 2. Continue antibiotics per recommendations from infectious disease 3. No plans at this time for any vascular surgical intervention Thank you for this consultation, we will continue to follow. The impression and plan of care has been dictated as directed. Dr. Pedraza I performed a history and examination of this patient, discussed the same with the dictator. I agree with the dictator's note ,documented as a scribe. Any additional findings or plans will be noted.
[2024-06-28] MEDS ORDERED: Magnesium Replacement Protocol 1 EACH MISC MISCELLANE PRN (14:45)
--- NOTE | 2024-06-28 15:09 | P.PN ---
Subjective Progress Note Date: 06/28/24 06/26/24 H&P Date: 06/26/24 Chief Complaint: Diabetic foot ulcer infection and cellulitis Carlos Alberto a 73-year-old male well-known to me. He is a type II diabetic that is been fairly well-controlled. I have been seeing also at the wound center along with the office. The wound center treatment has been for diabetic foot ulcer to one of his right toes. I see with wound center debriding him on June 23. His toe looked normal at that time. He reports home care came and change dressing on Thursday morning. He indicates they said it looked good. He reports Thursday night and Thursday his toe began swelling and becoming red and it became swelling up his foot. It was significant, they contacted the on-call pager. I spoke with his daughter and sent him emergency room. He received Rocephin and vancomycin emergency room. Labs were drawn. Other than a hyperkalemia and mild chronic renal failure they looked normal. X-ray of the toe showed soft tissue swelling of the third digit with increased lucency concerning for osteomyelitis. He is now resting comfortably in his hospital bed. He denies any chest pains pressures or shortness of breath. He has an extensive cardiac history as well. Does not have any symptoms or issues cardiac hurt at this time. 06/27/2024 penicillin allergy, maintained on vancomycin as per ID. Renal function near baseline, creatinine 1.2. blood and tissue cultures finalizing. Afebrile, normal WBC. CRP increased to 2.20, previously 1.5. Denies nausea, vomiting or diarrhea. Denies abdominal pain. Denies foot pain, in a patient with diabetic neuropathy. Denies chest pain, palpitations or shortness of breath. Maintaining O2 sats in the high 90s on room air. 06/28/2024 tissue culture reporting presumptive staph aures strep a, preliminary blood cultures reporting no growth after 24 hours. Denies pain. Foot dressing recently changed. Maintained on vancomycin. Renal function stable. Afebrile. Denies chest pain, palpitations or shortness of breath. Blood sugars control led. Magnesium supplemented yesterday for a mag of 1.4, repeat level pending. Objective - Vital Signs Vital signs: Vital Signs Temp 97.6 F 06/28/24 07:12 Pulse 60 06/28/24 07:12 Resp 18 06/28/24 07:12 BP 107/62 06/28/24 07:12 Pulse Ox 98 06/28/24 07:12 FiO2 Intake & Output 06/27/24 06/28/24 06/28/24 18:59 06:59 18:59 Weight 81.647 kg Other: Voiding Method Toilet # Voids 3 2 # Bowel Movements 1 - Exam VS: Reviewed GENERAL: Alert and oriented x 3, sitting up in bed, no acute distress. HEENT: Atraumatic, normocephalic. Pupils equal, Conjunctiva normal. MMM. NECK: Supple,no JVD. LUNGS: Unlabored, equal air entry, CTA HEART: S1-S2 ,regular rate and rhythm, no murmurs, rubs or gallops. ABDOMEN: Soft, nontender, normoactive bowel sounds. No guarding. EXTREMITIES: Left foot third toe dressing clean dry and intact, minimal dorsal edema. NEUROLOGICAL: Cranial nerves II through XII grossly intact. Strength and sensation grossly intact. SKIN: Warm, Dry, no rashes noted. Microbiology 06/25/24 22:45 Blood Blood Culture - Preliminary 06/26/24 11:20 Toe - Left Third Gram Stain - Preliminary 06/26/24 11:20 Toe - Left Third Tissue Culture - Preliminary Presumptive Staph aureus Strep A - Labs CBC & Chem 7: 06/28/24 03:04 06/28/24 03:04 Labs: Abnormal Lab Results - Last 24 Hours (Table) 06/27/24 06/28/24 06/28/24 Range/Units 20:47 03:04 03:04 RBC 3.24 L (4.40-5.60) X 10*6/uL Hgb 10.7 L (13.0-17.0) g/dL Hct 31.9 L (39.6-50.0) % MCV 98.5 H (80.0-97.0) FL MCH 33.0 H (27.0-32.0) pg RDW 15.0 H (11.5-14.5) % Eosinophils # 0.38 H (0.04-0.35) X 10*3/uL POC Glucose (mg/dL) 159 H (70-110) mg/dL Calcium 8.2 L (8.7-10.3) mg/dL Microbiology - Last 24 Hours (Table) 06/26/24 11:20 Gram Stain - Preliminary Toe - Left Third Tissue Culture - Preliminary Presumptive Staph aureus Strep A 06/25/24 22:45 Blood Culture - Preliminary Blood Assessment and Plan Assessment: (1) Diabetic foot infection, left third toe osteomyelitis, presumptive staph aures strep a Current Visit: Yes Status: Acute Code(s): E11.628 - TYPE 2 DIABETES MELLITUS WITH OTHER SKIN COMPLICATIONS; L08.9 - LOCAL INFECTION OF THE SKIN AND SUBCUTANEOUS TISSUE, UNSP SNOMED Code(s): 272053653 (2) Penicillin allergy Current Visit: Yes Status: Acute Code(s): Z88.0 - ALLERGY STATUS TO PENICILLIN SNOMED Code(s): 76283869 (3) Type 2 diabetes mellitus with foot ulcer Current Visit: Yes Status: Acute Code(s): E11.621 - TYPE 2 DIABETES MELLITUS WITH FOOT ULCER; L97.509 - NON-PRESSURE CHRONIC ULCER OTH PRT UNSP FOOT W UNSP SEVERITY SNOMED Code(s): 1343009382688 (4) atrial fibrillation with permanent pacemaker Plan: Continue on current medication regimen ,monitoring and symptomatic treatment. Local wound care. antibiotics as per infectious disease with close monitoring of renal function. Repeat labs ordered for am. Discharge planning in progress pending finalizing wound culture. The impression and plan of care has been dictated as directed. : I performed a history and examination of this patient, discussed the same with the dictator. I agree with the dictator's note ,documented as a scribe. Any additional findings or plans will be noted.
[2024-06-28] MEDS: VANCOMYCIN TROUGH DUE 1 EACH MISC MISCELLANE ONE (15:58)
--- NOTE | 2024-06-28 16:12 | P.PN ---
Subjective Progress Note Date: 06/27/24 Principal diagnosis: Reason for follow-up is left third toe diabetic foot infection/osteomyelitis Patient is a 73-year-old male with a past medical history significant for diabetes mellitus hyperlipidemia atrial fibrillation and this patient apparently has been dealing with an ulcer to the left third toe presented to hospital with worsening swelling and redness he did have abnormal x-ray suggestive of osteomyelitis prompting this consultation. On today's evaluation that is 06/27/2024, patient has been afebrile, patient is breathing comfortably and is currently on room air, patient denies having any significant cough no chest pain, patient denies nausea vomiting or diarrhea and no abdominal pain denies any worsening pain to the left third toe area. Patient white count 7.27 sed rate is 25 creatinine is 1.2 CRP 2.20 cultures currently pending Objective - Vital Signs Vital signs: Vital Signs Temp 97.6 F 06/27/24 07:08 Pulse 60 06/27/24 07:08 Resp 17 06/27/24 07:08 BP 123/66 06/27/24 07:08 Pulse Ox 97 06/27/24 07:08 FiO2 Intake & Output 06/26/24 06/27/24 06/27/24 18:59 06:59 18:59 Other: Voiding Method Toilet # Voids 3 2 - Exam GENERAL DESCRIPTION: An elderly male lying in bed in no distress RESPIRATORY SYSTEM: Unlabored breathing , decreased breath sounds at bases HEART: S1 S2 regular rate and rhythm , ABDOMEN: Soft , no tenderness EXTREMITIES: Left foot is currently dressed no drainage - Labs CBC & Chem 7: 06/28/24 03:04 06/28/24 03:04 Labs: Abnormal Lab Results - Last 24 Hours (Table) 06/27/24 06/27/24 Range/Units 02:32 02:32 RBC 3.49 L (4.40-5.60) X 10*6/uL Hgb 11.2 L (13.0-17.0) g/dL Hct 33.9 L (39.6-50.0) % MCV 97.1 H (80.0-97.0) FL MCH 32.1 H (27.0-32.0) pg RDW 15.1 H (11.5-14.5) % Eosinophils # 0.44 H (0.04-0.35) X 10*3/uL ESR 25 H (0-20) mm/Hr Magnesium 1.4 L (1.5-2.4) mg/dL C-Reactive Protein 2.20 H (0.00-0.80) mg/dL Assessment and Plan (1) Diabetic foot infection Current Visit: Yes Status: Acute Code(s): E11.628 - TYPE 2 DIABETES MELLITUS WITH OTHER SKIN COMPLICATIONS; L08.9 - LOCAL INFECTION OF THE SKIN AND SUBCUT ANEOUS TISSUE, UNSP SNOMED Code(s): 828802237 (2) Penicillin allergy Current Visit: Yes Status: Acute Code(s): Z88.0 - ALLERGY STATUS TO PENICILLIN SNOMED Code(s): 92252807 (3) Type 2 diabetes mellitus with foot ulcer Current Visit: Yes Status: Acute Code(s): E11.621 - TYPE 2 DIABETES MELLITUS WITH FOOT ULCER; L97.509 - NON-PRESSURE CHRONIC ULCER OTH PRT UNSP FOOT W UNSP SEVERITY SNOMED Code(s): 7665681376721 Plan: 1patient presented hospital with increasing swelling and redness to the left third toe in this patient who did have a callus on the tip of the third toe which has been debrided now presenting with a cellulitis x-ray did not show any bony changes suggestive of osteomyelitis likely from gram-positive skin verna 2-penicillin allergy that would limit the number of antibiotics safe to use 3-patient did have mild elevated inflammatory markers cultures are currently pending 4-patient will be treated with vancomycin pharmacy to dose target trough of 15 while watching kidney function and Vanco trough closely with the discharge antibiotic on the basis of final culture Dictation was produced using [employer] dictation software. please excuse any grammatical, word or spelling errors. Time with Patient: Less than 30
--- NOTE | 2024-06-28 16:12 | P.PN ---
Subjective Progress Note Date: 06/28/24 Principal diagnosis: Reason for follow-up is left third toe diabetic foot infection/osteomyelitis Patient is a 73-year-old male with a past medical history significant for diabetes mellitus hyperlipidemia atrial fibrillation and this patient apparently has been dealing with an ulcer to the left third toe presented to hospital with worsening swelling and redness he did have abnormal x-ray suggestive of osteomyelitis prompting this consultation. On today's evaluation that is 06/28/2024, Patient is afebrile this morning patient denies having any chest pain shortness of breath or cough, the patient is currently on room air, patient denies any abdominal pain no diarrhea no nausea no vomiting, patient denies any worsening pain to the left third toe. Patient white count 6.56 creatinine is 1.0 Vanco trough is 12.7 local culture currently growing Staph aureus and strep today Objective - Vital Signs Vital signs: Vital Signs Temp 97.6 F 06/28/24 07:12 Pulse 60 06/28/24 07:12 Resp 18 06/28/24 07:12 BP 107/62 06/28/24 07:12 Pulse Ox 98 06/28/24 07:12 FiO2 Intake & Output 06/27/24 06/28/24 06/28/24 18:59 06:59 18:59 Weight 81.647 kg Other: Voiding Method Toilet # Voids 3 2 # Bowel Movements 1 - Exam GENERAL DESCRIPTION: An elderly male lying in bed in no distress RESPIRATORY SYSTEM: Unlabored breathing , decreased breath sounds at bases HEART: S1 S2 regular rate and rhythm , ABDOMEN: Soft , no tenderness EXTREMITIES: Left foot is currently dressed no drainage - Labs CBC & Chem 7: 06/28/24 03:04 06/28/24 03:04 Labs: Abnormal Lab Results - Last 24 Hours (Table) 06/27/24 06/28/24 06/28/24 Range/Units 20:47 03:04 03:04 RBC 3.24 L (4.40-5.60) X 10*6/uL Hgb 10.7 L (13.0-17.0) g/dL Hct 31.9 L (39.6-50.0) % MCV 98.5 H (80.0-97.0) FL MCH 33.0 H (27.0-32.0) pg RDW 15.0 H (11.5-14.5) % Eosinophils # 0.38 H (0.04-0.35) X 10*3/uL POC Glucose (mg/dL) 159 H (70-110) mg/dL Calcium 8.2 L (8.7-10.3) mg/dL Microbiology - Last 24 Hours (Table) 06/26/24 11:20 Gram Stain - Preliminary Toe - Left Third Tissue Culture - Preliminary Presumptive Staph aureus Strep A 06/25/24 22:45 Blood Culture - Preliminary Blood Assessment and Plan (1) Diabetic foot infection Current Visit: Yes Status: Acute Code(s): E11.628 - TYPE 2 DIABETES MELLITUS WITH OTHER SKIN COMPLICATIONS; L08.9 - LOCAL INFECTION OF THE SKIN AND SUBCUTANEOUS TISSUE, UNSP SNOMED Code(s): 274319795 (2) Penicillin allergy Current Visit: Yes Status: Acute Code(s): Z88.0 - ALLERGY STATUS TO PENICILLIN SNOMED Code(s): 90525295 (3) Type 2 diabetes mellitus with foot ulcer Current Visit: Yes Status: Acute Code(s): E11.621 - TYPE 2 DIABETES MELLITUS WITH FOOT ULCER; L97.509 - NON-PRESSURE CHRONIC ULCER OTH PRT UNSP FOOT W UNSP SEVERITY SNOMED Code(s): 8892196332926 Plan: 1patient presented hospital with increasing swelling and redness to the left third toe in this patient who did have a callus on the tip of the third toe whi ch has been debrided now presenting with a cellulitis x-ray did not show any bony changes suggestive of osteomyelitis likely from gram-positive skin verna 2-penicillin allergy that would limit the number of antibiotics safe to use 3-patient did have mild elevated inflammatory markers cultures are currently growing Staph aureus with sensitivities pending and strep today 4-patient currently being treated with vancomycin pharmacy to dose target trough of 15 while waiting for the culture to finalize we will order PICC line for outpatient IV antibiotics Dictation was produced using [employer] dictation software. please excuse any grammatical, word or spelling errors. Time with Patient: Less than 30
[2024-06-28 17:00] LABS: Glucose,Whole Blood 90 mg/dL (70-110)
[2024-06-28 20:49] LABS: Glucose,Whole Blood 109 mg/dL (70-110)
[2024-06-29] MEDS: VANCOMYCIN 1,500 MG in SODIUM CHLORIDE 0.9% 500 ML 500 ML IVPB SCH (03:13)
[2024-06-29 06:06] LABS: Glucose,Whole Blood 90 mg/dL (70-110)
[2024-06-29] MEDS: MAGNESIUM SULFATE-D5W PMX 1 GM in DEXTROSE/WATER 1 100ML.BAG IVPB ONE (09:02)
[2024-06-29 10:12] VITALS: BP 135/69; PULSE 63; RESP 18; TEMP 97.9
[2024-06-29 11:09] LABS: Glucose,Whole Blood 70 mg/dL (70-110)
--- NOTE | 2024-06-29 11:49 | P.DS ---
Providers Date of admission: 06/25/24 21:19 Expected date of discharge: 06/29/24 Attending physician: Cameron Chandler Consults: 06/25/24 21:16 Consult Physician Urgent Consulting Provider: Carlos Alberto Green Consult Reason/Comments: Osteomyelitis Do you want consulting provider notified?: Yes, Notify in am Consult Physician Urgent Consulting Provider: Monico Cabello Consult Reason/Comments: Osteomyelitis Do you want consulting provider notified?: Yes, Notify in am Primary care physician: Cameron Chandler [facility] Course: Final Diagnosis: (1) Diabetic foot infection, left third toe osteomyelitis, staph aures strep a, resistant to clindamycin Current Visit: Yes Status: Acute Code(s): E11.628 - TYPE 2 DIABETES MELLITUS WITH OTHER SKIN COMPLICATIONS; L08.9 - LOCAL INFECTION OF THE SKIN AND SUBCUTANEOUS TISSUE, UNSP SNOMED Code(s): 405587553 (2) Penicillin allergy Current Visit: Yes Status: Acute Code(s): Z88.0 - ALLERGY STATUS TO PENICILLIN SNOMED Code(s): 00257989 (3) Type 2 diabetes mellitus with foot ulcer Current Visit: Yes Status: Acute Code(s): E11.621 - TYPE 2 DIABETES MELLITUS WITH FOOT ULCER; L97.509 - NON-PRESSURE CHRONIC ULCER OTH PRT UNSP FOOT W UNSP SEVERITY SNOMED Code(s): 7107735181187 (4) atrial fibrillation with permanent pacemaker Hospital course: Carlos Alberto a 73-year-old male well-known to me. He is a type II diabetic that is been fairly well-controlled. I have been seeing also at the wound center along with the office. The wound center treatment has been for diabetic foot ulcer to one of his right toes. I see with wound center debriding him on June 23. His toe looked normal at that time. He reports home care came and change dressing on Thursday morning. He indicates they said it looked good. He reports Thursday night and Thursday his toe began swelling and becoming red and it became swelling up his foot. It was significant, they contacted the on-call pager. I spoke with his daughter and sent him emergency room. He received Rocephin and vancomycin emergency room. Labs were drawn. Other than a hyperkalemia and mild chronic renal failure they looked normal. X-ray of the toe showed soft tissue swelling of the third digit with increased lucency concerning for osteomyelitis. He is now resting comfortably in his hospital bed. He denies any chest pains pressures or shortness of breath. He has an extensive cardiac history as well. Does not have any symptoms or issues cardiac hurt at this time. 06/27/2024 penicillin allergy, maintained on vancomycin as per ID. Renal function near baseline, creatinine 1.2. blood and tissue cultures finalizing. Afebrile, normal WBC. CRP increased to 2.20, previously 1.5. Denies nausea, vomiting or diarrhea. Denies abdominal pain. Denies foot pain, in a patient with diabetic neuropathy. Denies chest pain, palpitations or shortness of breath. Maintaining O2 sats in the high 90s on room air. 06/28/2024 tissue culture reporting presumptive staph aures strep a, preliminary blood cultures reporting no growth after 24 hours. Denies pain. Foot dressing recently changed. Maintained on vancomycin. Renal function stable. Afebrile. D enies chest pain, palpitations or shortness of breath. Blood sugars controlled. Magnesium supplemented yesterday for a mag of 1.4, repeat level pending. Microbiology 06/26/24 11:20 Toe - Left Third Gram Stain - Preliminary 06/26/24 11:20 Toe - Left Third Tissue Culture - Preliminary Staphylococcus aureus Strep A 06/25/24 22:45 Blood Blood Culture - Preliminary Denies chest pain, palpitations or shortness of breath. Patient will be discharged home today in a stable condition with guarded p rognosis pending PICC line placement, DC antibiotics and clearance per ID. The impression and plan of care has been dictated as directed. : I performed a history and examination of this patient, discussed the same with the dictator. I agree with the dictator's note ,documented as a scribe. Any additional findings or plans will be noted. Patient Condition at Discharge: Stable Plan - Discharge Summary New Discharge Prescriptions: New ceFAZolin [Kefzol] 2 gm IVP Q8HR #120 each Continue lisinopriL [Zestril] 5 mg PO HS Atorvastatin [Lipitor] 80 mg PO DAILY allopurinoL [Zyloprim] 100 mg PO BID metFORMIN HCL [Glucophage] 500 mg PO BID Furosemide [Lasix] 20 mg PO Q48H Rivaroxaban [Xarelto] 20 mg PO HS Dronedarone [Multaq] 400 mg PO AC-BID Cinnamon Bark [Cinnamon] 1,000 mg PO BID Collagenase [Santyl Ointment] 1 applic TOPICAL DAILY Pregabalin [Lyrica] 100 mg PO BID Semaglutide [Ozempic] 1 mg SQ TU Omeprazole [PriLOSEC] 20 mg PO Q48H Sodium Chloride 0.9% Irrigatio [Saline 0.9% Irrigation Bottle] 1 dose TOPICAL DAILY Discharge Medication List Atorvastatin [Lipitor] 80 mg PO DAILY 03/31/14 [History] allopurinoL [Zyloprim] 100 mg PO BID 03/31/14 [History] lisinopriL [Zestril] 5 mg PO HS 03/31/14 [History] Furosemide [Lasix] 20 mg PO Q48H 01/22/16 [History] metFORMIN HCL [Glucophage] 500 mg PO BID 01/22/16 [History] Rivaroxaban [Xarelto] 20 mg PO HS 05/06/16 [History] Cinnamon Bark [Cinnamon] 1,000 mg PO BID 06/26/24 [History] Collagenase [Santyl Ointment] 1 applic TOPICAL DAILY 06/26/24 [History] Dronedarone [Multaq] 400 mg PO AC-BID 06/26/24 [History] Omeprazole [PriLOSEC] 20 mg PO Q48H 06/26/24 [History] Pregabalin [Lyrica] 100 mg PO BID 06/26/24 [History] Semaglutide [Ozempic] 1 mg SQ TU 06/26/24 [History] Sodium Chloride 0.9% Irrigatio [Saline 0.9% Irrigation Bottle] 1 dose TOPICAL DAILY 06/26/24 [History] ceFAZolin [Kefzol] 2 gm IVP Q8HR #120 each 06/29/24 [Rx] Follow up Appointment(s)/Referral(s): Carlos Alberto Green DO [Doctor of Osteopathic Medicine] - 07/21/24 9:30 am [facility], [NON-STAFF] - [facility] [NON-STAFF] - 07/07/24 9:00 am Cameron Chandler MD [Primary Care Provider] - 07/14/24 2:30 pm Monico Cabello MD [STAFF PHYSICIAN] - 1 Week Ambulatory/Diagnostic Orders: Basic Metabolic Panel [LAB.AMB] Location: None Selected C Reactive Protein [LAB.AMB] Location: None Selected Complete Blood Count w/diff [LAB.AMB] Location: None Selected Erythrocyte Sedimentation Rate [LAB.AMB] Location: None Selected Activity/Diet/Wound Care/Special Instructions: Patient to offload foot,off work until wound heals.
--- NOTE | 2024-06-29 12:14 | P.PN ---
Subjective Progress Note Date: 06/29/24 Principal diagnosis: Reason for follow-up is left third toe diabetic foot infection/osteomyelitis Patient is a 73-year-old male with a past medical history significant for diabetes mellitus hyperlipidemia atrial fibrillation and this patient apparently has been dealing with an ulcer to the left third toe presented to hospital with worsening swelling and redness he did have abnormal x-ray suggestive of osteomyelitis prompting this consultation. On today's evaluation that is 06/29/2024,the patient denies any fever or any chills, patient is breathing comfortably on room air, the patient denies chest pain shortness of breath and no significant cough, patient denies abdominal pain, no nausea vomiting or diarrhea. Denies any worsening pain to the left third toe. Patient local culture finalized with MSSA and strep Objective - Vital Signs Vital signs: Vital Signs Temp 97.9 F 06/29/24 08:06 Pulse 63 06/29/24 08:06 Resp 18 06/29/24 08:06 BP 135/69 06/29/24 08:06 Pulse Ox 98 06/29/24 08:06 FiO2 Intake & Output 06/28/24 06/29/24 06/29/24 18:59 06:59 18:59 Other: Voiding Method Toilet # Voids 3 2 - Exam GENERAL DESCRIPTION: An elderly male lying in bed in no distress RESPIRATORY SYSTEM: Unlabored breathing , decreased breath sounds at bases HEART: S1 S2 regular rate and rhythm , ABDOMEN: Soft , no tenderness EXTREMITIES: Left third toe tip swelling redness slightly decreased - Labs CBC & Chem 7: 06/28/24 03:04 06/28/24 03:04 Labs: Abnormal Lab Results - Last 24 Hours (Table) 06/29/24 Range/Units 03:06 Magnesium 1.5 L (1.6-2.3) mg/dL Microbiology - Last 24 Hours (Table) 06/26/24 11:20 Gram Stain - Preliminary Toe - Left Third Tissue Culture - Preliminary Staphylococcus aureus Strep A 06/25/24 22:45 Blood Culture - Preliminary Blood Assessment and Plan (1) Diabetic foot infection Current Visit: Yes Status: Acute Code(s): E11.628 - TYPE 2 DIABETES MELLITUS WITH OTHER SKIN COMPLICATIONS; L08.9 - LOCAL INFECTION OF THE SKIN AND SUBCUTANEOUS TISSUE, UNSP SNOMED Code(s): 558758282 (2) Penicillin allergy Current Visit: Yes Status: Acute Code(s): Z88.0 - ALLERGY STATUS TO PENICILLIN SNOMED Code(s): 64471665 (3) Type 2 diabetes mellitus with foot ulcer Current Visit: Yes Status: Acute Code(s): E11.621 - TYPE 2 DIABETES MELLITUS WITH FOOT ULCER; L97.509 - NON-PRESSURE CHRONIC ULCER OTH PRT UNSP FOOT W UNSP SEVERITY SNOMED Code(s): 5121144151256 Plan: 1patient presented hospital with increasing swelling and redness to the left third toe in this patient who did have a callus on the tip of the third toe which has been debrided now presenting with a cellulitis x-ray did not show any bony changes suggestive of osteomyelitis likely from gram-positive skin verna 2-penicillin allergy that would limit the number of antibiotics safe to use 3-patient did have mild elevated inflammatory markers cultures are currently growing MSSA and group A strep 4-we will discontinue vancomycin start the patient on cefazolin if the patient continues to tolerate plan is for outpatient IV cefazolin prescription provided to the director case management multiple question concern answered Dictation was produced using [employer] dictation software. please excuse any gr ammatical, word or spelling errors. Time with Patient: Less than 30
--- NOTE | 2024-06-29 14:05 | P.PN ---
Subjective Progress Note Date: 06/29/24 Principal diagnosis: Osteomyelitis Patient is seen and examined today as a follow-up. He denies any acute changes through the night. No fevers or chills, no bodyaches. He remains on IV antibiotics. He is scheduled to get PICC line placement today. No increased redness on his foot or toe. Objective - Vital Signs Vital signs: Vital Signs Temp 97.5 F L 06/29/24 01:56 Pulse 56 L 06/29/24 01:56 Resp 17 06/29/24 01:56 BP 125/78 06/29/24 01:56 Pulse Ox 95 06/29/24 01:56 FiO2 Intake & Output 06/28/24 06/29/24 06/29/24 18:59 06:59 18:59 Other: Voiding Method Toilet # Voids 3 - Exam General appearance: The patient is alert, oriented, appears in no acute distress. HET: Head is normocephalic and atraumatic. Neck: Supple. Abdomen: Soft, nondistended. Extremities: Left foot with some swelling. Warm to the touch with good capillary refill. Palpable bilateral PT and DP pulses. Patient has thick toenails bilaterally. Left foot third toe with diabetic ulcer to the plantar aspect of the distal tip small amount of drainage. Third toe has some minimal erythema and swelling to dorsal aspect. Neurological: No focal deficits. Alert and oriented. - Labs CBC & Chem 7: 06/28/24 03:04 06/28/24 03:04 Labs: Abnormal Lab Results - Last 24 Hours (Table) 06/28/24 06/28/24 06/29/24 Range/Units 03:04 03:04 03:06 RBC 3.24 L (4.40-5.60) X 10*6/uL Hgb 10.7 L (13.0-17.0) g/dL Hct 31.9 L (39.6-50.0) % MCV 98.5 H (80.0-97.0) FL MCH 33.0 H (27.0-32.0) pg RDW 15.0 H (11.5-14.5) % Eosinophils # 0.38 H (0.04-0.35) X 10*3/uL Calcium 8.2 L (8.7-10.3) mg/dL Magnesium 1.5 L (1.6-2.3) mg/dL Microbiology - Last 24 Hours (Table) 06/26/24 11:20 Gram Stain - Preliminary Toe - Left Third Tissue Culture - Preliminary Staphylococcus aureus Strep A 06/25/24 22:45 Blood Culture - Preliminary Blood Assessment and Plan Assessment: 1. Left third toe osteomyelitis 2. Status post previous callus removal of the left third toe 3. Diabetes mellitus 4. Diabetic neuropathy 4. Atrial fibrillation with permanent pacemaker Plan: 1. Continue local wound care as ordered 2. Continue antibiotics per recommendations from infectious disease 3. No plans at this time for any vascular surgical intervention Thank you for this consultation, patient is cleared from vascular surgery. He can follow-up as needed. We will sign off at this time. The impression and plan of care has been dictated as directed. Dr. Green I performed a history and examination of this patient, discussed the same with the dictator. I agree with the dictator's note ,documented as a scribe. Any a dditional findings or plans will be noted.
--- NOTE | 2024-06-29 15:52 | XR ---
EXAMINATION TYPE: XR chest 1V portable DATE OF EXAM: 06/29/2024 3:37 PM COMPARISON: Chest radiographs from 07/18/2022 TECHNIQUE: XR chest 1V portable Portable AP radiograph of the chest. CLINICAL INDICATION:Male, 73 years old with history of PICC like placement; FINDINGS: Lungs/Pleura: Low lung volumes without pleural effusion or pneumothorax. Diffuse scattered reticular opacities. Heart/mediastinum: Cardiomediastinal silhouette is enlarged. Two lead cardiac conduction device overl lonnie the left hemithorax with lead tips projecting over the right ventricle and right atrium. Musculoskeletal: No acute osseous pathology. Other findings: None Lines/Tubes: Interval placement of right PICC line with distal tip terminating in the right atrium. IMPRESSION: 1. Right-sided PICC line with distal tip terminating in the right atrium. No pneumothorax. 2. Diffuse scattered reticular opacities concerning for pneumonia. [facility], , 06/29/2024 3:50 PM
[2024-06-30] MEDS ORDERED: VANCOMYCIN TROUGH DUE 1 EACH MISC MISCELLANE ONE (15:00)
== END 2024-06-29 17:13 | disposition home or self-care (01) | DRG 638 ==
LOC: EC 18:22 → 4SSUR 21:19
PROVIDERS: ADMIT Family Medicine; ATTEND Family Medicine
PROC: 02HV33Z Insertion of Infusion Device into Superior Vena Cava, Percutaneous Approach (ICD-10-PCS; principal; 2024-06-29 14:25)
DX: E11.69 Type 2 diabetes mellitus with other specified complication (principal); M86.8X7 Other osteomyelitis, ankle and foot; B95.0 Streptococcus, group A, as the cause of diseases classified elsewhere; B95.61 Methicillin susceptible Staphylococcus aureus infection as the cause of diseases classified elsewhere; E11.22 Type 2 diabetes mellitus with diabetic chronic kidney disease; E11.42 Type 2 diabetes mellitus with diabetic polyneuropathy; I12.9 Hypertensive chronic kidney disease with stage 1 through stage 4 chronic kidney disease, or unspecified chronic kidney disease; Z16.29 Resistance to other single specified antibiotic; E11.621 Type 2 diabetes mellitus with foot ulcer; E11.628 Type 2 diabetes mellitus with other skin complications; I48.91 Unspecified atrial fibrillation; L97.512 Non-pressure chronic ulcer of other part of right foot with fat layer exposed; K21.9 Gastro-esophageal reflux disease without esophagitis; G47.30 Sleep apnea, unspecified; E78.5 Hyperlipidemia, unspecified; M10.9 Gout, unspecified; N18.2 Chronic kidney disease, stage 2 (mild); E87.5 Hyperkalemia; L03.032 Cellulitis of left toe; Z96.651 Presence of right artificial knee joint; Z79.01 Long term (current) use of anticoagulants; Z79.84 Long term (current) use of oral hypoglycemic drugs; Z79.899 Other long term (current) drug therapy; Z87.891 Personal history of nicotine dependence; Z88.0 Allergy status to penicillin; Z95.0 Presence of cardiac pacemaker
CPT/HCPCS: 36415; 36573; 71045; 80048; 80053; 80202; 82565; 83605; 83735; 84132; 85025; 85610; 85652; 85730; 86140; 87040; 87070; 87077; 87186; 87205; 87636; 96374; 99285

== ENCOUNTER → 2024-08-29 | Outpatient (CLI) | payer MEDICARE ==
[2024-08-29 15:39] LABS: HCT 35.1 % (39.6-50.0); HGB 11.5 g/dL (13.0-17.0); MCH 32.5 pg (27.0-32.0); MCHC 32.8 g/dL (32.0-37.0); MCV 99.2 FL (80.0-97.0); Mean Platelet Volume 11.2 FL (9.5-12.2); NRBC Per 100 WBC 0 X 10*3/uL (0.00-0.01); Platelet Count 171 X 10*3/uL (140-440); RBC 3.54 X 10*6/uL (4.40-5.60); RDW 15.3 % (11.5-14.5); WBC 8.18 X 10*3/uL (4.50-10.00)
[2024-08-29 16:07] LABS: Blood Urea Nitrogen 31.9 mg/dL (9.0-27.0); Carbon Dioxide 20.5 mmol/L (21.6-31.8); Chloride 105 mmol/L (96-109); Potassium 5.1 mmol/L (3.5-5.5); Sodium 136 mmol/L (135-145)
== END | disposition home or self-care (01) ==
LOC: LABPAT 09:06
PROVIDERS: ATTEND Internal Medicine Clinical Cardiac Electrophysiology
DX: Z01.812 Encounter for preprocedural laboratory examination (principal); I48.19 Other persistent atrial fibrillation
CPT/HCPCS: 80051; 82565; 84520; 85027

== ENCOUNTER 2024-09-05 05:39 | Day surgery (SDC) | payer MEDICARE ==
[2024-08-31 10:41] VITALS: BMI 25.8
[2024-09-05] MEDS: IV FLUID CONTINUATION 1,000 ML IV ONE (06:11)
[2024-09-05] MEDS: SODIUM CHLORIDE 0.9% 1,000 ML IV SCH (06:35)
[2024-09-05 06:36] LABS: Glucose,Whole Blood 93 mg/dL (70-110)
[2024-09-05 07:08] LABS: ALT 35 U/L (4-49); AST 38 U/L (17-59); African American GFR (CKD) 83 (>60 ml/min/1.73 sqM); Albumin 4.3 g/dL (3.5-5.0); Alkaline Phosphatase 87 U/L (38-126); Anion Gap 10 mmol/L; Blood Urea Nitrogen 30 mg/dL (9-20); Calcium 9.5 mg/dL (8.4-10.2); Carbon Dioxide 25 mmol/L (22-30); Chloride 104 mmol/L (98-107); Glucose 88 mg/dL (74-99); Non-African American GFR(CKD) 72 (>60 ml/min/1.73 sqM); Potassium 4.5 mmol/L (3.5-5.1); Sodium 139 mmol/L (137-145); Total Bilirubin 1.1 mg/dL (0.2-1.3); Total Protein 7.6 g/dL (6.3-8.2)
[2024-09-05] MEDS: HEPARIN SOD,PORK IN 0.45% NACL 25,000 UNIT in 0.45% NACL 1 250ML.BAG IV ONE (07:27)
[2024-09-05] MEDS ORDERED: PROPOFOL 10 MG/ML 20 ML VIAL IV ONE (07:30)
[2024-09-05] MEDS ORDERED: HEPARIN SODIUM,PORCINE 10,000 UNIT/ML 1 ML VIAL ONE (07:30)
[2024-09-05] MEDS ORDERED: LIDOCAINE 1% INJ 10MG/ML (20 ML MDV) ONE (07:30)
[2024-09-05] MEDS ORDERED: ISOPROTERENOL 250 MCG/1.25 ML SYR IV ONE (07:30)
[2024-09-05] MEDS ORDERED: PHENYLEPHRINE 10 MG/ML VIAL ONE (07:30)
[2024-09-05] MEDS ORDERED: fentaNYL (PF) 50 MCG/ML 2 ML AMP ONE (07:30)
[2024-09-05] MEDS ORDERED: SUCCINYLCHOLINE CHLORIDE 200 MG/10 ML VIAL IV ONE (07:30)
--- NOTE | 2024-09-05 08:04 | P.HPCAR ---
History of Present Illness This is Dr. Allen dictating an H/P on this patient The patient was interviewed and examined IMPRESSION / ASSESSMENT: Persistent atrial fibrillation despite successful ablations in the past Previously he has undergone PVI, left atrial roof ablation, mitral reentry ablation and ablation of multiple focal atrial tachycardias as well as atrial flutter ablation He has an organized atrial fibrillation at this time with a cycle length of about 280 ms Upright atrial signals in V1, negative in 1, 2, aVL and aVF, isoelectric in 3 The peak of the signal in V1 has the same timing as the harpreet in lead III and lead I, simultaneous PLAN: EP study and ablation of atrial fibrillation and any atrial tachycardias Assessment of atrial flutter since this is a very difficult anatomic site to ablate. His caval tricuspid isthmus is V-shaped HPI Patient's main complaint remains tiredness and fatigue and shortness of breath Denies any fever chills cough or any pulmonary symptoms Denies any chest pain angina or syncope ROS: No fever chills or rigors, no cough, phlegm or expectoration, no nausea, vomiting or diarrhea, no hematuria, dysuria, no musculoskeletal complaints, no strokes or seizures, no skin lesions. EXAMINATION: Pulse rate 59 afebrile blood pressure 122/76 mmHg Heart sounds S1-S2 are normal no murmurs Regular at this time No JVD no hepatojugular reflux No lower extremity edema REVIEW OF LABS, ECG & MEDICAL DATA Sodium 139, potassium 4.5 BUN 30 and creatinine 1.0 Normal electrolytes and renal function Normal liver function Normal TSH of 3.7 Physical Exam Vitals: Vital Signs Temp Pulse Resp BP Pulse Ox 09/05/24 06:29 97.6 F 59 L 16 122/76 97 Intake and Output 09/04/24 09/05/24 09/05/24 22:59 06:59 14:59 Intake Total 20 0 Balance 20 0 Intake: IV 20 0 Other: Weight 82.1 kg Past Medical History Past Medical History: Atrial Fibrillation, Diabetes Mellitus, GERD/Reflux, Hyperlipidemia, Sleep Apnea/CPAP/BIPAP Additional Past Medical History / Comment(s): GOUT, SEE DR ALLEN'S HISTORY AND PHYSICAL, C PAP MACHINE History of Any Multi-Drug Resistant Organisms: None Reported Past Surgical History: Cardiac Ablation, Joint Replacement, Pacemaker Additional Past Surgical History / Comment(s): RIGHT KNEE REPLACEMENT X2, COLONOSCOPY, Past Anesthesia/Blood Transfusion Reactions: No Reported Reaction Type of Cardiac Device: Permanent Pacemaker Device Placement Date:: 02-21-2013 Smoking Status: Former smoker - Past Family History Mother Family Medical History: No Reported History Father Family Medical History: Pneumonia Additional Family Medical History / Comment(s): "heart problems" Physical Examination Vital Signs Temp Pulse Resp BP Pulse Ox 09/05/24 06:29 97.6 F 59 L 16 122/76 97 Intake and Output 09/04/24 09/05/24 09/05/24 22:59 06:59 14:59 Intake Total 20 0 Balance 20 0 Intake: IV 20 0 Other: Weight 82.1 kg Results 09/05/24 06:15 Cardiac Enzymes 09/05/24 Range/Units 06:15 AST 38 (17-59) U/L Comprehensive Metabolic Panel 09/05/24 Range/Units 06:15 Sodium 139 (137-145) mmol/L Potassium 4.5 (3.5-5.1) mmol/L Chloride 104 (98-107) mmol/L Carbon Dioxide 25 (22-30) mmol/L BUN 30 H (9-20) mg/dL Creatinine 1.02 (0.66-1.25) mg/dL Glucose 88 (74-99) mg/dL Calcium 9.5 (8.4-10.2) mg/dL AST 38 (17-59) U/L ALT 35 (4-49) U/L Alkaline Phosphatase 87 (38-126) U/L Total Protein 7.6 (6.3-8.2) g/dL Albumin 4.3 (3.5-5.0) g/dL Current Medications Generic Name Dose Route Start Last Admin Trade Name Freq PRN Reason Stop Dose Admin Sodium Chloride 1,000 mls @ 20 mls/hr 09/05/24 06:08 09/05/24 06:35 Saline 0.9% IV 10/05/24 06:07 20 mls/hr .Q24H KORI Administration Clindamycin Phosphate 300 mg/ 52 mls @ 50 mls/hr 09/05/24 07:45 Dextrose/Water IVPB 09/05/24 08:47 ONCE STA Protocol Intake and Output 09/04/24 09/05/24 09/05/24 22:59 06:59 14:59 Intake Total 20 0 Balance 20 0 Intake: IV 20 0 Other: Weight 82.1 kg 09/05/24 06:15
--- NOTE | 2024-09-05 08:07 | P.EPPROC ---
- EP Procedure Note Electrophysiology Procedure Note: Pacemaker interrogation reveals stable thresholds impedances Atrial pacing impedance 380 ohms RV pacing impedance 440 ohms
[2024-09-05] MEDS: LIDOCAINE 2% URO-JET JELLY 5 ML KIT URETHRAL ONE (08:10)
[2024-09-05] MEDS: CLINDAMYCIN 300 MG in DEXTROSE 5% IN WATER 50 ML IVPB STA (08:14)
[2024-09-05] MEDS: LIDOCAINE 1% INJ 10MG/ML (20 ML MDV) SQ ONE (08:15)
[2024-09-05] MEDS: IOPAMIDOL-370 100ML BTL INJ ONE (08:17)
[2024-09-05] MEDS ORDERED: ACETAMINOPHEN IV (For NPO) 1,000 MG in EMPTY BAG 1 BAG IVPB ONE (11:45)
[2024-09-05] MEDS: HEPARIN SODIUM (1,000 UNIT/ML) 1,000 UNIT in SODIUM CHLORIDE 0.9% 1,000 ML IRRIGATION ONE (11:45)
[2024-09-05] MEDS ORDERED: ACETAMINOPHEN TAB 325 MG TAB PO PRN (11:45)
--- NOTE | 2024-09-05 12:02 | P.EPPROC ---
- EP Procedure Note Electrophysiology Procedure Note: PROCEDURE A. fib ablation with redo PVI, redo left atrial roof ablation, redo left atrial flutter ablation DIAGNOSIS Atrial tachycardia/atrial fibrillation, symptomatic, refractory to therapy with prior ablations and Multaq RESULT No left atrial appendage mass seen on intracardiac echo Successful A. fib ablation/pulmonary vein isolation of all veins using cryo- ablation, to consolidate the previous ablation set Complete entrance block in all 4 veins confirmed No evidence for phrenic nerve injury Termination of atrial tachycardia, original cycle length 279 ms, with cryoablation of the left atrial roof. Complete roofline made Ablation of the mid portion of the cavotricuspid isthmus/atrial flutter ablation to consolidate the previous line Esophageal deflection YES PROCEDURE DETAILS Written informed consent prior to procedure. Patient brought to the EP lab. General anesthesia given. Heparin administered. A city maintained above 300 seconds Both groins prepped and draped per protocol and venous sheaths placed. Esophagus intubated, circa catheter for temperature monitoring an endoscope for possible esophageal deflection. Phrenic nerve monitoring performed. Esophageal temperature monitoring performed. Esophageal deflection performed if circa catheter overlapping with the balloon or circa temperature less than 27.5°C Intracardiac echocardiography performed. Pericardium evaluated. Left atrial appendage evaluated. Left atrium evaluated along with pulmonary veins Transseptal catheterization performed under fluoroscopic guidance and intracardiac echo guidance Cryoablation sheath exchanged, balloon catheter along with achieve catheter placed in the left atrium. Pulmonary veins isolated in the following sequence: Left superior pulmonary vein followed by left inferior pulmonary vein, followed by right inferior pulmonary vein and lastly right superior pulmonary vein. Phrenic nerve stimulation along with capture thresholds within the SVC and right superior pulmonary vein to identify the phrenic nerve proximity to the cryo- balloon. Pulmonary veins isolated and confirmed with entrance and exit block. Phrenic nerve integrity confirmed at the end of the procedure Ablation of the left atrial roof performed with sequential lesions from the left superior to the right superior pulmonary veins. Termination of atrial tachycardia when ablating the midsection of the roof. Voltage mapping confirmed successful ablation of the left atrial roof and the inter-pulmonary venous posterior wall. Voltage mapping of the cavotricuspid isthmus. Last time the cavotricuspid isthmus was difficult to ablate. Successful ablation had been performed and a complete line of block was noted. However this line was fairly narrow, 6 mm in the mid section. Additional RF lesions were applied in the mid section to consolidate the previously made atrial flutter RF line Diagnostic catheters for the high right atrium, His bundle, coronary sinus placed. LA and RA pressures recorded LA pressure: 25/-2/9 mmHg Diagnostic EP study with coronary sinus pacing and recording in sinus rhythm Baseline measurements: FL interval 236 ms, QRS 144 ms, QT 485 ms Patient is complete heart block paced rhythm High-dose Isopril infused. No inducible atrial fibrillation Pacemaker was reinterrogated. Rate responsiveness was turned on once again. Atrial pacing impedance 350 ohms. RV pacing impedance 400 ohms, stable Venous sheaths were removed and hemostasis assured with a closure device. Patient extubated and transferred to recovery PROCEDURES PERFORMED Diagnostic EP study CS pacing and recording Left and right transseptal catheterization Catheter the mapping of the tachycardia Intracardiac echocardiography Pulmonary vein isolation with transseptal and comprehensive EPS, [id number] Drug infusion, +[id number] Ablation of discrete arrhythmia/left atrial roof line, +[id number] Linear ablation, right atrium, +[id number]
--- NOTE | 2024-09-05 12:04 | P.PRLE ---
RE: Carlos Alberto Cuellar Dear Cameron Carlos Alberto Cuellar underwent successful ablation for atrial tachycardia/atrial fibrillation. He tolerated the procedure well without any acute complications. He will continue his anticoagulation and Multaq as before and all other cardiac medications. Thank you for entrusting me with the care of the patient. Warm regards Sincerely Eren Allen
[2024-09-05 15:09] LABS: Glucose,Whole Blood 87 mg/dL (70-110)
[2024-09-05] MEDS: FUROSEMIDE 20 MG TAB PO SCH (15:35)
[2024-09-05] MEDS: DRONEDARONE 400 MG TAB PO SCH (17:52)
[2024-09-05] MEDS: lisinopriL 5 MG TAB PO SCH (21:10)
[2024-09-05] MEDS: RIVAROXABAN 20 MG TAB PO SCH (21:11)
[2024-09-05] MEDS: allopurinoL 100 MG TAB PO SCH (21:11)
[2024-09-05] MEDS: PREGABALIN 100 MG CAP PO SCH (21:11)
[2024-09-06] MEDS: PANTOPRAZOLE 40 MG TABLET PO SCH (06:35)
--- NOTE | 2024-09-06 08:59 | P.DS ---
Providers Attending physician: Eren Allen Primary care physician: [facility] Course: Mr. Cuellar is doing well please. He is resting comfortably in bed. Denies any chest discomfort dizziness or lightheadedness or sore throat His groins have healed well no arrhythmias on telemetry. Maintain sinus rhythm with V pacing Twelve-lead EKG shows sinus mechanism with AV block with 100% RV pacing Blood pressure 102/60 mmHg afebrile Heart sounds are normal Breath sounds are clear Impression persistent atrial fibrillation/atrial tachycardia Status post ablation yesterday Termination occurred in the left atrial roof. Last time the roof been ablated using RF and noncapture was documented along the previous RF line along with a voltage map which showed adequacy of the left atrial roof ablation Termination occurred in the mid roof and cryoablation was used resulting in termination Voltage map was performed this time and there is complete isolation of the left atrial roof as well as the intervenous posterior wall of the LA RF ablation was also applied in the cavotricuspid isthmus and mid section PVI at an antral level was performed Plan Continue Xarelto continue cardiac medications follow-up with Dr. Meier in 1 week Continue Multaq Plan - Discharge Summary Discharge Rx Participant: No New Discharge Prescriptions: Continue RX: lisinopriL [Zestril] 5 mg PO HS RX: Atorvastatin [Lipitor] 80 mg PO DAILY RX: allopurinoL [Zyloprim] 100 mg PO BID RX: metFORMIN HCL [Glucophage] 500 mg PO BID RX: Furosemide [Lasix] 20 mg PO Q48H RX: Rivaroxaban [Xarelto] 20 mg PO HS RX: Dronedarone [Multaq] 400 mg PO AC-BID RX: Cinnamon Bark [Cinnamon] 1,000 mg PO BID RX: Pregabalin [Lyrica] 100 mg PO BID RX: Semaglutide [Ozempic] 1 mg SQ TU RX: Omeprazole [PriLOSEC] 20 mg PO Q48H Discharge Medication List RX: Atorvastatin [Lipitor] 80 mg PO DAILY 03/31/14 [History] RX: allopurinoL [Zyloprim] 100 mg PO BID 03/31/14 [History] RX: lisinopriL [Zestril] 5 mg PO HS 03/31/14 [History] RX: Furosemide [Lasix] 20 mg PO Q48H 01/22/16 [History] RX: metFORMIN HCL [Glucophage] 500 mg PO BID 01/22/16 [History] RX: Rivaroxaban [Xarelto] 20 mg PO HS 05/06/16 [History] RX: Cinnamon Bark [Cinnamon] 1,000 mg PO BID 06/26/24 [History] RX: Dronedarone [Multaq] 400 mg PO AC-BID 06/26/24 [History] RX: Omeprazole [PriLOSEC] 20 mg PO Q48H 06/26/24 [History] RX: Pregabalin [Lyrica] 100 mg PO BID 06/26/24 [History] RX: Semaglutide [Ozempic] 1 mg SQ TU 06/26/24 [History] Follow up Appointment(s)/Referral(s): Niya Meier MD [STAFF PHYSICIAN] - 1 Week Patient Instructions/Handouts: Cardiac Ablation (DC)
[2024-09-06] MEDS ORDERED: NON FORMULARY DRUG (Semaglutide [Ozempic] 1 MG/0.75 ML Each) SQ SCH (09:00)
[2024-09-06] MEDS: ATORVASTATIN 80 MG TAB PO SCH (09:05)
[2024-09-06 09:44] VITALS: BP 94/46; PULSE 60; RESP 16; TEMP 98.4
[2024-09-07] MEDS ORDERED: metFORMIN 500 MG TAB PO SCH (09:00)
== END 2024-09-06 10:44 | disposition home or self-care (01) ==
LOC: CATHEP 05:39 → 6NMEDSUR 14:39 → CATHEP 09-06 10:44
PROVIDERS: ATTEND Internal Medicine Clinical Cardiac Electrophysiology
DX: I47.19 Other supraventricular tachycardia (principal); I48.19 Other persistent atrial fibrillation; I48.92 Unspecified atrial flutter; I44.2 Atrioventricular block, complete; E11.9 Type 2 diabetes mellitus without complications; E78.5 Hyperlipidemia, unspecified; K21.9 Gastro-esophageal reflux disease without esophagitis; G47.30 Sleep apnea, unspecified; M10.9 Gout, unspecified; Z79.01 Long term (current) use of anticoagulants; Z79.85 Long-term (current) use of injectable non-insulin antidiabetic drugs; Z79.84 Long term (current) use of oral hypoglycemic drugs; Z79.899 Other long term (current) drug therapy; Z87.891 Personal history of nicotine dependence; Z95.0 Presence of cardiac pacemaker
CPT/HCPCS: 93005; 93623; 93655; 93656; 93657; 86900; 86901; 80053; 84443; 86850; C1759; C1894; C1769; C1760 ×3; C1730 ×2; C1731; C1733; C1766; C1732; J0330; J1644 ×3; J2003; J3010; J2704; Q9967; J2371; J0736